=== PATIENT | male | born 1980 | race Caucasian/White ===

== ENCOUNTER 2024-03-17 15:05 | Outpatient (AMB) | payer OTHER, SELFPAY ==
[2024-03-17 15:08] VITALS: BP 128/78; PULSE 54; O2SAT 98; BMI 25.3
--- NOTE | 2024-03-17 15:08 | MHC.PC.OV ---
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 He would like Citalopram 20 mg. continued. 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 ?? Prior PCP:? [facility] Last office visit/CPE:? 1 yr Acute issue(s):? Citalopram refill for Anxiety ?? PMHx:? Finasteride for hair loss. Lipomas SurgHx:?Lipomas, Mohs on R restoration. FHx:? Mom: Degen arthritis, Skin CA. mGF: Early [place] & CVA. Dad: Asthma, HTN, HLD, Depression. SocHx:? Nonsmoker. EtOH Weekends 1-2 or up to 5-6. No drugs PFSH Medical History (Updated 03/17/24 @ 15:36 by Romain Moya) Torn ACL Basal cell carcinoma Lipoma Surgical History (Updated 03/17/24 @ 15:18 by Leti Oconnor CMA) H/O vasectomy Family History (Updated 03/17/24 @ 15:23 by Leti Oconnor CMA) Father High blood pressure High cholesterol Substance abuse in family Mental health disorder Asthma Mother Hx of bilateral hip replacements Substance abuse in family Maternal Grandfather Cardiovascular disease Social History Household Members: Family Both parents involved: No Caregiver staying overnight: No Housing: House Are you a primary daycare teacher to a significant other at home: No Do you presently have visiting nurse or other home services: No 75 years or older and lives alone: No Alcohol intake: current Alcohol intake frequency: a few times a week Alcohol type: beer and other Comment: Weekends Patient Tobacco Use Status: Never used Tobacco e-Cigarette/Vaping Use: Never Used Agree to transfusion: No service: No Current occupational status: employed 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 1. Little interest or pleasure in doing things: not at all 2. Feeling down, depressed, or hopeless: not at all 3. Trouble falling or staying asleep, or sleeping too much: not at all 4. Feeling tired or having little energy: not at all 5. Poor appetite or overeating: not at all 6. Feeling bad about yourself - or that you are a failure or have let yourself or your family down: not at all 7. Trouble concentrating on things, such as reading the newspaper or watching television: not at all 8. Moving or speaking so slowly that other people could have noticed. Or the opposite - being so fidgety or restless that you have been moving around a lot more than usual: not at all 9. Thoughts that you would be better off or of hurting yourself in some way: not at all Total score: 0 Depression Screening Interpretation: Negative Depression Screening Done: Yes 99905 - PHQ-9 Billing: Yes Source: Developed by Drs. Lance Maria, Shakila Sanchez, Nakul Sparks and colleagues, with an educational mario from [employer]. Thrive Questionnaire Date Thrive assessed: 03/17/24 I am a: Patient What is your living situation today?: I have a steady place to live Within the past 12 months, did the food you bought not last and you didn't have the money to get more?: Never true Within the past 12 months, did you worry whether your food would run out before you got money to buy more?: Never true Do you have trouble paying for medicines?: No Do you have trouble getting transportation to medical appointments?: No Do you have trouble paying your heating and electricity bill?: No Do you have trouble taking care of your child, family member or friend?: No Do you have trouble with day-to-day activities such as bathing, preparing meals, shopping, managing finances, etc.?: No Are you currently unemployed and looking for a job?: No Are you interested in more education?: No THRIVE Score: 0 BRADLEY-7 AMB Questionnaire BRADLEY-7 Date BRADLEY - 7 assessed: 03/17/24 Feeling nervous, anxious, or on edge: 0 = Not at all Not being able to stop or control worryin = Not at all Worrying too much about different things: 0 = Not at all Trouble relaxin = Not at all Being so restless that it is hard to sit still: 0 = Not at all Becoming easily annoyed or irritable: 0 = Not at all Feeling afraid as if something awful might happen: 0 = Not at all Total BRADLEY-7 score (0-4 normal; 5-9 mild; 10-14 moderate; 15-21 severe): 0 Source: Developed by Drs. Lance Maria, Shakila Sanchez, Nakul Sparks and colleagues, with an educational mario from [employer]. BRADLEY-7 Assessment Billing BRADLEY-7 Assessment Tool: BRADLEY-7 Assessment 26600 Review of Systems Const Denies chills, Denies fatigue, Denies fever(s), Denies headache(s) and Denies weakness ENT Denies dizziness and Denies headache(s) Card Denies chest pain, Denies lightheadedness, Denies dyspnea and Denies other (Palpitations) Resp Denies cough, Denies dyspnea, Denies wheezing and Denies other ( shortness of breath) Musc Denies numbness and Denies tingling Neuro Denies dizziness, Denies headache(s), Denies numbness, Denies tingling, Denies paresthesias and Denies weakness Psych Denies anxiety and Denies depression Endo Denies fatigue Aller/Immun Denies wheezing Physical exam (Primary Care) BMI result Body Mass Index 25.3 Tobacco/Smoking Status: Tobacco use Status Tobacco use date assessed 03/17/24 03/17/24 15:15 Patient Tobacco Use Status Never used Tobacco 03/17/24 15:15 Depression Screening Interpretation: Negative Const General: no acute distress and well developed Nutritional Appearance: well nourished Orientation/consciousness: patient oriented x3 HENMT Head: Yes normocephalic and Yes atraumatic Eyes General: appearance normal, both eyes and all related structures Pupils: Equal, round and reactive pupils present EOM: EOMs intact bilaterally Resp Effort & Inspection: normal respiratory effort Auscultation: clear to auscultation bilaterally Cardio Rate: regular rate Rhythm: regular rhythm Heart sounds: S1 normal heart sound present, S2 normal heart sound present, no gallops, no murmurs and no rubs Neuro General: patient oriented x3 and gait normal Cranial nerves: Yes Equal, round and reactive pupils present Psych Affect: normal affect Assessment and Plan Assessment & Plan (1) Anxiety: Code(s): F41.9 - Anxiety disorder, unspecified Plan: Well?controlled?on?citalopram?20?mg?daily Continue?current?medication (2) Hair loss: Code(s): L65.9 - Nonscarring hair loss, unspecified Plan: Continue?finasteride (3) Lipoma: Code(s): D17.9 - Benign lipomatous neoplasm, unspecified Plan: History?of?multiple?lipomas Stable (4) Laboratory exam ordered as part of routine general medical examination: Code(s): Z00.00 - Encounter for general adult medical examination without abnormal findings Plan: Check?labs Orders: Orders Comprehensive [place]. Panel Fast Today Z00.00 - Encounter for general adult medical examination without abnormal findings Lipid Panel Today Z00.00 - Encounter for general adult medical examination without abnormal findings Prostate Specific Antigen Scr Today Z12.5 - Encounter for screening for malignant neoplasm of prostate Microalbumin, Random (w Creat) Today I10 - Essential (primary) hypertension TSH reflex Free T4 Today Z00.00 - Encounter for general adult medical examination without abnormal findings UA and rflx microscopic Today Z00.00 - Encounter for general adult medical examination without abnormal findings Medications: New citalopram 20 mg PO DAILY 90 days 90 tabs 2RF Coding Level of Care Code New Pt Level 3 (05382) Diagnoses Anxiety F41.9 Hair loss L65.9 Lipoma D17.9 Laboratory exam ordered as part of routine general medical examination Z00.00 Additional Codes BRADLEY-7 Assessment Billing - BRADLEY-7 Assessment Tool: BRADLEY-7 Assessment 11795 ([id number])
== END 2024-03-17 15:44 | disposition home or self-care (01) ==
PROVIDERS: PCP Family Medicine; Visit Provider Family Medicine
DX: D17.9 Benign lipomatous neoplasm, unspecified (principal); F41.9 Anxiety disorder, unspecified; L65.9 Nonscarring hair loss, unspecified
CPT/HCPCS: 99203

== ENCOUNTER 2024-05-22 08:31 | Outpatient (REF) | payer OTHER, SELFPAY ==
[2024-05-22 09:21] LABS: Appearance Urine Clear; Color Urine Yellow; Glucose Urine UA Negative (Negative); Leukocyte Esterase Urine Negative (Negative); Nitrite Urine Negative (Negative); Specific Gravity - Urine 1.025 (1.005-1.025); Urine Blood Negative (Negative); Urine Ketones Trace mg/dL (Negative); Urine Protein Negative (Neg-Trace)
[2024-05-22 09:55] LABS: Creatinine Urine 203.62 mg/dL; Microalbum/Creatinine Ratio Ur 3.9 ug/mg cr (<30)
[2024-05-22 10:13] LABS: Alanine Aminotransferase 20 U/L (0-40); Albumin Level 4.6 g/dL (3.5-5.0); Alkaline Phosphatase 65 U/L (39-117); Anion Gap 12 (12-20); Aspartate Amino Transferase 44 U/L (5-37); Blood Urea Nitrogen 21 mg/dL (9-16); Calcium 9.7 mg/dL (8.4-10.2); Carbon Dioxide 30 mmol/L (22-29); Chloride 103 mmol/L (96-108); Cholesterol 242 mg/dL (<200); Estimated Glomerular Filt Rate > 60; Glucose Fasting 81 mg/dL (60-99); HDL Cholesterol 60 mg/dL (>40); LDL Cholesterol Calculated 170 mg/dL (<100); Potassium 3.8 mmol/L (3.3-5.1); Sodium 141 mmol/L (135-145); Total Protein 7.4 g/dL (6.5-8.0); Triglycerides 63 mg/dL (<150)
[2024-05-22 10:16] LABS: Prostate Specific Antigen Scr 0.32 ng/mL (<0.05-4.0)
[2024-05-22 10:19] LABS: TSH reflex Free T4 2.05 uIU/mL (0.32-4.0)
== END 2024-05-22 08:32 | disposition home or self-care (01) ==
LOC: HO.WFDLDS 08:31
PROVIDERS: Visit Provider Family Medicine
DX: Z00.00 Encounter for general adult medical examination without abnormal findings (principal); I10 Essential (primary) hypertension; Z12.5 Encounter for screening for malignant neoplasm of prostate
CPT/HCPCS: 36415; 80053; 80061; 81003; 82043; 82570; 84153; 84443

== ENCOUNTER 2024-06-05 16:34 | Outpatient (AMB) | payer OTHER, SELFPAY ==
--- NOTE | 2024-06-05 16:38 | A.OFFPC_ITS ---
Vital Signs 06/05/24 16:39 Height 6 ft 2 in Weight 191 lb 2 oz BMI 24.5 BP 126/74 Blood Pressure Location Lt brachial Position Sitting Respiration 16 Pulse 54 Pulse Source Pulse Oximeter Pulse Oximetry (%) 94 Oxygen Delivery Method Room Air Intake Visit Reasons: cpe with follow up labs Intake Note: Discuss labs. 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 He does not have any health concerns today. Anxiety is well-controlled on citalopram 20 mg daily. We reviewed his lab results dated 05/22/2024. AST mildly elevated at 44. ALT and alkaline phosphatase within normal. Patient says he has been drinking more alcohol during the summer. He was away the weekend before he had the labs done on a trip. Consumed more alcohol at that time. Denies abdominal pain, weight loss, nausea, vomiting. We discussed that his LDL cholesterol is significantly elevated at 170. Patient says he has been eating more indiscriminately over the summer months. HDL cholesterol and triglycerides are within normal. No chest pain or shortness of breath. He is a nonsmoker. He is very active. He plays hockey. Patient sees Dermatology in [place] for skin exams. ROS: Constitutional: No unexplained weight loss, fever, chills, fatigue or night sweats. Eyes: No vision changes, blurry vision, double vision, eye pain, eye redness, eye discharge. ENT: No hearing loss, sneezing, congestion, runny nose or sore throat. Respiratory: No shortness of breath, cough or sputum production. Cardiovascular: No chest pain, chest pressure or chest discomfort. No palpitations or pedal edema. Gastrointestinal: No anorexia, nausea, vomiting or diarrhea. No abdominal pain or blood in stool. Genitourinary: No dysuria, hematuria, urinary frequency. No testicular masses, swelling or pain. Neurologic: No headache, dizziness, syncope, unilateral weakness, ataxia, numbness or tingling in the extremities. Musculoskeletal: No muscle pain, back pain, joint pain or swelling. Hematologic/Lymphatics: No bleeding or bruising. No painful lymph nodes. Skin: No rash or itching. Endocrine: No cold or heat intolerance. No polyuria or polydipsia. Psychiatric: No depression or anxiety. No SI/HI. Physical exam: Constitutional: Alert, in no distress. Head: Normocephalic. Eyes: Pupils are equal, round and reactive to light. Extraocular muscles intact. Ear, Nose and Throat: Canals clear. TMs normal. Normal nasal mucosa. No nasal discharge. No oral lesions. Neck: Supple, Full range of motion. No lymphadenopathy. No palpable thyroid masses. Respiratory: Clear to auscultation. Cardiovascular: S1 S2 regular. No murmurs. Gastrointestinal: Abdomen soft, non-tender, non-distended. Normal bowel sounds. No palpable masses. Genitourinary: Deferred exam. Neurologic: No focal neurological deficits. Symmetric patellar reflexes. Moves all extremities spontaneously. Sensation intact bilaterally. Skin: No rashes or lesions. Musculoskeletal: No gross deformities. Normal range of motion. Extremities: Warm and well perfused. No clubbing, cyanosis or edema. 3+ peripheral pulses bilaterally. Psychiatric: Normal mood and affect [facility] Medical History (Updated 06/06/24 @ 08:50 by BAIRON Portillo) Hyperlipidemia Liver enzyme elevation Torn ACL Basal cell carcinoma Lipoma Surgical History (Updated 03/17/24 @ 15:18 by Leti Oconnor CMA) H/O vasectomy Family History (Updated 03/17/24 @ 15:23 by Leti Oconnor CMA) Father High blood pressure High cholesterol Substance abuse in family Mental health disorder Asthma Mother Hx of bilateral hip replacements Substance abuse in family Maternal Grandfather Cardiovascular disease Social History (Updated 03/17/24 @ 15:29 by Leti Oconnor CMA) Household Members: Family Both parents involved: No Caregiver staying overnight: No Housing: House Are you a primary neurocritical care physician to a significant other at home: No Do you presently have visiting nurse or other home services: No 75 years or older and lives alone: No Alcohol intake: current Alcohol intake frequency: a few times a week Alcohol type: beer and other Comment: Weekends Patient Tobacco Use Status: Never used Tobacco e-Cigarette/Vaping Use: Never Used Agree to transfusion: No service: No Current occupational status: employed 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 Lance Maria, Shakila Sanchez, Nakul Sparks and colleagues, with an educational mario from [employer]. Physical exam (Primary Care) Vital Signs: Last Vital Signs Pulse 54 06/05/24 16:39 Resp 16 06/05/24 16:39 BP 126/74 06/05/24 16:39 Pulse Ox 94 06/05/24 16:39 Oxygen Delivery Method Room Air 06/05/24 16:39 BMI result Body Mass Index 24.5 Tobacco/Smoking Status: Tobacco use Status Tobacco use date assessed 03/17/24 06/05/24 16:41 Patient Tobacco Use Status Never used Tobacco 06/05/24 16:41 e-Cigarette/Vaping Use Never Used 06/05/24 16:41 Thrive Assessment: Date of Thrive Assessment Date Thrive assessed 03/17/24 06/05/24 16:41 Assessment and Plan Assessment & Plan (1) Routine physical examination: Code(s): Z00.00 - Encounter for general adult medical examination without abnormal fin dings Plan: Patient is seen today for a routine physical. As part of this visit we reviewed the following issues, which are considered and essential part of preventative health in this age group: - Testicular cancer screening, which includes self exam teaching - Screening for colon cancer - Referred. - Discussed Prostate cancer screening - PSA normal. - Blood pressure screening - Cholesterol screening - Nutritional and exercise counseling - Counseling of injury prevention including fire prevention, smoke alarms and seat belt usage - Screening for depression - Education about skin cancer - Recommendations about immunizations - Recommendation of an eye exam - Screening for substance abuse (2) Liver enzyme elevation: Code(s): R74.8 - Abnormal levels of other serum enzymes Plan: Mildly elevated liver enzyme. Suspect this is related to alcohol consumption over the summer. He will decrease and have labs repeated. Advised to call if he develops GI symptoms. (3) Hyperlipidemia: Code(s): E78.5 - Hyperlipidemia, unspecified Qualifiers: Hyperlipidemia type: pure hypercholesterolemia Qualified Code(s): E78.00 - Pure hypercholesterolemia, unspecified Plan: Trial of lifestyle modifications. Cholesterol goals: LDL cholesterol: Less than 130 (Limit consumption of red meat and animal fats,, fried foods and saturated fats to decrease this number. Avoid tobacco use) HDL cholesterol: More than 40 (Eat more nuts and fish (if no allergies) and exercise regularly to increase this number) Triglycerides: Less than 150 (Limit alcohol use, carbohydrates and concentrated sugars to decrease this number) Moderate intensity exercise for thirty minutes per day for at least 5 days per week is recommended. Repeat labs in 8 weeks. Plan CPE 1 year. Orders: Orders Lipid Panel 06/05/24 E78.5 - Hyperlipidemia, unspecified Alanine Aminotransferase 06/05/24 E78.5 - Hyperlipidemia, unspecified, R79.89 - Other specified abnormal findings of blood chemistry Aspartate Amino Transferase 06/05/24 E78.5 - Hyperlipidemia, unspecified, R79.89 - Other specified abnormal findings of blood chemistry Referrals Open Access Screening Colonoscopy Referral Z12.11 - Encounter for screening for malignant neoplasm of colon, Z12.12 - Encounter for screening for malignant neoplasm of rectum Medications: Refilled citalopram 20 mg PO DAILY 90 days 90 tabs 3RF Coding Level of Care Code Est Pt Prev Care 40-64y(04741) Diagnoses Routine physical examination Z00.00 Liver enzyme elevation R74.8 Pure hypercholesterolemia E78.00 Hyperlipidemia type: pure hypercholesterolemia
[2024-06-05 16:39] VITALS: BP 126/74; PULSE 54; RESP 16; O2SAT 94; BMI 24.5
== END 2024-06-05 16:59 | disposition home or self-care (01) ==
LOC: HO.HMGFM 16:34
PROVIDERS: PCP Family Medicine; Visit Provider Physician Assistant Medical
DX: Z00.00 Encounter for general adult medical examination without abnormal findings (principal); R74.8 Abnormal levels of other serum enzymes; E78.00 Pure hypercholesterolemia, unspecified
CPT/HCPCS: 99396

== ENCOUNTER 2024-10-08 10:27 | Outpatient (REF) | payer OTHER, SELFPAY ==
[2024-10-08 14:48] LABS: Alanine Aminotransferase 27 U/L (0-40); Aspartate Amino Transferase 50 U/L (5-37); Cholesterol 223 mg/dL (<200); HDL Cholesterol 46 mg/dL (>40); LDL Cholesterol Calculated 158 mg/dL (<100); Triglycerides 97 mg/dL (<150)
== END 2024-10-08 10:28 | disposition home or self-care (01) ==
LOC: HO.WFDLDS 10:27
PROVIDERS: Visit Provider Physician Assistant Medical
DX: E78.5 Hyperlipidemia, unspecified (principal); R79.89 Other specified abnormal findings of blood chemistry
CPT/HCPCS: 36415; 80061; 84450; 84460

== ENCOUNTER 2024-11-07 12:54 | Outpatient (REF) | payer OTHER, SELFPAY | END 2024-11-07 12:55 | disposition home or self-care (01) | LOC: HO.US 12:54 | PROVIDERS: PCP Family Medicine; Visit Provider Physician Assistant Medical | DX: R74.8 Abnormal levels of other serum enzymes (principal) ==

== ENCOUNTER → 2024-11-07 12:55 | Outpatient (BNV) | payer OTHER, SELFPAY | PROVIDERS: PCP Family Medicine; Visit Provider Radiology Diagnostic Radiology | DX: R74.8 Abnormal levels of other serum enzymes (principal) | CPT/HCPCS: 76705 ==

== ENCOUNTER 2024-11-18 09:18 | Outpatient (REF) | payer OTHER, SELFPAY ==
--- OUTSIDE RECORDS SUMMARY | 2024-11-18 10:01 | XMS_ITS | Clinical Summary ---
Author Organization [employer] Address [address] [place] [address] [address] [place] [address] Care Team Providers Care Price Accuracy Supervisor Name Role Phone Unavailable Primary Care Provider Unavailabl e Social History Tobacco Use Types Packs/Day Years Used Date Smoking Tobacco: Never Assessed Sex and Gender Information Value Date Recorded Sex Assigned at Male 07/31/2022 10:40 AM EDT Legal Sex Male 10:40 AM EDT Gender Identity Male 07/31/2022 10:40 AM EDT Sexual Orientation Straight 07/31/2022 10 :40 AM EDT Plan of Treatment Health Maintenance Due Date Last Done Comments CT Colonography 1978 Colonoscopy 1978 Colorectal Cancer Screening 1978 Dental Oral Exam 1978 Dental Prophylaxis 1978 Dental X-Ray: Bitewings 1978 Dental X-Ray: Full Mouth 1978 Depression Screening 1978 FIT DNA/Cologuard 1978 FIT 1978 FOBT 1978 HIV Screening 1978 Lipid Panel 1978 SDOH Screening 1978 Sigmoidoscopy 1978 Alcohol/Substance Use Screening 1990 Tobacco Screening 1990 Family Planning (PISQ) 1993 Hepatitis C Screening 01/17/1996 Hepatitis B Vaccines (1 of - + 3-dose series) 1997 COVID-19 Vaccine (2023-2 5 season) 2024 03/24/2021, 02/12/2021 Influenza Vaccine (#1) 2024 Zoster Vaccines (1 of 2) 01/17/2028 DTaP/Tdap/Td Vaccines (3 - T d or Tdap) 10/10/2031 10/10/2021, 10/01/2011, 08/25/2003 RSV Patients and Patients Aged 60 years or older (1 - 1-dose 75+ series) 2053 HIB Vaccines Aged Out No longer eligi ble based on patient's age to complete this topic HPV Vaccines Aged Out No longer eligi ble based on patient's age to complete this topic Hepatitis A Vaccines Aged Out No long er eligible based on patient's age to complete this topic IPV Vaccines Aged Out No longer eligi ble based on patient's age to complete this topic Meningococcal Vaccine Aged Out No lakhwinder erin eligible based on patient's age to complete this topic Pneumococcal Vaccine: Pediatrics (0 to 5 Years) and At-Risk Patients (6 to 49) Years) Aged Out No longer eligible b ased on patient's age to complete this topic RSV under 20 months Aged Out No longe r eligible based on patient's age to complete this topic Rotavirus Vaccines Aged Out No longer eligible based on patient's age to complete this topic Insurance [facility] MEDICAID STAND ADULT
--- OUTSIDE RECORDS SUMMARY | 2024-11-18 10:01 | XMS_ITS | Data Portability ---
Author Organization [facility], Main Office Address [address] [place] [address] Care Team Providers Care Director Of Product Design Name Role Phone JUAN STRONG Referring Provider [phone] EDDA LEW Primary Care Provider [phone] Assessment No assessment recorded. Plan of Treatment Reminders Order Date Submit Date Provider Last Modified By Organization Details Last Modified Time Details Appointments None record ed. Lab urinal ysis, dipsti ck 2021 [email or web address] In-Office Order, Internal Use Only DO Not Attach Compendium DO Not Attach Compendium, Do Not Delete/merge, [id number] 15:51:30 CT + NG DNA, PCR, urine 2021 [facility], [address], [address], [place], [address], 2 16:29:37 hepati tis C virus Ab, serum 2021 [facility], [address], [address], [facility] [place], [address], 3 11:25:41 lipid panel, serum 2021 [facility], [address], [address], [facility] [place], [address], 3 14:57:40 CMP, serum or plasma 2021 [facility], [address], [address], [place], [address], 3 14:57:38 hepati tis C virus Ab, serum 2021 022 [facility], [address], [address], [place], [address], 2 15:14:56 lipid panel, serum 2021 022 [email or web address] [facility], [address], [address], [place], [address], 2 09:20:48 CMP, serum or plasma 2021 022 [email or web address] [facility], [address], [address], [place], [address], 2 09:20:47 Referral genera l surgeo n referr al 2022 023 gama Jama MD, [address] [place] [address] [address], [place], [address], 3 09:49:38 dermat ologis t referr al 2022 023 [email or web address] Not available 3 11:58:34 gastro entero logist referr al - Needs colon cancer screen ing 2022 023 [email or web address] [facility], [address] [place], [address], 3 16:02:15 urolog ist referr al - Urethr itis. 2021 022 [email or web address] [facility], [address], [place], [address], 2 09:52:09 ophtha lmolog ist referr al 2021 022 gama Not available 3 09:17:59 Procedures colono scopy screen ing (PROC) 2022 023 In-Office Order, Internal Use Only DO Not Attach Compendium DO Not Attach Compendium, Do Not Delete/merge, [id number] 08:40:27 Surgeries None record ed. Imaging None record ed. Medication Orders hydroc ortiso ne 2.5 % topica l cream with perine al applic ator 2022 023 HOMER MD [facility], [address] [place], [address], 14:56:56 erythr omycin 5 mg/gra m (0.5 %) eye ointme nt 2021 [email or web address] [facility][id number], [address] [place], [address], 15:32:04 citalo pram 20 mg tablet 2021 [facility], [address] [place], [address], 14:42:12 Patient TargetsNo targets recorded. Patient Instructions Encounter Date Encounter Id Patient Instructions Last Modified By Organization Details Last Modified Time 10/10/2021 [id number] Well Visit, Ages 18 to 65: Care Instructions pmadden Not available 10/10/2021 15:14:49 testicular self-exam: care instructions pmadden Not available 10/10/2021 15:14:49 A healthy lifestyle: care instructions pmadden Not available 10/10/2021 15:14:49 Medications (OTC , herbal therapies, supplements) reviewed and reconciled with patient and or caregiver, including potential side effects, drug interactions, instructions, and the consequences of not taking medication. Reviewed potential barriers to medication adherence, such as side effects from medication or cost of medication. pmadden Not available 10/10/2021 15:07:45 12/26/2021 [id number] Preventing Depression From Coming Back: Care Instructions pmadden Not available 12/26/2021 14:47:41 depression treatment: care instructions pmadden Not available 12/26/2021 14:47:41 Medications (OTC , herbal therapies, supplements) reviewed and reconciled with patient and or caregiver, including potential side effects, drug interactions, instructions, and the consequences of not taking medication. Reviewed potential barriers to medication adherence, such as side effects from medication or cost of medication. pmadden Not available 12/26/2021 14:42:01 07/06/2022 [id number] styes and chalazia: care instructions pmadden Not available 07/06/2022 11:50:32 check fasting labs before upcoming PE pmadden Not available 07/06/2022 12:54:13 10/23/2022 [id number] learning about colon cancer pmadden Not available 10/23/2022 14:44:53 Well Visit, Ages 18 to 65: Care Instructions pmadden Not available 10/23/2022 14:44:54 A healthy lifestyle: care instructions pmadden Not available 10/23/2022 14:44:53 testicular self-exam: care instructions pmadden Not available 10/23/2022 14:44:53 Medications (OTC , herbal therapies, supplements) reviewed and reconciled with patient and or caregiver, including potential side effects, drug interactions, instructions, and the consequences of not taking medication. Reviewed potential barriers to medication adherence, such as side effects from medication or cost of medication. 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 Supervisor Referral for Screening for malignant neoplasm of colon Needs colon cancer screening Referring Physician: Edda Lew, Internal Medicine, Encounter Date: 10/23/2022 Desktop Publisher Referral for H istory of malignant basal cell neoplasm of skin Referring Physician: Edda Lew, Internal Medicine, Encounter Date: 10/23/2022 General Surgeon Referral for Lipoma Referring Physician: Edda Lew, Internal Medicine, Encounter Date: 10/23/2022 Results Created Date Observation Date Name Description Value Unit Range Abnormal Flag Note LastModifiedBy Organization Detail LastModifiedTime 07/26/20 22 07/27/2022 URINE CHLAM YDIA GC AMP PROBE urine chlamydia amp probe (neg) NEGAT YOMAIRA No Chlam ydia Trach omati s RNA detec marco antonio in this patie nt's sampl e (REFE RENCE RANGE /NORM AL VALUE : NOT DETEC MARCO ANTONIO) Note: This test uses trans cript ion- media marco antonio ampli ficat ion metho d to detec t rRNA from C. Trach omati s Not Available [facility] [address], [place], [address], 07/27/2022 16:29:37 07/26/2007/27/2022 URINE CHLAM YDIA GC AMP PROBE urine GC amp probe (neg) NEGAT YOMAIRA No Neiss eria Gonor rhoea e RNA detec marco antonio in this patie nt's sampl e (REFE RENCE RANGE /NORM AL VALUE : NOT DETEC MARCO ANTONIO) NOTE: This test uses trans cript ion-m ediat ed ampli ficat ion metho d to detec t rRNA from N.Jose L orrho eae. A negat yomaira resul t does not precl ude infec tion. In the case of a negat yomaira urine resul t, testi ng of an endoc ervic al(fe male) or ureth ral (male ) speci men is recom mark d if there is high clini adán suspi cion of infec tion. Due to very high sensi tivit y of Nucle ic Acid Ampli ficat ion Test, false posit yomaira resul ts may occur . There fore, speci men handl ing is extre analisa impor tant. In patie nts in whom the disea se is unlik kindra, addit ional sampl e for testi ng shoul d be consi dered after an initi al posit yomaira resul t. The perfo rmanc e wali cteri stics of this test have not been evalu ated in child shanelle. The Aptim a Combo 2 assay is not inten ded for the evalu ation of suspe cted sexua l abuse or for other medic o-leg al indic ation s. The order ing provi veda shoul d asses s if the patie nt had conse nsual sex witho ut risk of sexua l abuse . Consu lt [facility] if neede d. Conta ct phone numbe r . Thera peuti c failu re or succe ss canno t be deter mined with the Aptim a Combo 2 assay since nucle ic acid may persi st follo wing appro priat e antim icrob ial thera py. The Cente rs for Disea se Contr ol and Preve ntion ([facility]) recom mends confi rmato ry retes ting using cultu re or a diffe rent nucle ic acid ampli ficat ion test when posit yomaira resul ts occur , if indic ated. Not Available [facility] [address], [place], [address], 07/27/2022 16:29:37 07/26/20 22 07/26/2022 urina lysis , dipst ick Leukocytes Negati ve Not Available In-Office Order Internal Use Only DO Not Attach Compendium DO Not Attach Compendium, Do Not Delete/merge, [id number] 07/26/2022 15:27:09 07/26/20 22 07/26/2022 urina lysis , dipst ick Nitritie negati ve Not Available In-Office Order Internal Use Only DO Not Attach Compendium DO Not Attach Compendium, Do Not Delete/merge, [id number] 07/26/2022 15:27:09 07/26/20 22 07/26/2022 urina lysis , dipst ick Urobilinogen .2 Not Available In-Of fice Order Internal Use Only DO Not Attach Compendium DO Not Attach Compendium, Do Not Delete/merge, [id number] 07/26/2022 15:27:09 07/26/20 22 07/26/2022 urina lysis , dipst ick Protein Negati ve Not Available In-Office Order Internal Use Only DO Not Attach Compendium DO Not Attach Compendium, Do Not Delete/merge, [id number] 07/26/2022 15:27:09 07/26/20 22 07/26/2022 urina lysis , dipst ick pH 6.0 Not Available In-Office Order Internal Use Only DO Not Attach Compendium DO Not Attach Compendium, Do Not Delete/merge, [id number] 07/26/2022 15:27:09 07/26/20 22 07/26/2022 urina lysis , dipst ick Blood Negati ve Not Available In-Office Order Internal Use Only DO Not Attach Compendium DO Not Attach Compendium, Do Not Delete/merge, [id number] 07/26/2022 15:27:09 07/26/20 22 07/26/2022 urina lysis , dipst ick Specific [place] 1.015 Not Available In-Off ice Order Internal Use Only DO Not Attach Compendium DO Not Attach Compendium, Do Not Delete/merge, [id number] 07/26/2022 15:27:09 07/26/20 22 07/26/2022 urina lysis , dipst ick Ketone Negati ve Not Available In-Office Order Internal Use Only DO Not Attach Compendium DO Not Attach Compendium, Do Not Delete/merge, [id number] 07/26/2022 15:27:09 07/26/20 22 07/26/2022 urina lysis , dipst ick Bilirubin Negati ve Not Available In-Office Order Internal Use Only DO Not Attach Compendium DO Not Attach Compendium, Do Not Delete/merge, [id number] 07/26/2022 15:27:09 07/26/20 22 07/26/2022 urina lysis , dipst ick Glucose Negati ve Not Available In-Office Order Internal Use Only DO Not Attach Compendium DO Not Attach Compendium, Do Not Delete/merge, [id number] 07/26/2022 15:27:09 07/26/20 22 07/26/2022 urina lysis , dipst ick Appearance Clear Not Available In-Offi ce Order Internal Use Only DO Not Attach Compendium DO Not Attach Compendium, Do Not Delete/merge, [id number] 07/26/2022 15:27:09 07/26/20 22 07/26/2022 urina lysis , dipst ick Color Pale Yellow Not Available In-Office Order Internal Use Only DO Not Attach Compendium DO Not Attach Compendium, Do Not Delete/merge, [id number] 07/26/2022 15:27:09 10/18/19 23 10/18/2022 COMPR EHENS YOMAIRA METAB OLIC PANL glucose 86 mg/dL (70-99 ) Not Available [facility] [address] [place], [address], 10/18/2022 14:57:38 10/18/19 23 10/18/2022 COMPR EHENS YOMAIRA METAB OLIC PANL BUN 6 mg/dL (6-20) Not Available [facility] [address] [place], [address], 10/18/2022 14:57:38 10/18/19 23 10/18/2022 COMPR EHENS YOMAIRA METAB OLIC PANL creatinine 1.1 mg/dL (0.7-1 .2) Not Available [facility] [address] [place], [address], 10/18/2022 14:57:38 10/18/19 23 10/18/2022 COMPR EHENS YOMAIRA METAB OLIC PANL sodium 142 mmol/ L (133-1 45) Not Available [facility] [address] [place], [address], 10/18/2022 14:57:38 10/18/19 23 10/18/2022 COMPR EHENS YOMAIRA METAB OLIC PANL potassium 4.2 mmol/ L (3.6-5 .2) Not Available [facility] [address] [place], [address], 10/18/2022 14:57:38 10/18/19 23 10/18/2022 COMPR EHENS YOMAIRA METAB OLIC PANL chloride 103 mmol/ L (98-10 7) Not Available [facility] [address] [place], [address], 10/18/2022 14:57:38 10/18/19 23 10/18/2022 COMPR EHENS YOMAIRA METAB OLIC PANL bicarbonate 33 mmol/ L (22-29 ) high Not Available [facility] [address] [place], [address], 10/18/2022 14:57:38 10/18/19 23 10/18/2022 COMPR EHENS YOMAIRA METAB OLIC PANL anion gap 6 (4-17) Not Available [facility] [address] [place], [address], 10/18/2022 14:57:38 10/18/19 23 10/18/2022 COMPR EHENS YOMAIRA METAB OLIC PANL albumin 4.8 gm/dL (3.4-4 .8) Not Available [facility] [address] [place], [address], 10/18/2022 14:57:38 10/18/19 23 10/18/2022 COMPR EHENS YOMAIRA METAB OLIC PANL calcium 9.3 mg/dL (8.6-1 0.5) Not Available [facility] [address] [place], [address], 10/18/2022 14:57:38 10/18/19 23 10/18/2022 COMPR EHENS YOMAIRA METAB OLIC PANL bilirubin,to grant 0.5 mg/dL (0-1.2 ) Not Available [facility] [address] [place], [address], 10/18/2022 14:57:38 10/18/19 23 10/18/2022 COMPR EHENS YOMAIRA METAB OLIC PANL total protein 6.9 gm/dL (6.2-8 .2) Not Available [facility] [address] [place], [address], 10/18/2022 14:57:38 10/18/19 23 10/18/2022 COMPR EHENS YOMAIRA METAB OLIC PANL Ag ratio 2.3 Not Available [facility] [address] [place], [address], 10/18/2022 14:57:38 10/18/19 23 10/18/2022 COMPR EHENS YOMAIRA METAB OLIC PANL AST 33 U/L (0-40) Not Available [facility] [address] [place], [address], 10/18/2022 14:57:38 10/18/19 23 10/18/2022 COMPR EHENS YOMAIRA METAB OLIC PANL alk phos 66 U/L (40-12 9) Not Available [facility] [address] [place], [address], 10/18/2022 14:57:38 10/18/19 23 10/18/2022 COMPR EHENS YOMAIRA METAB OLIC PANL ALT 14 U/L (0-41) Not Available [facility] [address] [place], [address], 10/18/2022 14:57:38 10/18/19 23 10/18/2022 COMPR EHENS YOMAIRA METAB OLIC PANL estimated GFR creatinine 89 mL/mi n/1.7 3_M2 Creat inine based estim ated glome rular filtr ation (eGFR ) in adult s is calcu lated using the Natio nal Kidne y Found ation recom mark d 2020 CKD-E PI equat ion. Estim ates GFR from serum creat inine , age and sex. Not Available [facility] [address] [place], [address], 10/18/2022 14:57:38 10/18/19 23 10/18/2022 LIPID PANEL cholesterol, total 228 mg/dL (<200) high Not Available [facility] [address] [place], [address], 10/18/2022 14:57:40 10/18/19 23 10/18/2022 LIPID PANEL triglyceride 135 mg/dL (<150) Not Available [facility] [address] [address] [place], [address], 10/18/2022 14:57:40 10/18/19 23 10/18/2022 LIPID PANEL HDL chol 43 mg/dL (>39) Not Available [facility] [address] [place], [address], 10/18/2022 14:57:40 10/18/19 23 10/18/2022 LIPID PANEL LDL cholesterol, calculated 158 mg/dL (0-130 ) high Not Available [facility] [address] [place], [address], 10/18/2022 14:57:40 10/18/19 23 10/18/2022 LIPID PANEL non HDL cholesterol (calc) 185 mg/dL (<160) high Not Available [facility] [place], [address], 10/18/2022 14:57:40 10/18/19 23 10/19/2022 ANTI- HEPAT ITIS C anti-hepatit is C (neg) normal NEGAT YOMAIRA Refer ence range : Negat yomaira This test was perfo rmed on the Abbot t Archi tect immun oassa y syste m. Not Available [facility] [address] [place], [address], 10/19/2022 11:25:41 Result Notes None recorded. Problems Name Problem SNOMED Code Status Onset Date Resolution Date Notes Provider Name and Address Organization Details Recorded Time Bronchos pasm 6439163 Completed 200704/21/2014 RECORDED 07/20/20 08 8:10AM BY MARTHA CHEN MA, ANNOTATI ON/BERNABE bar [facility] 6 14:48:53 Acute pharyngi tis 526600515 Completed 201304/21/2014 RECORDED 02/14/20 14 2:40PM BY VENU JAMES MA, ANNOTATI ON/BERNABE bar [facility] 6 14:48:53 Acute upper respirat ory infectio n 19760821 Completed 201304/21/2014 RECORDED 11/06/19 14 12:41PM BY PHIL LATHAM MA, CRISTINE ON/ADDMAYTE bar, [facility] 6 14:48:53 Disorder of bone and articula r cartilag e 775055064 Active 2013 Not Available [facility] 1 14:45:12 Backache 448722039 Active 2013 Not Available [facility] 1 14:45:12 Cough 78419067 Completed 201304/21/2014 STORY: POSSIBLE EARLY SINUS INFXN, AT RISK FROM DUST EXPOSURE ; RECORDED 11/06/19 14 12:41PM BY PHIL LATHAM MA, CRISTINE ON/ADDEN RUPALI bar, [facility] 6 14:48:53 Disorder of skin 30203193 Completed 200704/21/2014 RECORDED 07/20/20 08 9:11AM BY CRISTINE CRISTOBAL ON/BERNABE bar, [facility] 6 14:48:53 Enthesop athy of hip region 21837432 Completed 200704/21/2014 RECORDED 07/20/20 08 8:11AM BY MARTHA CHEN MA, CRISTINE ON/BERNABE bar, [facility] 6 14:48:53 Fever 789632212 Completed 200704/21/2014 RECORDED 07/20/20 08 8:10AM BY MARTHA CHEN MA, ANNOTATI ON/BERNABE bar, [facility] 6 14:48:53 Adult health examinat ion Completed 201303/12/2017 RECORDED 02/14/20 14 2:41PM BY VENU JAMES MA, OFFICE VISIT Jenny bar, [facility] 7 15:30:27 General examinat ion of patient Completed 200704/21/2014 RECORDED 07/20/20 08 8:10AM BY MARTHA CHEN MA, CRISTINE ON/ADDEN RUPALI matos null, [facility] 6 14:48:53 Lipoma 86436408 Active 2013 Not Available [facility] 1 14:45:12 Lipoma 97807381 Completed 201304/21/2014 RECORDED 11/06/19 14 12:41PM BY PHIL LATHAM MA, CRISTINE ON/ADDEN DUM Jenny bar, [facility] 7 15:31:06 Alopecia 50239323 Completed 201308/11/2019 Edda Lew PA-C [address] [address], [place], [address] , [facility] 9 20:35:11 Closed fracture of metatars al bone 43987728 Completed 201304/21/2014 RECORDED 11/06/19 14 12:41PM BY PHIL LATHAM MA, CRISTINE ON/ADDMAYTE bar, [facility] 6 14:48:53 Administ ration of diphther ia and tetanus vaccine Completed 200704/21/2014 RECORDED 07/20/20 08 8:11AM BY MARTHA CHEN MA, CRISTINE ON/ADDEN DUM Ivonne bar, [facility] 6 14:48:53 Patient status finding [id number] Completed 201303/12/2017 RECORDED 02/14/20 14 2:41PM BY VENU JAMES MA, OFFICE VISIT Jenny bar, [facility] 7 15:30:00 Patient status finding [id number] Completed 201304/21/2014 RECORDED 02/14/20 14 2:40PM BY VENU JAMES MA, ANNOTATI ON/ADDEN DUM Jenny Pandya MA null, [facility] 7 15:30:00 Shoulder joint pain 756693810 Completed 201004/21/2014 RECORDED 10/28/19 11 3:46PM BY GRAYSON ERAZOATI ON/ADDEN DUM Ivonne matos null, [facility] 6 14:48:53 Adult health examinat ion Completed 201304/21/2014 RECORDED 11/06/19 14 12:41PM BY PHIL LATHAM MA, ANNOTATI ON/ADDEN DUM Jenny Pandya MA null, [facility] 7 15:30:27 Sciatica 61399374 Active 2013 Not Available [facility] 1 14:45:12 Chronic sinusiti s 48663179 Completed 201304/21/2014 IMPRESSI ON: ENCOURAG E REST AND HYDRATIO N. RTC IF PERSISTE NT OR WORSENIN G SYMPTOMS .; RECORDED 02/14/20 14 2:40PM BY VENU JAMES MA, ANNOTATI ON/ADDEN DUM Ivonne Vale ro null, [facility] 6 14:48:53 Acute sinusiti s 47244215 Completed 200704/21/2014 RECORDED 07/20/20 08 8:10AM BY MARTHA CHEN MA, ANNOTATI ON/ADDEN DUM Ivonne matos null, [facility] 6 14:48:53 Temporom andibula r joint disorder 03745687 Completed 200704/21/2014 RECORDED 07/20/20 08 9:11AM BY GRAYSON CRISTOBALATI ON/ADDEN DUM Ivonne Vale ro null, [facility] 6 14:48:53 Viral disease 28936887 Completed 201004/21/2014 RECORDED 10/28/19 11 3:46PM BY MA NATASHA LAUREN, ANNOTATI ON/ADDEN DUM Ivonne D'Alessand ro null, [facility] 6 14:48:53 Bronchos pasm 8632780 Completed 200705/11/2014 RECORDED 07/20/20 08 8:10AM BY MARTHA CHEN MA, ANNOTATI ON/ADDEN DUM Ivonne [place]'Alessand ro null, [facility] 6 14:48:53 Acute pharyngi tis 350296003 Completed 201305/11/2014 RECORDED 02/14/20 14 2:40PM BY EVNU JAMES MA, ANNOTATI ON/ADDEN DUM Ivonne [place]'Alessand ro null, [facility] 6 14:48:53 Acute upper respirat ory infectio n 94458507 Completed 201305/11/2014 RECORDED 11/06/19 14 12:41PM BY PHIL LATHAM MA, ANNOTATI ON/ADDEN DUM Ivonne [place]'Alessand ro null, [facility] 6 14:48:53 Cough 63322186 Completed 201305/11/2014 STORY: POSSIBLE EARLY SINUS INFXN, AT RISK FROM DUST EXPOSURE ; RECORDED 11/06/19 14 12:41PM BY PHIL LATHAM MA, ANNOTATI ON/ADDEN DUM Ivonne [place]'Alessand ro null, [facility] 6 14:48:53 Disorder of skin 67688085 Completed 200705/11/2014 RECORDED 07/20/20 08 9:11AM BY ALEJO DENSON, GRAYSONATI ON/ADDEN DUM Ivonne [place]'Alessand ro null, [facility] 6 14:48:53 Enthesop athy of hip region 83766888 Completed 200705/11/2014 RECORDED 07/20/20 08 8:11AM BY MRATHA CHEN MA, ANNOTATI ON/ADDEN DUM Ivonne [place]'Alessand ro null, [facility] 6 14:48:53 Fever 157112951 Completed 200705/11/2014 RECORDED 07/20/20 08 8:10AM BY MARTHA CHEN MA, GRAYSONATI ON/ADDEN DUM Ivonne [place]'Alessand ro null, [facility] 6 14:48:53 General examinat ion of patient Completed 200705/11/2014 RECORDED 07/20/20 08 8:10AM BY MARTHA CHEN MA, GRAYSONATI ON/ADDEN DUM Ivonne [place]'Alessand ro null, [facility] 6 14:48:53 Closed fracture of metatars al bone 87741794 Completed 201305/11/2014 RECORDED 11/06/19 14 12:41PM BY PHIL LATHAM MA, GRAYSONATI ON/ADDEN DUM Ivonne [place]'Alessand ro null, [facility] 6 14:48:53 Administ ration of diphther ia and tetanus vaccine Completed 200705/11/2014 RECORDED 07/20/20 08 8:11AM BY MARTHA CHEN MA, CRISTINE ON/ADDEN DUM Ivonne [place]'Alessand ro null, [facility] 6 14:48:53 Shoulder joint pain 941785581 Completed 201005/11/2014 RECORDED 10/28/19 11 3:46PM BY CRISTINE ERAZO ON/ADDEN [facility] Ivonne Lund[place]'Alessdarrell ro null, [facility] 6 14:48:53 Chronic sinusiti s 31553327 Completed 201305/11/2014 IMPRESSI ON: ENCOURAG E REST AND HYDRATIO N. RTC IF PERSISTE NT OR WORSENIN G SYMPTOMS .; RECORDED 02/14/20 14 2:40PM BY VENU JAMES MA, ANNOTATI ON/ADDEN DUM Ivonne Lund[place]'Alessand ro null, [facility] 6 14:48:53 Acute sinusiti s 64081778 Completed 200705/11/2014 RECORDED 07/20/20 08 8:10AM BY MARTHA CHEN MA, ANNOTATI ON/ADDEN [facility] Ivonne LundbergRamon ro null, [facility] 6 14:48:53 Temporom andibula r joint disorder 81819997 Completed 200705/11/2014 RECORDED 07/20/20 08 9:11AM BY ALEJO DENSON, ANNOTATI ON/ADDEN [facility] null, [facility] 6 14:48:53 Viral disease 96821718 Completed 201005/11/2014 RECORDED 10/28/19 11 3:46PM BY CARLOS A AGUILAR, GRAYSONATI ON/[facility] null, [facility] 6 14:48:53 Swelling of testicle 371129425 Active Not Available [facility] 14:45:12 Ultrasou nd scan abnormal 270907250 Active Not Available [facility] 14:45:12 Hyperlip idemia 71211237 Completed 08/11/2019 Edda Lew PA-C [address], [place], [address] , [facility] 9 20:45:53 Hemorrho ids 36303897 Active Not Available [facility] 14:45:12 History of malignan t basal cell neoplasm of skin 118498421 Active 2018 Not Available [facility] 14:45:12 Male pattern alopecia 97210711 Active 2018 Not Available [facility] 14:45:12 Lumbosac ral radiculi tis 52775739 Active 2020 Edda Lew PA-C [address], [place], [address] , [facility] 1 13:51:59 Pain of left knee joint 65851555405 4107 Active 2021 Edda Lew PA-C [address], [place], [address] , [facility] 2 12:43:11 Lipoma of skin 870466746 Active 2021 Edda Lew PA-C [address] [address], [place], [address] , [facility] 2 12:53:50 Major depressi ve disorder 482220184 Active 2022 Edda Lew PA-C [address], [place], [address] , [facility] 3 14:41:30 Problem Notes None recorded. Procedures Surgical History Date Name Laterality Status Provider Name and Address Organization Details Recorded Time excision of lipoma completed Edda Lew PA-C [address] [address], [place], [address], [facility] 08/05/2018 20:40:10 Imaging Results None recorded. Procedure Notes None recorded. Medical Equipment None Reported. Allergies No known drug allergies Medications Name Sig Start Date Stop Date Status Note LastModified by Organization Details LastModified Time dbg - diclofena c 3% / baclofen2 % / gabapenti n 6% cream Apply 1-3 grams to the affected area 3-4 times daily (MULTIPL E SITES) active Not Available Not Available No t Available dbg k-10 diclo 3% / baclo 2% / romy 6% / delano 10% cream Apply 1-3 grams to the affected area 3-4 times daily (LEFT KNEE/ RIGHT SHOULDER ) 07/26 completed PRN Not Available Not Available Not Available multivita min tablet Take 1 tablet every day by oral route. active Not Available Not Available No t Available cyclobenz aprine 10 mg tablet Take 1 tablet 3 times a day by oral route as directed for 7 days. 08/11 completed Not Available Not Available Not Available amoxicill in 500 mg capsule TID 01/28 completed RECORDED 05/03/20 07 8:33AM BY LOREE RIVERA MD, MEDICATI ON AUTO-LANA CTIVATIO N; Not Available Not Available Not Available prednison e 20 mg tablet DAILY SEE NOTE 10/29 completed RECORDED 10/29/19 08 9:50PM BY AMY Villarreal NP, MEDICATI ON AUTO-LANA CTIVATIO N;ADJUST MENT OF INITIAL PRESCRIP TION Not Available Not Available Not Available Zithromax Z-Ryan 250 mg tablet QD 11/02 completed RECORDED 12/15/19 11 9:49AM BY BAIRON MURPHY, MEDICATI ON AUTO-LANA CTIVATIO N;2PO QD FOR 1 DAY, THEN 1 QD FOR 4 DAYS. Not Available Not Available Not Available hydrocort isone 2.5 % topical cream with perineal applicato r Apply 1 applicat ion twice a day by topical route as needed for 15 days. 2022 active Not Available Not Available Not Avai lable amoxicill in 875 mg tablet BID 09/02 completed RECORDED 02/03/20 10 11:23AM BY IVONNE REEDER MD, MEDICATI ON AUTO-LANA CTIVATIO N; Not Available Not Available Not Available citalopra m 20 mg tablet TAKE ONE TABLET BY MOUTH ONCE DAILY 2023 active Not Available Not Available Not Avai lable gentamici n 0.3 % eye drops PUT 1 DROP INTO RIGHT EYE EVERY 4 HOURS FOR 7 DAYS active Not Available Not Available No t Available benzonata te 100 mg capsule TID 12/15 completed RECORDED 12/16/19 09 10:25AM BY MARTHA CHEN MA, OFFICE VISIT; Not Available Not Available Not Available erythromy ryley 5 mg/gram (0.5 %) eye ointment [APPLY 1 CENTIMET ER RIBBON IN EYE (S) UP TO 6X/DAY X7-10 DAYS] 07/26 completed Not Available Not Available Not Available Cipro 500 mg tablet Take 1 tablet every 12 hours by oral route for 7 days. 2015 active Not Available Not Available Not Avai lable mupirocin 2 % topical ointment 04/04 completed Not Available Not Available Not Available gabapenti n 100 mg capsule Take 1 capsule 3 times a day by oral route for 30 days. 10/10 completed Not Available Not Available Not Available levofloxa ryley 500 mg tablet DAILY 11/03 completed RECORDED 11/04/19 08 11:35AM BY AMY Villarreal NP, MEDICATI ON AUTO-LANA CTIVATIO N; Not Available Not Available Not Available finasteri de 5 mg tablet Take 1 tablet every day by oral route. active 1/4 tab qd as per hair speciali st Not Available Not Available Not Available finasteri de 1 mg tablet TAKE 1 TABLET BY MOUTH DAILY 03/12 completed Not Available Not Available Not Available amoxicill in 875 mg-potass ium clavulana te 125 mg tablet TWO TIMES DAILY 11/16 completed RECORDED 01/28/20 14 2:46PM BY ARACELIS TRINH PA-C, MEDICATI ON AUTO-LANA CTIVATIO N; Not Available Not Available Not Available albuterol (refill) 90 mcg/actua tion aerosol inhaler FOUR TIMES DAILY, NEEDED 11/05 completed RECORDED 11/05/19 08 9:37AM BY AMY Villarreal NP, MEDICATI ON AUTO-LANA CTIVATIO N; Not Available Not Available Not Available Flonase QD 12/15 completed RECORDED 12/16/19 09 10:25AM BY MARTHA CHEN MA, OFFICE VISIT; Not Available Not Available Not Available Rogaine apply to scalp daily active Not Available Not Available No t Available turmeric 500 mg-black pepper extract 3 mg capsule Take 1 capsule every day by oral route. active Not Available Not Available No t Available Glucosami ne Chondroit in take 1 tablet po daily active Not Available Not Available No t Available Vitals Date Recorded Body height Body mass index (BMI) Body weight Heart rate Oxygen saturation Oxygen saturation in Arterial blood by Pulse oximetry Body temperature Systolic blood pressure Diastolic blood pressure Provider Name and Address Organization Details Last Updated DateTime 2 186.69 cm 25.8 kg/m2 40605.2 9 g 60 /min 98 % 98 % 98.96 [degF] 127 mm[Hg] 79 mm[Hg] Porsha Piper MA [facility] 2 14:17:35 Date Recorded Body height Body mass index (BMI) Body weight Heart rate Oxygen saturation Oxygen saturation in Arterial blood by Pulse oximetry Body temperature Systolic blood pressure Diastolic blood pressure Provider Name and Address Organization Details Last Updated DateTime 2 186.69 cm 25.1 kg/m2 53910.3 3 g 52 /min 98 % 98 % 98.24 [degF] 116 mm[Hg] 68 mm[Hg] Aracelis Hennessy MA [facility] 2 14:11:22 Date Recorded Body height Body mass index (BMI) Body weight Heart rate Oxygen saturation Oxygen saturation in Arterial blood by Pulse oximetry Body temperature Systolic blood pressure Diastolic blood pressure Provider Name and Address Organization Details Last Updated DateTime 2 186.69 cm 25.5 kg/m2 20685.1 g 51 /min 98 % 98 % 98.24 [degF] 113 mm[Hg] 69 mm[Hg] Aracelis Hennessy MA [facility] 2 10:57:16 Date Recorded Body height Body mass index (BMI) Body weight Heart rate Oxygen saturation Oxygen saturation in Arterial blood by Pulse oximetry Body temperature Systolic blood pressure Diastolic blood pressure Provider Name and Address Organization Details Last Updated DateTime 2 186.69 cm 25.6 kg/m2 77603.2 g 59 /min 97 % 97 % 98.1 [degF] 128 mm[Hg] 74 mm[Hg] Herminia Quan MA [facility] 2 15:34:04 Date Recorded Body height Body mass index (BMI) Body weight Heart rate Oxygen saturation Oxygen saturation in Arterial blood by Pulse oximetry Body temperature Systolic blood pressure Diastolic blood pressure Provider Name and Address Organization Details Last Updated DateTime 3 186.69 cm 25.8 kg/m2 81818.6 9 g 50 /min 99 % 99 % 98.3 [degF] 131 mm[Hg] 79 mm[Hg] Herminia Quan MA [facility] 3 14:15:13 Social History Question Answer Notes LastModified by Organizat ion Details LastModified Time Tobacco Smoking Status Never Smoker CARLOS A Anderson [facility] 03/10/2016 14:19:37 What Is Your Level Of Alcohol Consumption? Occasional Information not available 03/10/2016 Is Blood Transfusion Acceptable In An Emergency? No [email or web address] Information not available 03/10/2016 What Is Your Level Of Caffeine Consumption? Moderate Information not available 10/23/2022 How Much Tobacco Do You Chew? None Information not available 10/07/2020 Are You Currently Employed? Yes [email or web address] Information not available 03/10/2016 What Type Of Diet Are You Following? REGULAR [email or web address] Information not available 03/10/2016 Which Illicit Or Recreational Drugs Have You Used? None Information not available 10/07/2020 Do You Or Have You Ever Used E-cigarettes Or Vape? 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 0 N/a Information not available 10/07/2020 Live Alone Or With Others? With Others Information not available 07/06/2022 Do You Take Precautions To Prevent Distracted Driving? Yes [email or web address] Information not available 03/10/2016 How Often Do You Need To Have Someone Help You When You Read Instructions, Pamphlets, Or Other Written Material From Your Doctor Or Pharmacy? Sometimes [email or web address] Information not available 10/10/2021 Have You Served In The ? No [email or web address] Information not available 03/12/2017 Have You Or Anyone In Your Household Had Any Of The Following Symptoms In The Last 14 Days: Sore Throat, Cough, Chills, Body Aches For Unknown Reasons, Shortness Of Breath For Unknown Reasons, Loss Of Smell, Loss Of Taste, Fever At Or Greater Than 100 Degrees Fahrenheit? No Information not available 10/07/2020 Are You Or Anyone In Your Household A Health Care Provider Or Emergency Responder? No Information not available 10/07/2020 To The Best Of Your Knowledge Have You Been In Close Proximity To Any Individual Who Tested Positive For COVID-19? Yes [email or web address] Information not available 10/10/2021 *AWV ONLY* Are You Presently Prescribed Opioid Medication By PCP Or Specialist? If YES -Provider Assess The Benefit For Other, Non-opioid Pain Therapies Instead, Even If The Patient Does Not Have OUD But Is Possibly At Risk. No Information not available 10/07/2020 What Was The Date Of Your Most Recent Tobacco Screening? 10/23/2022 Information not available 10/23/2022 How Many Children Do You Have? 2 [email or web address] Information not available 03/10/2016 What Is Your Current Pack Years? 0 N/a Information not available 10/07/2020 Do You Use Protection During Sex? No Information not available 10/10/2021 Do You Use Your Seat Belt Or Car Seat Routinely? Yes [email or web address] Information not available 10/10/2021 Seat Belts Used Routinely Yes Information not available 07/06/2022 Are You Sexually Active? Yes Information not available 03/10/2016 Smoke Alarm In Home Yes Information not available 07/06/2022 Do You Have Smoke And Carbon Monoxide Detectors In Your Home? Yes [email or web address] Information not available 10/10/2021 At What Age Did You Start Smoking Tobacco? 0 Information not available 10/07/2020 Are You Passively Exposed To Smoke? No Information not available 10/07/2020 Do You Or Have You Ever Used Smokeless Tobacco? Never Used Smokeless Tobacco [email or web address] Information not available 10/10/2021 How Much Tobacco Do You Smoke? No Information not available 10/07/2020 Do You Use Any Illicit Or Recreational Drugs? No Information not available 07/06/2022 Do You Use Sunscreen Routinely? Yes [email or web address] Information not available 03/10/2016 How Many Years Have You Smoked Tobacco? 0 Information not available 10/07/2020 Do You Or Have You Ever Used Any Other Forms Of Tobacco Or Nicotine? No Information not available 07/06/2022 Sex: Unknown Functional Status Question Answer Note LastModified by Organizat ion Details LastModified Time Are you able to walk? [email or web address] Information not available 07/06/2022 Are you able to care for yourself? Yes [email or web address] Information not available 03/10/2016 What is your exercise level? Heavy plays hockey [email or web address] Information not available 08/05/2018 Mental Status None recorded. Family History Relationship Description Onset Age of this Age Resolved Age Notes LastModified by Organization Details LastModified Time Father Essential hypertension 60 asthma / high choles terol [email or web address] Not available 03/10/2016 16:37:27 Mother Well female adult 58 [email or web address] Not available 07/2016 16:37:27 Maternal Grandfather Myocardial infarction 35 [email or web address] Not available 16:37:27 Notes:No FH of breast or col on cancer or P Ca Medical History Condition Response Skin Problems Y Immunizations Vaccine Type Date Status Note Provider Nam e and Address Organization Details Recorded Time Td (adult) 3 completed Flory bar [facility] 04/05/2021 14:39:03 COVID-19, mRNA, LNP-S, PF, 30 mcg/0.3 mL dose 1 completed CARLOS A Escobar [facility] 12/26/2021 14:05:44 COVID-19, mRNA, LNP-S, PF, 30 mcg/0.3 mL dose 1 completed CARLOS A Escobar [facility] 12/26/2021 14:05:44 Influenza, split virus, quadrivalent , PF 8 cancelled patient objection Not Available [facility] 10/18/2019 02:22:16 Influenza, split virus, quadrivalent , PF 9 cancelled patient objection Not Available [facility] 10/18/2019 02:22:10 Tdap 2 completed CARLOS A Lara [facility] 10/10/2021 15:22:13 Tdap 2 completed [facility] 04/05/2021 14:39:03 Past Encounters Encounter ID Performer Location Encounter Start Date Encounter Closed Date Diagnosis/Indication Diagnosis SNOMED-CT Code Diagnosis ICD10 Code Diagnosis Note [id number] [facility] [address] [facility] [address] [place] [address] 05/03/2007 00:00:00 [id number] [facility] [place] [address],[place] [address] [place] [address] 05/03/2007 00:00:00 [id number] auto[facility] erce [address] [facility] [address],[place] [address] [place] [address] 05/03/2007 00:00:00 [id number] auto[facility] erce [address] [facility] [address],[place] [address] [place] [address] 09/18/2007 00:00:00 [id number] [facility] erce [address] [facility] [address],[place] [address] [place] [address] 09/18/2007 00:00:00 [id number] [facility] erce [address] [facility] [address],[place] [address] [place] [address] 09/18/2007 00:00:00 [id number] auto[facility] erce [address] [facility],[place] [address] [place] [address] 09/18/2007 00:00:00 [id number] auto[facility]Comm erce [address] [facility],[place] [address] [place] [address] 10/03/2007 00:00:00 [id number] auto[facility] erce [address] [facility] [address],[place] [address] [place] [address] 10/03/2007 00:00:00 [id number] auto[facility]Comm erce [address] [facility],[place] [address] [place] [address] 10/03/2007 00:00:00 [id number] auto[facility]Comm erce [address] [facility],[place] [address] [place] [address] 10/03/2007 00:00:00 [id number] autoEComm erce [address] [facility],[place] [address] [place] [address] 10/22/2007 00:00:00 [id number] auto[facility]Comm erce [address] [facility],[place] [address] [place] [address] 10/22/2007 00:00:00 [id number] auto[facility] erce [address] [facility] [address],[place] [address] [place] [address] 10/22/2007 00:00:00 [id number] autoEComm erce [address],[place] [address] [place] [address] 10/22/2007 00:00:00 [id number] autoEComm erce [address],[place] [address] [place] [address] 07/20/2008 00:00:00 [id number] autoEComm erce [address] [address] [place] [address] 07/20/2008 00:00:00 [id number] auto[facility] erce [address] [address] [place] [address] 07/20/2008 00:00:00 [id number] auto[facility]Comm erce [address] [facility] [address],[place] [address] [place] [address] 07/20/2008 00:00:00 [id number] autoEComm erce [address] [facility] [address],[place] [address] [place] [address] 12/15/2008 00:00:00 [id number] autoEComm erce [address] [facility] [address],[place] [address] [place] [address] 12/15/2008 00:00:00 [id number] auto[facility]Comm erce [address] [facility] [address],[place] [address] [place] [address] 12/15/2008 00:00:00 [id number] auto[facility]Comm erce [address] [facility] [address],[place] [address] [place] [address] 12/15/2008 00:00:00 [id number] autoEComm erce [address] [facility] [address],[place] [address] [place] [address] 06/10/2010 00:00:00 [id number] autoEComm erce [address] [facility] [address],[place] [address] [place] [address] 06/10/2010 00:00:00 [id number] autoEComm erce [address] [facility],[place] [address] [place] [address] 06/10/2010 00:00:00 [id number] autoEComm erce [address] [facility],[address] [address] [place]ão [place], CARLOS A [address] 10/28/2010 00:00:00 [id number] autoEComm erce [address] [facility],[address] [address] [place], CARLOS A [address] 11/06/2013 00:00:00 [id number] autoEComm erce [address] [facility],[address] [address] [place], CARL[place] A [address] 02/13/2014 00:00:00 [id number] autoEComm erce [address] [facility],[place] [address] [place], CARLOS A [address] 02/13/2014 00:00:00 [id number] Ivonne LundbergJosueRamon matos Main Office [address] [address] [place] [address] 01/27/2016 15:12:39 01/27/2016 16:12:42 Swelling of testicle 267591792 N50.8 Adult heal th examination 421576725 Z00.00 [id number] Ivonne LundbergJosueRamon matos Main Office [address] [address] [place] [address] 03/10/2016 14:09:37 03/10/2016 15:27:42 Adult health examination 770810441 Z00.00 Hyperlipidemia 85012144 E78.5 Swelling of testicle 438 694975 N50.8 Alopecia 55214994 L65.9 pt on finasterid e 1.25 mg from hair loss specialist /mirella Hemorrhoids 35871550 K64 .9 [id number] Ivonne LundbergJosueRamon matos Main Office [address] [address] [place] [address] 03/12/2017 15:08:52 03/12/2017 16:44:08 Adult health examination 868153657 Z00.00 Hyperlipidemia 79401130 E78.5 Alopecia 77554921 L65.9 on med from hair loss specialist /mirella Upper resp iratory infection 06217202 J06.9 [id number] Solomon Castellano MD Main Office [address] [address] [place] [address] 08/05/2018 15:21:25 08/05/2018 16:21:16 Adult health examination 751541110 Z00.00 Needs infl uenza immunization 131397816 Z23 Hyperlipidemia 69514446 E78.5 Alopecia 65971019 L65.9 on med from hair loss specialist /[place] [id number] KARIME Mcgee Main Office [address] [facility] [address] [place] [address] 04/04/2019 13:37:29 04/04/2019 14:28:39 Strain of trapezius muscle 084601256 S46.811A likely musculoske letal. recommend heat, massage, cyclobenza wong, stretching as tolerated. if sx do not improve we can refer to PT/ spine. 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 Please provide patient with contact info to schedule their appointmen tone Henry#[phone] email: [email or web address] Internal hemorrhoids 124 53132 K64.8 no sig straining or bleeding, but itches prn - no sig help c prepH - will give trial of steroid supp History of malignant basal cell neoplasm of skin 307177124 Z85.828 cont f/u c derm Male pattern alopecia 87 035458 L64.9 cont med as per hairspring inspector Insomnia 573555983 G47.0 0 trial of melatonin prn [id number] Edda Lew PA-C Main Office [address] [address] [place] [address] 08/01/2021 13:09:07 08/01/2021 13:54:14 Plantar wart of right foot 4418786604 8987277 B07.0 had seen derm last year - partially frozen off - will get re-eval -- cannot see [facility] - they do not accept his ins. Bilateral hip joint pain 3063200576 8144504 M25.551 see below Chronic low back pain 27 4626893 M54.50 see above - will check xrays and get pmr eval Lumbosacra l radiculitis 88347853 M54.17 trial of gbn - enrique at hs - start c 2 tabs hs, may be all you need Lipoma of skin 511006863 D17.30 has had others excised in past - has a few new lipomas - one enrique is bothering him in RLQ - will get back to gen sx [id number] Edda Lew PA-C Main Office [address] [address] [place] [address] 10/10/2021 14:10:07 10/10/2021 15:22:24 Adult health examination 618029930 Z00.00 Influenza vaccination declined 215241053 Z28.21 Chronic low back pain 27 0503137 M54.50 seen by pmr - had lumbar mri - unsure of results, rec cont f/u -- no sig help c gbn cont turmeric & gluc / chond as dir Bilateral hip joint pain 9732362255 6075301 M25.551 stable, consider second opinion if worse Hyperlipidemia 00062847 E78.5 Male pattern alopecia 87 375851 L64.9 cont med as per hairspring inspector Hepatitis C screening 41 4257946 Z11.59 Administra tion of diphtheria, pertussis, and tetanus vaccine 807193699 Z23 [id number] Edda Lew PA-C Main Office [address] [address] [place] [address] 12/26/2021 13:46:25 12/26/2021 14:51:04 Major depressive disorder 186351070 F32.1 moderate on phq, mild on león - trial c celexa, encouraged pt to call the mental health # on the back of his ins card [id number] Edda Lew PA-C Main Office [address] [place] [address] 07/06/2022 10:46:34 07/06/2022 11:56:09 Hordeolum externum of lower eyelid of left eye 8290505626 82579 H00.015 ? Chalazia vs hordeolum - trial c abx ointment - if no better, then rec f/u c eye md Hyperlipidemia 73016959 E78.5 Pain of le ft knee joint 4672314507 41554 M25.562 seen by ortho - reviewed note - cont hep, cont f/u c ortho - ? may need mri Lipoma of skin 499015413 D17.30 has had others excised in past - has a few new lipomas - one enrique is bothering him in RLQ - will get back to gen sx 9. - pt missed eval several months ago - re-opened order and forwarded to research support specialist Hepatitis C screening 41 2794447 Z11.59 [id number] Grace Lew PA-C Main Office [address] [place] [address] 07/26/2022 15:14:43 07/26/2022 16:09:04 Dysuria 32660243 R30.0 [id number] Edda Lew PA-C Main Office [address] [address] 10/23/2022 14:02:42 10/23/2022 15:00:27 Adult health examination 218216889 Z00.00 Screening for malignant neoplasm of colon 896208256 Z12.11 encouraged pt to call his insurance company to see if colonoscop y is covered for age > 45 History of malignant basal cell neoplasm of skin 441084143 Z85.828 cont f/u c derm Lipoma 52708632 D17.9 multiple on trunk, legs Major depr essive disorder 042953114 F32.1 moderate on phq, mild on león - trial c celexa, encouraged pt to call the mental health # on the back of his ins card 1.23 - better lately, cont med as dir, no see therapist Internal hemorrhoids 904 46140 K64.8 no sig straining or bleeding, but itches prn - no sig help c prepH - will give trial of steroid supp Health Concerns Section Related Observation LastModified by Organization Detai ls LastModified Time None Recorded Concern Status LastModified by Organization Details LastModified Time None Recorded Advance Directives Directive None Recorded Payers Encounter Date Sequence Insurance Name Policy Number Policy Sultana Covered Member ID Sultana Member ID Guarantor Name 10/10/2021 1 [place] [id number] [place]am [place] 12/26/2021 1 [place] Fam [place] [id number] Fam [place] 07/06/2022 1 [place] Fam Kenny [id number] [employer] [place] 07/26/2022 1 [place] Fam Kenny [id number] [place]am [place] 10/23/2022 1 [place] Fam Kenny [id number] Fam Kenny Notes Date Note Type Note Provider Name and Address Organization Details Recorded Time 10/10/2021 text/html here for annual pe. Edda Lew PA-C [address] [address], [place], [address], [facility] 10/10/2021 15:17:36 12/26/2021 text/html Anxiety/Depressi on Reported bypatient.Quality: mood worse;increased anxiety; no panic attacks Severity:denies suicidal ideations Context:major life stressors;family problems Associated Symptoms:denies homicidal ideations Edda Lew PA-C [address] [address], [place], [address], [facility] 12/26/2021 14:48:59 07/06/2022 text/html 42yo male presen ts with left eye pain and pruritis for 5 weeks after having a piece of wood hit his eye. States the pain and itchiness comes and goes. He noticed a small amount of pus come out 2 times. Tired to vince it and nothing happened and make it worse. Has tried warm compresses with no relief. Has tried neosporin in his eye as well and no improvement or worsening. Slight increases in tear production on left side. No worsening vision in left eye. No pain in right eye. No fevers. Normal blinking. Edda Lew PA-C [address] [address], [place], [address], [facility] [facility] [place] 07/06/2022 12:54:40 07/26/2022 text/html 42 year old male c/o burning on urination for past 4 days. No abdominal pressure/pain, frequency , urinary blood , fever, chills, penile discharge. Pt. reports some irritation on the urethra. U/a is normal. Pt. denies high risk sexual behavior. Grace Lew PA-C [id number] [address], [place], [id number], [facility] [place] 07/26/2022 16:48:27 10/23/2022 text/html here for annual pe. Edda Lew PA-C [address] [address], [place], [id number], [facility] [place] 10/23/2022 15:04:47
--- OUTSIDE RECORDS SUMMARY | 2024-11-18 10:01 | XMS_ITS | Encounter Summary ---
Author Organization [employer] Address [address] [facility] 7t [place] [address] Care Team Providers Care Air Chief Marshal Name Role Phone Unavailable Primary Care Provider Unavailabl e Encounter Details Date Type Department Care Team (Latest Contact Info) Description 07/25/2022 Abstract [facility] CONVERSIONS Dental, Provider, DDS Social History Tobacco Use Types Packs/Day Years Used Date Smoking Tobacco: Never Assessed Sex and Gender Information Value Date Recorded Sex Assigned at Male 07/31/2022 10:40 AM EDT Legal Sex Male 10:40 AM EDT Gender Identity Male 07/31/2022 10:40 AM EDT Sexual Orientation Straight 07/31/2022 10 :40 AM EDT documented as of this encounter Plan of Treatment Not on file documented as of this encounter Visit Diagnoses Not on filedocumented in this encounter
[2024-11-19 08:17] LABS: HBS Num1 1.17 mIU/mL (0-7.99); HBsAGNum1 0.34 S/CO (0.00-0.99); Hepatitis A Antibody IgM 0.17 Index (0-0.79); Hepatitis B Core Antibody Nonreactive (Nonreactive); Hepatitis B Surface Antigen Negative (Negative); ~Hepatitis A Antibody IgM Nonreactive (Nonreactive); ~Hepatitis B Surface Antibody NONREACTIVE (Nonreactive); ~Hepatitis C Antibody Nonreactive (Nonreactive)
[2024-11-19 08:27] LABS: Hepatitis A Antibody IgM 0.16 Index (0-0.79); ~Hepatitis A Antibody IgM Nonreactive (Nonreactive)
== END 2024-11-18 09:19 | disposition home or self-care (01) ==
LOC: HO.WFDLDS 09:18
PROVIDERS: Visit Provider Physician Assistant Medical
DX: R74.8 Abnormal levels of other serum enzymes (principal)
CPT/HCPCS: 36415; 86704; 86706; 86709; 86803; 87340

== ENCOUNTER 2024-12-18 08:34 | Outpatient (REF) | payer OTHER, SELFPAY ==
[2024-12-18 11:58] LABS: Alanine Aminotransferase 23 U/L (0-40); Aspartate Amino Transferase 52 U/L (5-37); Cholesterol 169 mg/dL (<200); HDL Cholesterol 43 mg/dL (>40); LDL Cholesterol Calculated 115 mg/dL (<100); Triglycerides 58 mg/dL (<150)
== END 2024-12-18 08:35 | disposition home or self-care (01) ==
LOC: HO.WFDLDS 08:34
PROVIDERS: Visit Provider Physician Assistant Medical
DX: R79.89 Other specified abnormal findings of blood chemistry (principal); K76.0 Fatty (change of) liver, not elsewhere classified; R74.8 Abnormal levels of other serum enzymes; E78.5 Hyperlipidemia, unspecified
CPT/HCPCS: 36415; 80061; 84450; 84460

== ENCOUNTER → 2024-12-25 15:42 | Outpatient (BNVA) | payer OTHER, SELFPAY | PROVIDERS: PCP Physician Assistant Medical; Visit Provider Physician Assistant Medical ==

== ENCOUNTER 2024-12-29 09:34 | Outpatient (AMB) | payer OTHER, SELFPAY ==
--- NOTE | 2024-12-29 09:39 | MHC.OFFVIS ---
Vital Signs 12/29/24 09:44 Height 6 ft 1 in Weight 187 lb BMI 24.7 BP 107/58 L Blood Pressure Location Lt brachial Position Sitting Pulse 46 L Pulse Oximetry (%) 99 Oxygen Delivery Method Room Air Intake Visit Reasons: Abnormal levels of other serum enzymes Intake Note: Patient new consult for Abnormal levels of other serum enzymes Patient denies any GI issues for today. Patient pulse is low 46. Email Production Specialist Required: No Accompanied by: Self / Same As Patient Allergies No Known Allergies Allergy (Verified 12/29/24 09:43) HPI HPI Abnormal levels of other serum enzymes: Details: 44 years old male with past medical history of transaminitis, and anxiety, no other significant medical history is here today for initial consultation. Patient was found to have elevated liver enzymes and sent to us for further evaluation. Patient had ultrasound done in November that showed possible hepatic steatosis: IMPRESSION: 1. Mildly coarsened and increased hepatic echogenicity, suspicious for steatosis and/or hepatocellular disease. Smooth hepatic contour. Normal hepatic size. No focal lesion. 2. Liver elastography: Measurements are suggestive of compensated advanced chronic liver disease but need further test for confirmation. Patient denies any abdominal pain or discomfort. In general patient reports to be feeling fairly well. He is eating well. He was drinking alcohol in the past, however now he is not. He considers himself healthy, exercises regularly. Patient denies any GI concerning symptoms. He is due to go for colonoscopy which she will discuss next visit. Planning to do workup [facility] Medical History (Updated 11/07/24 @ 14:36 by BAIRON Portillo) Hepatic steatosis Hyperlipidemia Liver enzyme elevation Torn ACL Basal cell carcinoma Lipoma Surgical History H/O vasectomy Family History Father High blood pressure High cholesterol Substance abuse in family Mental health disorder Asthma Mother Hx of bilateral hip replacements Substance abuse in family Maternal Grandfather Cardiovascular disease Social History Household Members: Family Both parents involved: No Caregiver staying overnight: No Housing: House Are you a primary career coach to a significant other at home: No Do you presently have visiting nurse or other home services: No 75 years or older and lives alone: No Alcohol intake: current Alcohol intake frequency: a few times a week Alcohol type: beer and other Comment: Weekends Patient Tobacco Use Status: Never used Tobacco e-Cigarette/Vaping Use: Never Used Agree to transfusion: No service: No Current occupational status: employed 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 Cognitive needs: No Hearing needs: No Vision needs: No Review of Systems Const Denies weight gain and Denies weight loss ENT Reports no additional complaints, Denies dysphagia and Denies odynophagia Card Reports no additional complaints Resp Reports no additional complaints GI Denies abdominal pain, Denies belching, Denies melena, Denies bloating, Denies change in bowel habits, Denies dysphagia, Denies excessive flatus, Denies dyspepsia, Denies heartburn, Denies diarrhea, Denies loose stools, Denies nausea, Denies odynophagia and Denies vomiting Reports no additional complaints Musc Reports no additional complaints Neuro Reports no additional complaints Psych Reports no additional complaints Endo Reports no additional complaints Physical Exam Vital Signs: Last Vital Signs Pulse 46 L 12/29/24 09:44 BP 107/58 L 12/29/24 09:44 Pulse Ox 99 12/29/24 09:44 Oxygen Delivery Method Room Air 12/29/24 09:44 BMI result Body Mass Index 24.7 Results Reviewed Results Reviewed: Laboratory Tests 10/08/24 11/18/24 12/18/24 10:28 09:19 08:35 AST 50 H 52 H ALT 27 23 Hepatitis A IgM Ab Nonreactive Hep Bs Antigen Negative Hep Bs Antibody NONREACTIVE Hep B Core Total Ab Nonreactive Hepatitis C Ab (EIA) Nonreactive Assessment & Plan Assessment & Plan (1) Hepatic steatosis: Code(s): K76.0 - Fatty (change of) liver, not elsewhere classified Category: Medical (2) Liver enzyme elevation: Code(s): R74.8 - Abnormal levels of other serum enzymes Category: Medical Plan Will send patient to rule out any a immune disorders that might contribute to patient's elevation in liver enzyme. Patient was advised to avoid alcohol, follow low fat, low salt, low carb and high-protein diet. Follow-up in 3 months, sooner if needed basis. Patient is agreeable to this plan and verbalizes understanding of instructions. He was given the opportunity to ask questions all questions answered. Will discuss going for colonoscopy next visit. Thank you for allowing me to participate in his care Orders: Orders Smooth Muscle Antibody 12/29/24 R79.89 - Other specified abnormal findings of blood chemistry Alpha Fetoprotein 12/29/24 R79.89 - Other specified abnormal findings of blood chemistry Prothrombin Time INR 12/29/24 R74.8 - Abnormal levels of other serum enzymes Ceruloplasmin 12/29/24 R79.89 - Other specified abnormal findings of blood chemistry Liver Fibrosis Pnl 12/29/24 K76.0 - Fatty (change of) liver, not elsewhere classified Mitochondrial Antibody 12/29/24 R79.89 - Other specified abnormal findings of blood chemistry Complete Blood Count no Diff 12/29/24 K21.9 - Gastro-esophageal reflux disease without esophagitis Transglutaminase IgA 12/29/24 R10.9 - Unspecified abdominal pain Ferritin 12/29/24 R74.8 - Abnormal levels of other serum enzymes Coding Level of Care Code New Pt Level 3 (61514) Diagnoses Hepatic steatosis K76.0 Liver enzyme elevation R74.8 Time Spent (min) 40 Comment 30 minutes spent with patient and additional 10 minutes spent reviewing his records
[2024-12-29 09:44] VITALS: BP 107/58; PULSE 46; O2SAT 99; BMI 24.7
== END 2024-12-29 10:14 | disposition home or self-care (01) ==
PROVIDERS: PCP Physician Assistant Medical; Visit Provider Nurse Practitioner Family
DX: K76.0 Fatty (change of) liver, not elsewhere classified (principal); R74.8 Abnormal levels of other serum enzymes
CPT/HCPCS: 99203

== ENCOUNTER 2024-12-29 09:34 | Outpatient (REF) | payer OTHER, SELFPAY ==
[2024-12-29 11:15] LABS: Hematocrit 40.9 % (42.0-52.0); Hemoglobin 13.8 g/dl (14.0-18.0); Mean Corpuscular HGB Conc 33.7 g/dl (31.0-36.0); Mean Corpuscular Hemoglobin 29.4 pg (27.0-33.0); Mean Corpuscular Volume 87.2 fL (80.0-98.0); Mean Platelet Volume 11.1 fL (9.4-12.4); Platelet Count 214 X10*3/uL (160-400); Red Blood Count 4.69 X10*6/uL (4.60-5.80); White Blood Count 4.9 X10*3/uL (4.8-10.8)
[2024-12-29 11:25] LABS: INTERNATIONAL NORM RATIO 1.1 (0.9-1.1); Prothrombin Time 12.9 SEC (10.9-12.4)
--- OUTSIDE RECORDS SUMMARY | 2024-12-29 11:33 | XMS_ITS | Encounter Summary ---
Author Organization [employer] Address [address] [facility] 7t [place] [address] Care Team Providers Care Pigment Processor Name Role Phone Unavailable Primary Care Provider Unavailabl e Encounter Details Date Type Department Care Team (Latest Contact Info) Description 07/25/2022 Abstract [facility] CONVERSIONS Dental, Provider, DDS Social History Tobacco [...]
--- OUTSIDE RECORDS SUMMARY | 2024-12-29 11:33 | XMS_ITS | Clinical Summary ---
Author Organization [employer] Address [address] [place] [address] 7[address] [place] [address] Care Team Providers Care Aviation Survival Technician Name Role Phone Unavailable Primary Care Provider [...] 01/17/1996 Hepatitis B Vaccines (1 of - 19+ 3-dose series) 1997 COVID-19 Vaccine (2023-2 5 [...] patient's age to complete this topic Insurance [facility] MEDICAID STAND ADULT
[2024-12-29 12:21] LABS: Ferritin 137 ng/mL (20-250)
[2024-12-30 20:59] LABS: Ceruloplasmin 26 mg/dL (14-30)
[2024-12-30 23:08] LABS: Transglutaminase IgA <1.0 U/mL
[2025-01-01 07:49] LABS: Alpha Fetoprotein 5.4 ng/mL (<6.1)
[2025-01-01 13:38] LABS: Mitochondrial Antibodies NEGATIVE (NEGATIVE)
[2025-01-03 16:14] LABS: Smooth Muscle Antibody <20 U (<20)
[2025-01-05 14:14] LABS: FIB-ALT 17 U/L (9-46); FIB-Alpha-2-Macroglobulin 199 mg/dL (106-279); FIB-Apolipoprotein A1 139 mg/dL (94-176); FIB-GGT 14 U/L (3-95); FIB-Haptoglobin 74 mg/dL (43-212); FIB-Total Bilirubin 0.5 mg/dL (0.2-1.2); Liver Fibrosis Score 0.22; Liver Fibrosis Stage F0-F1; Nec Inflam Act Grade A0; Nec Inflam Act Score 0.05
== END 2024-12-29 09:35 | disposition home or self-care (01) ==
LOC: HO.LAB 09:34
PROVIDERS: PCP Physician Assistant Medical; Visit Provider Nurse Practitioner Family
DX: R79.89 Other specified abnormal findings of blood chemistry (principal); R74.8 Abnormal levels of other serum enzymes; K76.0 Fatty (change of) liver, not elsewhere classified; K21.9 Gastro-esophageal reflux disease without esophagitis; R10.9 Unspecified abdominal pain
CPT/HCPCS: 36415; 81596; 82105; 82390; 82728; 85027; 85610; 86015; 86364; 86381; 99202

== ENCOUNTER 2025-03-25 09:31 | Outpatient (REF) | payer OTHER, SELFPAY ==
--- OUTSIDE RECORDS SUMMARY | 2025-03-25 10:35 | XMS_ITS | Encounter Summary ---
Author Organization [employer] Address [address] [facility] [address] [place] [address] Care Team Providers Care Gas Plant Technician Name Role Phone Unavailable Primary Care Provider Unavailabl e Encounter Details Date Type Department Care Team (Latest Contact Info) Description 07/25/2022 Abstract [facility] CONVERSIONS Dental, Provider, DDS Social History [...]
[2025-03-25 14:49] LABS: Alanine Aminotransferase 31 U/L (0-40); Aspartate Amino Transferase 59 U/L (5-37); Cholesterol 208 mg/dL (<200); HDL Cholesterol 51 mg/dL (>40); LDL Cholesterol Calculated 140 mg/dL (<100); Triglycerides 88 mg/dL (<150)
== END 2025-03-25 09:32 | disposition home or self-care (01) ==
LOC: HO.WFDLDS 09:31
PROVIDERS: Visit Provider Physician Assistant Medical
DX: R79.89 Other specified abnormal findings of blood chemistry (principal); R74.8 Abnormal levels of other serum enzymes; K76.0 Fatty (change of) liver, not elsewhere classified; E78.00 Pure hypercholesterolemia, unspecified; E78.5 Hyperlipidemia, unspecified
CPT/HCPCS: 36415; 80061; 84450; 84460

== ENCOUNTER 2025-04-06 13:32 | Outpatient (AMB) | payer OTHER, SELFPAY ==
--- NOTE | 2025-04-06 13:35 | MHC.OFFVIS ---
Vital Signs 04/06/25 13:40 Height 6 ft 1 in Weight 192 lb BMI 25.3 BP 122/74 Blood Pressure Location Rt brachial Position Sitting Pulse 52 Pulse Source Pulse Oximeter Pulse Oximetry (%) 97 Oxygen Delivery Method Room Air Intake Visit Reasons: 3m Intake Note: EST PATIENT for abn LFTs mgmt. Labs done. CC; Pt denies any GI sx, concerns, or changes since last visit. Outside Machinist Required: No Accompanied by: Self / Same As Patient Allergies No Known Allergies Allergy (Verified 12/29/24 09:43) HPI HPI 3m: Details: LAST VISIT Hepatic steatosis Liver enzyme elevation Plan Will send patient to rule out any a immune disorders that might contribute to patient's elevation in liver enzyme. Patient was advised to avoid alcohol, follow low fat, low salt, low carb and high-protein diet. Follow-up in 3 months, sooner if needed basis. Patient is agreeable to this plan and verbalizes understanding of instructions. He was given the opportunity to ask questions all questions answered. Will discuss going for colonoscopy next visit. ? Thank you for allowing me to participate in his care Orders Smooth Muscle Antibody 12/29/24 R79.89 Alpha Fetoprotein 12/29/24 R79.89 Prothrombin Time INR 12/29/24 R74.8 Ceruloplasmin 12/29/24 R79.89 Liver Fibrosis Pnl 12/29/24 K76.0 Mitochondrial Antibody 12/29/24 R79.89 Complete Blood Count no Diff 12/29/24 K21.9 Transglutaminase IgA 12/29/24 R10.9 Ferritin 12/29/24 R74.8 TODAY'S VISIT Patient is here today for follow-up and to discuss lab results. Patient will also be sent for colonoscopy. Never had colonoscopy in the past. No family history of CRC. Lab results discussed with patient. Patient continues to have mildly elevated AST. Liver fibrosis F0/F1. Patient reports that he does not drink alcohol much only on occasions or weekends. Fairly well managed diet with may be protein. Patient denies GI symptoms. Here to discuss management of his fatty liver disease. Patient denies any issues with anesthesia in the past. No history of sleep apnea. Not on any anticoagulation medication. Patient denies any cardiac or respiratory symptoms [facility] Medical History Hepatic steatosis Hyperlipidemia Liver enzyme elevation Torn ACL Basal cell carcinoma Lipoma Surgical History H/O vasectomy Family History Father High blood pressure High cholesterol Substance abuse in family Mental health disorder Asthma Mother Hx of bilateral hip replacements Substance abuse in family Maternal Grandfather Cardiovascular disease Social History Household Members: Family Both parents involved: No Caregiver staying overnight: No Housing: House Are you a primary district manager primary care sales to a significant other at home: No Do you presently have visiting nurse or other home services: No 75 years or older and lives alone: No Alcohol intake: current Alcohol intake frequency: a few times a week Alcohol type: beer and other Comment: Weekends Patient Tobacco Use Status: Never used Tobacco e-Cigarette/Vaping Use: Never Used Agree to transfusion: No service: No Current occupational status: employed 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 Cognitive needs: No Hearing needs: No Vision needs: No Review of Systems Const Denies weight gain and Denies weight loss ENT Reports no additional complaints, Denies dysphagia and Denies odynophagia Card Reports no additional complaints Resp Reports no additional complaints GI Denies abdominal pain, Denies belching, Denies melena, Denies bloating, Denies change in bowel habits, Denies dysphagia, Denies excessive flatus, Denies dyspepsia, Denies heartburn, Denies diarrhea, Denies loose stools, Denies nausea, Denies odynophagia and Denies vomiting Reports no additional complaints Musc Reports no additional complaints Neuro Reports no additional complaints Psych Reports no additional complaints Endo Reports no additional complaints Physical Exam Vital Signs: Last Vital Signs Pulse 52 04/06/25 13:40 BP 122/74 04/06/25 13:40 Pulse Ox 97 04/06/25 13:40 Oxygen Delivery Method Room Air 04/06/25 13:40 BMI result Body Mass Index 25.3 Const General: healthy appearing, no acute distress and well developed Nutritional Appearance: well nourished Orientation/consciousness: patient oriented x3 Resp Effort & Inspection: normal respiratory effort, able to speak in complete sentences, no tracheal deviation and symmetric chest movement Auscultation: clear to auscultation bilaterally Cardio Rate: regular rate GI Inspection: Yes normal to inspection and No distended Palpation (GI): Soft to palpation, not firm, nontender and No hepatosplenomegaly present Auscultation: normal bowel sounds General: Yes no CVA tenderness Back/Spine/Pelvis Back: no CVA tenderness Skin General skin exam: elasticity normal, turgor normal and dry skin Neuro General: patient oriented x3 Psych Appearance: grossly normal Mental Status: mental status grossly normal Results Reviewed Results Reviewed: Laboratory Tests 11/18/24 12/18/24 12/29/24 09:19 08:35 10:36 Ferritin 137 AST 52 H Liver GGT 14 Liver Total Bilirubin 0.5 Liver Fibrosis Stage F0-F1 Ceruloplasmin 26 Alpha Fetoprotein 5.4 Anti-Mitochondrial Ab NEGATIVE Anti-Smooth Muscle Ab <20 Tiss Transglutamin IgA <1.0 Hepatitis A IgM Ab Nonreactive Hep Bs Antigen Negative Hep Bs Antibody NONREACTIVE Hep B Core Total Ab Nonreactive Hepatitis C Ab (EIA) Nonreactive 03/25/25 09:33 Ferritin AST 59 H Liver GGT Liver Total Bilirubin Liver Fibrosis Stage Ceruloplasmin Alpha Fetoprotein Anti-Mitochondrial Ab Anti-Smooth Muscle Ab Tiss Transglutamin IgA Hepatitis A IgM Ab Hep Bs Antigen Hep Bs Antibody Hep B Core Total Ab Hepatitis C Ab (EIA) Assessment & Plan Assessment & Plan (1) Liver enzyme elevation: Code(s): R74.8 - Abnormal levels of other serum enzymes Category: Medical (2) Hepatic steatosis: Code(s): K76.0 - Fatty (change of) liver, not elsewhere classified Category: Medical (3) Screen for colon cancer: Code(s): Z12.11 - Encounter for screening for malignant neoplasm of colon Plan Continue low-fat, low carb, low-salt and high-protein diet. Avoid alcohol. We will repeat lab work before his next appointment as well as ultrasound with liver elastography. Patient will be sent for colonoscopy as he never had one before. No issues with anesthesia in the past. No history of sleep apnea. Not on any anticoagulation medication. What to expect before during and after procedure discussed with patient. Stressed the importance of good bowel prep and clear liquid diet day before procedure. Patient is agreeable to current plan of care and verbalizes understanding of instructions. He was given the opportunity to ask questions and all questions answered. Thank you for allowing me to participate in his care for Orders: Orders Liver Panel Today R74.01 - Elevation of levels of liver transaminase levels US abdomen johnson w elastography Today K76.0 - Fatty (change of) liver, not elsewhere classified Medications: New bisacodyl (Dulcolax (bisacodyl)) take 4 tabs at noon the day before your colonoscopy 20 mg (4 x 5 mg) PO ONCE 4 tabs 0RF constipation 1 day Z12.11 - Encounter for screening for malignant neoplasm of colon polyethylene glycol 3350 (Miralax) As directed by gastroenterology department at [facility] 238 grams PO ONCE 238 grams 0RF Z12.11 - Encounter for screening for malignant neoplasm of colon Coding Level of Care Code Est Pt Level 3 (34397) Diagnoses Liver enzyme elevation R74.8 Hepatic steatosis K76.0 Screen for colon cancer Z12.11 Time Spent (min) 35 Comment 25 minutes spent with patient and additional 10 minutes spent reviewing his records
[2025-04-06 13:40] VITALS: BP 122/74; PULSE 52; O2SAT 97; BMI 25.3
--- OUTSIDE RECORDS SUMMARY | 2025-04-06 13:59 | XMS_ITS | Encounter Summary ---
Author Organization [employer] Address [address] [facility] [facility] [address] [place] [address] Care Team Providers Care Cut In Station Operator Name Role Phone Unavailable Primary Care Provider Unavailabl e Encounter Details Date Type Department Care Team (Latest Contact Info) Description 07/25/2022 Abstract [facility] CONVERSIONS Dental, Provider, DDS Social History Tobacco [...]
== END 2025-04-06 14:50 | disposition home or self-care (01) ==
PROVIDERS: PCP Physician Assistant Medical; Visit Provider Nurse Practitioner Family
DX: R74.8 Abnormal levels of other serum enzymes (principal); K76.0 Fatty (change of) liver, not elsewhere classified
CPT/HCPCS: 99213

== ENCOUNTER → 2025-04-06 13:32 | Outpatient (BNVA) | payer OTHER, SELFPAY | PROVIDERS: PCP Physician Assistant Medical; Visit Provider Nurse Practitioner Family | DX: Z12.11 Encounter for screening for malignant neoplasm of colon (principal); K76.0 Fatty (change of) liver, not elsewhere classified; R74.8 Abnormal levels of other serum enzymes | CPT/HCPCS: 99212 ==

== ENCOUNTER 2025-06-02 15:37 | Outpatient (REF) | payer OTHER, SELFPAY ==
--- OUTSIDE RECORDS SUMMARY | 2025-06-02 16:37 | XMS_ITS | Clinical Summary ---
Author Organization [facility] Address [address] [place] [phone] Phone Care Team Providers Care Recreational Aide Name Role Phone Stuart Coyle MD Primary [...] topic Medical Devices Not on file Insurance [facility] ANDRES NSPG PCP [facility] NON NSPG PCP [facility] [address] NON NSPG PCP [facility] CONNECTORCARE [employer] NON NSPG PCP [employer] NON NSPG PCP S[employer] NON NSPG PCP [employer] Care Teams Recreational Aide Relationship Specialty Start Date End Date Stuart Coyle MD [address] [place] [address] PCP - General Family Medicine 11/03/23 Additional Source Comments The information contained in this document represents components of the legal health record. It is not the complete legal health record.[facility]
--- OUTSIDE RECORDS SUMMARY | 2025-06-02 16:37 | XMS_ITS | Encounter Summary ---
Author Organization [employer] Address [address] [facility] [address] [place] [address] Care Team Providers Care Head Esthetician Name Role Phone Unavailable Primary Care Provider Unavailabl e Encounter Details Date Type Department Care Team (Latest Contact Info) Description 07/25/[address] [facility] CONVERSIONS Dental, Provider, DDS Social [...]
--- OUTSIDE RECORDS SUMMARY | 2025-06-02 16:37 | XMS_ITS | Clinical Summary ---
Author Organization [employer] Address [address] [facility] [address] [place] [address] Care Team Providers Care Machine Joiner Cementer Name Role Phone Unavailable Primary Care Provider [...] Panel 1978 SDOH Screening 1978 Sigmoidoscopy 1978 Disability Screening 1978 Alcohol/Substance Use Screening 1990 Tobacco Screening 1990 Family Planning (PISQ) 1993 Hepatitis C Screening 01/17/1996 Hepatitis B Vaccines (1 of - + 3-dose series) 1997 COVID-19 Vaccine ( - 2023-2 5 season) 2024 03/24/2021, 02/12/2021 Influenza Vaccine (#1) 2025 Zoster Vaccines (1 of 2) 01/17/2028 DTaP/Tdap/Td [...] patient's age to complete this topic Meningococcal B Vaccine Aged Out No l onger eligible based on patient's age to complete this topic Meningococcal Vaccine Aged Out No lakhwinder erin eligible based on patient's age to complete this topic Pneumococcal Vaccine: Pediatrics (0 to 5 Years) and At-Risk Patients (6 to 49) Years Aged Out No longer eligible b ased on patient's age to complete this topic RSV under 20 months Aged Out No longe r eligible based on patient's age to complete this topic Rotavirus Vaccines Aged Out No longer eligible based on patient's age to complete this topic Insurance [facility] MEDICAID STAND ADULT
[2025-06-02 18:13] LABS: Alanine Aminotransferase 34 U/L (0-40); Albumin Level 4.6 g/dL (3.5-5.0); Alkaline Phosphatase 73 U/L (39-117); Aspartate Amino Transferase 53 U/L (5-37); Total Protein 6.8 g/dL (6.5-8.0)
== END 2025-06-02 15:38 | disposition home or self-care (01) ==
LOC: HO.WFDLDS 15:37
PROVIDERS: Visit Provider Nurse Practitioner Family
DX: R74.01 Elevation of levels of liver transaminase levels (principal)
CPT/HCPCS: 36415; 80076

== ENCOUNTER 2025-06-08 16:03 | Outpatient (AMB) | payer OTHER, SELFPAY ==
--- NOTE | 2025-06-08 16:10 | MHC.PC.OV ---
Vital Signs 06/08/25 16:18 Height 6 ft 1 in Weight 187 lb 6 oz BMI 24.7 BP 106/64 Blood Pressure Location Lt brachial Position Sitting Respiration 14 Pulse 60 Pulse Source Pulse Oximeter Temp 98.4 F Temp Source Temporal Artery Scan Pulse Oximetry (%) 95 Oxygen Delivery Method Room Air Intake Visit Reasons: cpe with follow up labs Intake Note: Fam presents in the office today for his annual physical and a review of his lab results. Allergies No Known Allergies Allergy (Verified 06/08/25 16:11) Medication List - Last Reconciled 06/09/25 by BAIRON Portillo bisacodyl (Dulcolax (bisacodyl)) 20 mg (4 x 5 mg) PO ONCE 1 day citalopram 20 mg PO DAILY 90 days finasteride 5 mg PO DAILY multivitamin 1 tab PO DAILY polyethylene glycol 3350 (Miralax) 238 grams PO ONCE Tobacco use date assessed: 06/08/25 Dental Screening Dental Screen Date: 06/08/25 Did you have a dental visit in the last 12 months?: Yes Did you have a dental problem in the last 6 months where you did not have access to dental care?: No Was dental information given to patient?: Patient has dentist HPI HPI Comments History of Present Illness Details This is a 45-year-old male with a past medical history of hyperlipidemia, anxiety and hepatic steatosis presenting for a physical. He has a colonoscopy scheduled next week. He is followed by Gastroenterology for hepatic steatosis. He has decreased processed foods. He does not drink alcohol except socially. He exercises regularly. He has a repeat liver ultrasound scheduled next week. He requests to see an medicaid eligibility specialist. He endorses pain in his hips. The left is worse than the right. Sometimes the left hip gives out. This has been going on a couple of months. Denies trauma, but he is very active. He mountain bikes. There is no numbness or tingling in his legs. Denies back pain. He has been managing hyperlipidemia with lifestyle modification. He is a nonsmoker. PHQ-9 is mildly positive, but he reports Celexa is working well with the current dosage. He was recently seen by Dermatology for an annual skin exam. There were no concerning lesions. ROS: Constitutional: No unexplained weight loss, fever, chills or night sweats. Eyes: No vision changes, blurry vision, double vision, eye pain, eye redness, eye discharge. ENT: No hearing loss, sneezing, congestion, runny nose or sore throat. Respiratory: No shortness of breath, cough or sputum production. Cardiovascular: No chest pain, chest pressure or chest discomfort. No palpitations or pedal edema. Gastrointestinal: No anorexia, nausea, vomiting or diarrhea. No abdominal pain or blood in stool. Genitourinary: No dysuria, hematuria, urinary frequency. Neurologic: No headache, dizziness, syncope, unilateral weakness, ataxia, numbness or tingling in the extremities. Musculoskeletal: See HPI Hematologic/Lymphatics: No bleeding or bruising. No painful lymph nodes. Skin: No rash or itching. Endocrine: No cold or heat intolerance. No polyuria or polydipsia. Psychiatric: No SI/HI. Physical exam: Constitutional: Alert, in no distress. Head: Normocephalic. Eyes: Pupils are equal, round and reactive to light. Extraocular muscles intact. Ear, Nose and Throat: Canals clear. TMs normal. Normal nasal mucosa. No nasal discharge. No oral lesions. Neck: Supple, Full range of motion. No lymphadenopathy. No palpable thyroid masses. Respiratory: Clear to auscultation. Cardiovascular: S1 S2 regular. No murmurs. No carotid bruits. Gastrointestinal: Abdomen soft, non-tender, non-distended. Normal bowel sounds. No palpable masses. Genitourinary: Testicular exam deferred. No CVA tenderness. Neurologic: No focal neurological deficits. Symmetric patellar reflexes. Moves all extremities spontaneously. Sensation intact bilaterally. Skin: No rashes Musculoskeletal: No gross deformities. Normal range of motion. Normal gait. No hip crepitus or tenderness. Lower extremity strength 5 out of 5 bilaterally. Extremities: Warm and well perfused. No clubbing, cyanosis or edema. Intact peripheral pulses bilaterally. Psychiatric: Normal mood and affect [facility] Medical History (Updated 06/09/25 @ 08:33 by BAIRON Portillo) Routine physical examination Bilateral hip pain Hepatic steatosis Hyperlipidemia Liver enzyme elevation Torn ACL Basal cell carcinoma Lipoma Surgical History H/O vasectomy Family History Father High blood pressure High cholesterol Substance abuse in family Mental health disorder Asthma Mother Hx of bilateral hip replacements Substance abuse in family Maternal Grandfather Cardiovascular disease Social History (Updated 06/08/25 @ 16:17 by Nina Arredondo MA) Household Members: Family Both parents involved: No Caregiver staying overnight: No Housing: House Are you a primary care management assistant to a significant other at home: No Do you presently have visiting nurse or other home services: No 75 years or older and lives alone: No Alcohol intake: current Alcohol intake frequency: a few times a week Alcohol type: beer and other Comment: Weekends Patient Tobacco Use Status: Never used Tobacco e-Cigarette/Vaping Use: Never Used Second Hand Smoke Exposure: No Agree to transfusion: No service: No Current occupational status: employed 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 1. Little interest or pleasure in doing things: several days 2. Feeling down, depressed, or hopeless: several days 3. Trouble falling or staying asleep, or sleeping too much: several days 4. Feeling tired or having little energy: several days 5. Poor appetite or overeating: not at all 6. Feeling bad about yourself - or that you are a failure or have let yourself or your family down: several days 7. Trouble concentrating on things, such as reading the newspaper or watching television: not at all 8. Moving or speaking so slowly that other people could have noticed. Or the opposite - being so fidgety or restless that you have been moving around a lot more than usual: not at all 9. Thoughts that you would be better off or of hurting yourself in some way: not at all Total score: 5 Depression Screening Interpretation: Positive Depression Screening Done: Yes 99849 - PHQ-9 Billing: Yes Source: Developed by Drs. Lance Maria, Shakila Sanchez, Nakul Sparks and colleagues, with an educational mario from [employer]. Thrive Questionnaire Date Thrive assessed: 06/08/25 I am a: Patient What is your living situation today?: I have a steady place to live THRIVE Score: 0 AUDIT C Alcohol Use Questionnaire (AUDIT-C) 1. How often do you have a drink containing alcohol?: 2-4 times a month 2. How many drinks containing alcohol do you have on a typical day when you are drinking?: 3 or 4 3. How often do you have six or more drinks on one occasion?: Less than monthly Total Score: 4 BRADLEY-7 AMB Questionnaire BRADLEY-7 Date BRADLEY - 7 assessed: 06/08/25 Feeling nervous, anxious, or on edge: 1 = Several days Not being able to stop or control worryin = Not at all Worrying too much about different things: 0 = Not at all Trouble relaxin = Not at all Being so restless that it is hard to sit still: 0 = Not at all Becoming easily annoyed or irritable: 1 = Several days Feeling afraid as if something awful might happen: 0 = Not at all Total BRADLEY-7 score (0-4 normal; 5-9 mild; 10-14 moderate; 15-21 severe): 2 Source: Developed by Drs. Lance Maria, Shakila Sanchez, Nakul Sparks and colleagues, with an educational mario from [employer]. BRADLEY-7 Assessment Billing BRADLEY-7 Assessment Tool: BRADLEY-7 Assessment 89534 Physical exam (Primary Care) Vital Signs: Last Vital Signs Temp 98.4 F 06/08/25 16:18 Pulse 60 06/08/25 16:18 Resp 14 06/08/25 16:18 BP 106/64 06/08/25 16:18 Pulse Ox 95 06/08/25 16:18 Oxygen Delivery Method Room Air 06/08/25 16:18 BMI result Body Mass Index 24.7 Tobacco/Smoking Status: Tobacco use Status Tobacco use date assessed 06/08/25 06/08/25 16:13 Patient Tobacco Use Status Never used Tobacco 06/08/25 16:17 e-Cigarette/Vaping Use Never Used 06/08/25 16:17 PHQ-9: PHQ-9 Score PHQ-9: Total score 5 06/08/25 16:46 Depression Screening Interpretation: Positive Thrive Assessment: Date of Thrive Assessment Date Thrive assessed 06/08/25 06/08/25 16:22 Coding Level of Care Code Est Pt Prev Care 40-64y(56195) Diagnoses Routine physical examination Z00.00 Bilateral hip pain M25.551; M25.552 Hepatic steatosis K76.0 Pure hypercholesterolemia E78.00 Hyperlipidemia type: pure hypercholesterolemia Anxiety F41.9 Additional Codes BRADLEY-7 Assessment Billing - BRADLEY-7 Assessment Tool: BRADLEY-7 Assessment 33808 ([id number]) PHQ-9 - 05831 - PHQ-9 Billing: Yes ([id number]) Assessment & Plan Assessment & Plan (1) Routine physical examination: Code(s): Z00.00 - Encounter for general adult medical examination without abnormal findings Category: Medical Plan: Patient is seen today for a routine physical. As part of this visit we reviewed the following issues, which are considered and essential part of preventative health in this age group: - Screening for colon cancer - Discussed Prostate cancer screening - Blood pressure screening - Nutritional and exercise counseling - Counseling of injury prevention including fire prevention, smoke alarms and seat belt usage - Screening for depression - Education about skin cancer - Recommendations about immunizations - Recommendation of an eye exam - Screening for substance abuse (2) Bilateral hip pain: Code(s): M25.551 - Pain in right hip; M25.552 - Pain in left hip Category: Medical Plan: Ordered bilateral x-rays, referred to Dr. Arias. (3) Hepatic steatosis: Code(s): K76.0 - Fatty (change of) liver, not elsewhere classified Category: Medical Plan: Continue avoidance of processed foods. Recommended the Mediterranean diet. Avoid alcohol. He is followed by Gastroenterology. He has a follow up ultrasound scheduled. (4) Hyperlipidemia: Code(s): E78.5 - Hyperlipidemia, unspecified Category: Medical Qualifiers: Hyperlipidemia type: pure hypercholesterolemia Qualified Code(s): E78.00 - Pure hypercholesterolemia, unspecified Plan: Continue avoidance of high-cholesterol foods. Continue to exercise regularly. Avoid tobacco use. Follow the Mediterranean diet. Check lipid profile. (5) Anxiety: Code(s): F41.9 - Anxiety disorder, unspecified Category: Medical Plan: Stable. Continue citalopram. Plan Schedule physical in 1 year. Orders: Orders XR hips RAND min 3V Today M25.551 - Pain in right hip, M25.552 - Pain in left hip Complete Blood Count Auto Diff Today K76.0 - Fatty (change of) liver, not elsewhere classified Lipid Panel Today E78.5 - Hyperlipidemia, unspecified, K76.0 - Fatty (change of) liver, not elsewhere classified Comprehensive Met. Panel Today K76.0 - Fatty (change of) liver, not elsewhere classified Prostate Specific Antigen Today K76.0 - Fatty (change of) liver, not elsewhere classified, Z12.5 - Encounter for screening for malignant neoplasm of prostate Referrals Sports Medicine Referral M25.551 - Pain in right hip, M25.552 - Pain in left hip
[2025-06-08 16:18] VITALS: BP 106/64; PULSE 60; RESP 14; TEMP 36.9; O2SAT 95; BMI 24.7
--- OUTSIDE RECORDS SUMMARY | 2025-06-08 18:43 | XMS_ITS | Encounter Summary ---
Author Organization [employer] Address [address] [place] [address] Care Team Providers Care Sweeper Brush Maker Machine Name Role Phone Unavailable Primary Care Provider Unavailabl e Encounter Details Date Type Department Care Team (Latest Contact Info) Description 07/25/2022 Abstract [facility] CONVERSIONS Dental, Provider, DDS Social [...]
--- OUTSIDE RECORDS SUMMARY | 2025-06-08 18:43 | XMS_ITS | Clinical Summary ---
Author Organization [facility] Address [address] [place] [phone] Phone Care Team Providers Care Automotive Salesperson Name Role Phone Stuart Coyle MD Primary [...] FOBT 2023 SIGMOIDOSCOPY 2023 VIRTUAL COLONOSCOPY 2023 INFLUENZA VACCINE (#1) 2025 COVID-19 VACCINE (3 - 2024-2 6 season) 2025 03/24/2021, 02/12/2021 Adult Td,Tdap Booster 10/10/2031 10/10/2021 [...] topic Medical Devices Not on file Insurance WELLSENSE NON NSPG PCP SILVER CLARITY CONNECTORCARE Grant [place]PO [place] RODYENSE NON NSPG PCP [facility] Address: [address] [place] [address] Grant RESTREPO [place] RODYENSE NON NSPG PCP SILVER CLARITY CONNECTORCARE RODYENSE NON NSPG PCP SILVER CLARITY CONNECTORCARE WELLSENSE NON NSPG PCP S[employer] CONNECTORCARE Care Teams Automotive Salesperson Relationship Specialty Start Date End Date Stuart Coyle MD [address] [place] [address] PCP - General Family Medicine 11/03/23 Additional Source Comments The information contained in this document represents components of the legal health record. It is not the complete legal health record.[facility]
--- OUTSIDE RECORDS SUMMARY | 2025-06-08 18:43 | XMS_ITS | Clinical Summary ---
Author Organization [employer] Address [address] [facility] [address] [place] [address] Care Team Providers Care Mold Filler Name Role Phone Unavailable Primary Care Provider [...] 3-dose series) 1997 COVID-19 Vaccine ( - 2024-2 6 season) 2025 03/24/2021, 02/12/2021 Influenza Vaccine (#1) 2025 Zoster [...] patient's age to complete this topic Insurance [facility] MEDICAID STAND ADULT
== END 2025-06-08 16:56 | disposition home or self-care (01) ==
LOC: HO.HMCFM 16:04
PROVIDERS: PCP Physician Assistant Medical; Visit Provider Physician Assistant Medical
DX: Z00.00 Encounter for general adult medical examination without abnormal findings (principal); M25.551 Pain in right hip; M25.552 Pain in left hip; K76.0 Fatty (change of) liver, not elsewhere classified; E78.00 Pure hypercholesterolemia, unspecified; F41.9 Anxiety disorder, unspecified

== ENCOUNTER → 2025-06-08 16:03 | Outpatient (BNVA) | payer OTHER, SELFPAY | PROVIDERS: PCP Physician Assistant Medical; Visit Provider Physician Assistant Medical | DX: Z00.00 Encounter for general adult medical examination without abnormal findings (principal); M25.551 Pain in right hip; M25.552 Pain in left hip; K76.0 Fatty (change of) liver, not elsewhere classified; E78.00 Pure hypercholesterolemia, unspecified; F41.9 Anxiety disorder, unspecified; Z79.899 Other long term (current) drug therapy; Z13.31 Encounter for screening for depression; Z13.39 Encounter for screening examination for other mental health and behavioral disorders | CPT/HCPCS: 96127; 99396 ==

== ENCOUNTER 2025-06-10 08:32 | Outpatient (REF) | payer OTHER, SELFPAY ==
--- NOTE | ~2025-06-10 | XR_ITS ---
EXAMINATION: XR HIP 2 OR MORE VIEWS BILATERAL HISTORY: M25.551 - Pain in right hip COMPARISON: There are no prior studies available for comparison. FINDINGS: Two views of the bilateral hips are submitted. Osseous mineralization is normal. There is no fracture or dislocation. The right hip joint space is maintained. There is mild to moderate narrowing of the left hip joint. The soft tissues are unremarkable. XR/XR hips RAND min 3V IMPRESSION: Mild to moderate narrowing of the left hip. Electronically signed by: Lance Borja MD 06/10/2025 08:58 AM EDT
--- NOTE | ~2025-06-10 | US_ITS ---
EXAMINATION: US ABDOMEN LIMITED WITH LIVER ELASTOGRAPHY HISTORY: K76.0 - Fatty (change of) liver, not elsewhere classified TECHNIQUE: Real-time grayscale ultrasound imaging of the right upper quadrant was performed and images were reviewed. COMPARISON: Comparison is made with the prior examination dated 11/07/2024. FINDINGS: Liver: The right lobe of the liver measures 14.6 cm in size. The left lobe of the liver measures 10.7 cm in size. The liver demonstrates normal homogeneous echotexture. No focal mass or intrahepatic biliary ductal dilatation is identified. There is normal hepatopedal flow in the portal vein. Ultrasound elastography of the liver was performed with 10 separate measurements of the liver parenchyma with the patient in the supine position. Measurements were obtained approximately 2 cm below Arely's capsule and perpendicular to the capsule. The median shear wave velocity is 2.00 m/s (previously 1.71 m/s). The interquartile range/median (IQR/median) is 0.09. Gallbladder and biliary tree: The gallbladder is unremarkable, without evidence of calculi, wall thickening, or pericholecystic fluid. There is no sonographic Geller sign. The common bile duct is normal in caliber measuring 3 mm. Right Kidney: The right kidney measures 11.3 cm in length and demonstrates a 10 mm lower pole cyst. The right kidney is otherwise unremarkable, without evidence of solid masses, hydronephrosis, or calculi. Pancreas: The pancreatic head, neck, and body are unremarkable. The pancreatic tail is obscured by bowel gas. Abdominal aorta and inferior vena cava: The visualized portions of the abdominal aorta and inferior vena cava are normal in caliber. There is no free fluid in the right upper quadrant. US/US abdomen johnson w elastography IMPRESSION: 10 mm right renal cyst. Otherwise unremarkable right upper quadrant ultrasound. The median shear wave velocity in the liver is 2.00 m/s, corresponding to a median liver stiffness of 12.05 kPa. The IQR/median value is 0.09. This is indicative of a quality data set. Findings are indicative of a high elastography value suggestive of compensated advanced chronic liver disease. There has been a significant increase in liver stiffness since the prior study. REFERENCE: Society of Radiologists in Ultrasound Liver Stiffness Thresholds (2020): LIVER STIFFNESS THRESHOLDS: *Shear wave velocity less than 1.3 m/s (Liver Stiffness equal or less than 5 kPa): High probability of being normal. *Shear wave velocity less than 1.7 m/s (Liver Stiffness less than 9 kPa): In the absence of other known clinical signs, rules out compensated advanced chronic liver disease. *Shear wave velocity between 1.7-2.1 m/s (Liver Stiffness 9-13 kPa): Suggestive of compensated advanced chronic liver disease but need further test for confirmation. *Shear wave velocity between 2.1-2.4 m/s (Liver Stiffness 13-17 kPa): Rules in compensated advanced chronic liver disease. *Shear wave velocity greater than 2.4 m/s (Liver Stiffness over 17 kPa): Suggestive of clinically significant portal hypertension. QUALITY OF DATA SET: *IQR/Median value equal or less than 0.15 implies a quality data set. *IQR/Median value over 0.15 implies a poor quality data set. SIGNIFICANT CHANGE FROM PRIOR EXAM: Significant change if liver stiffness measurement is 10% or greater from prior exam. OTHER CONSIDERATIONS: The stage of liver fibrosis may be overestimated in the setting of acute hepatitis, liver inflammation, elevated liver function tests, hepatic vascular congestion, obstructive cholestasis, non-fasting state, and infiltrative diseases such as amyloidosis and lymphoma. In some patients with NAFLD, the liver stiffness thresholds for compensated advanced chronic liver disease may be lower. In causes other than viral hepatitis and NAFLD, liver stiffness thresholds are not well established. Electronically signed by: Lance Borja MD 06/10/2025 09:27 AM EDT
--- OUTSIDE RECORDS SUMMARY | 2025-06-10 09:51 | XMS_ITS | Clinical Summary ---
Author Organization [employer] Address [address] [facility] [address] [place] [address] Care Team Providers Care Rf Test Technician Name Role Phone Unavailable Primary Care [...] patient's age to complete this topic Insurance [facility] MEDICAID STAND ADULT
--- OUTSIDE RECORDS SUMMARY | 2025-06-10 09:51 | XMS_ITS | Encounter Summary ---
Author Organization [employer] Address [address] [place] [address] Care Team Providers Care Retail Chain Store Area Supervisor Name Role Phone Unavailable Primary Care Provider Unavailabl e Encounter Details Date Type Department Care Team (Latest Contact Info) Description 07/25/2022 Abstract [facility] CONVERSIONS Dental, Provider, DDS Social History [...]
--- OUTSIDE RECORDS SUMMARY | 2025-06-10 09:51 | XMS_ITS | Clinical Summary ---
Author Organization [facility] Address [address] [place] [phone] Phone Care Team Providers Care Glass Vial Filler Name Role Phone Stuart Coyle MD Primary [...] NSPG PCP S[employer]ARITY CONNECTORCARE Grant RESTREPO [place] RODYENSE NON NSPG PCP SILVER CLARITY CONNECTORCARE Grant RESTREPO [place] RODYENSE NON NSPG PCP SILVER CLARITY CONNECTORCARE RODYENSE NON NSPG PCP SILVER CLARITY CONNECTORCARE WELLSENSE NON NSPG PCP S[employer] CL[employer]ITY CONNECTORCARE Care Teams Glass Vial Filler Relationship Specialty Start Date End Date Stuart Coyle MD [address] [place] [address] PCP - General Family Medicine 11/03/23 Additional Source Comments The information contained in this document represents components of the legal health record. It is not the complete legal health record.[facility]
== END 2025-06-10 08:33 | disposition home or self-care (01) ==
LOC: HO.US 08:32
PROVIDERS: PCP Physician Assistant Medical; Visit Provider Nurse Practitioner Family
DX: M25.551 Pain in right hip (principal); M25.552 Pain in left hip; K76.0 Fatty (change of) liver, not elsewhere classified
CPT/HCPCS: 73522; 76705; 76981

== ENCOUNTER → 2025-06-10 08:34 | Outpatient (BNV) | payer OTHER, SELFPAY | PROVIDERS: PCP Physician Assistant Medical; Visit Provider Radiology Diagnostic Radiology | DX: K76.0 Fatty (change of) liver, not elsewhere classified (principal); M16.12 Unilateral primary osteoarthritis, left hip | CPT/HCPCS: 73522; 76705 ==

== ENCOUNTER 2025-06-16 06:29 | Day surgery (SDC) | payer OTHER, SELFPAY ==
--- OUTSIDE RECORDS SUMMARY | 2025-05-22 15:08 | XMS_ITS | Clinical Summary ---
Author Organization [facility] Address [address] [place] [id number] Phone Care Team Providers Care Medical Collector Name Role Phone Stuart Coyle MD Primary Care Provider Allergies No known active allergies Medications minoxidiL (ROGAINE) 2 % external solution apply to scalp daily Active finasteride (PROSCAR) 5 mg tablet Take 1 tablet by mouth daily. Active citalopram (CELEXA) 20 MG tablet Take 1 tablet every day by oral route for 30 days. 11/01/2023 Active Active Problems No known active problems Immunizations Immunization Administration Dates Next Due Td (adult), not adsorbed 08/25/2003 Tdap 10/10/2021,10/01/2011 Social History Tobacco Use Types Packs/Day Years Used Date Smoking Tobacco: Never Smokeless Tobacco: Never Tobacco Cessation:Counseling Given: Not Answered Education Answer Date Recorded Are you interested in more education? Not on bernardo e 11/03/2023 Are you concerned about learning? Not on file 11/03/2023 No 11/03/2023 No 11/03/2023 Digital Access Answer Date Recorded No 11/03/2023 No 11/03/2023 Reliable internet access at home? Not on file 11/03/2023 Device with a working camera? Not on file Sex and Gender Information Value Date Recorded Sex Assigned at Not on file Legal Sex Male 2:21 PM EST Gender Identity Not on file Sexual Orientation Not on file Last Filed Vital Signs Vital Sign Reading Time Taken Comments Blood Pressure 136/77 01/02/2024 1:18 PM EDT Pulse 52 01/02/2024 1:18 PM EDT Temperature 36.7 C (98 F) 01/02/2024 1:18 PM EDT Respiratory Rate 18 01/02/2024 1:18 PM EDT Oxygen Saturation 100% 01/02/2024 1:18 PM EDT Inhaled Oxygen Concentration - - Weight 87.1 kg (192 lb) 11/03/2023 2:36 PM EST Height 185.4 cm (6' 1 ) 11/03/2023 2:36 PM EST Body Mass Index 25.33 11/03/2023 2:36 PM EST Plan of Treatment Health Maintenance Due Date Last Done Comments LIPID PANEL 1978 DEPRESSION SCREENING 1990 HEPATITIS C SCREENING 01/17/1996 HIV ONE-TIME SCREENING (18-6 5 YEARS) 01/17/1996 SMOKING STATUS SCREENING (On ce After 26 Yrs) 01/17/2004 SCREENING FOR DIABETES 2013 COLOGUARD 2023 COLONOSCOPY 2023 COLORECTAL CANCER SCREENING 2023 FIT TEST 2023 FOBT 2023 SIGMOIDOSCOPY 2023 VIRTUAL COLONOSCOPY 2023 COVID-19 VACCINE (3 - 2023-2 5 season) 2024 03/24/2021, 02/12/2021 Adult Td,Tdap Booster 10/10/2031 10/10/2021 , 10/01/2011, 08/25/2003 HEPATITIS A VACCINES Aged Out No long er eligible based on patient's age to complete this topic HIB VACCINES Aged Out No longer eligi ble based on patient's age to complete this topic MENINGOCOCCAL VACCINES (ACWY) Aged Out No longer eligible based on patient's age to complete this topic MENINGOCOCCAL VACCINES (B) Aged Out N o longer eligible based on patient's age to complete this topic PNEUMOCOCCAL VACCINES (0-49 years) Aged Out No longer eligible b ased on patient's age to complete this topic Medical Devices Not on file Insurance [facility] ANDRES NSP[place] PCP [facility] NON NSPG PCP [facility]CARE [facility] NON NSPG PCP [facility] CONNECTORCARE [employer] NON NSPG PCP [employer] NON NSPG PCP S[employer] NON NSPG PCP [employer] Care Teams Medical Collector Relationship Specialty Start Date End Date Stuart Coyle MD [address] [place] [address] PCP - General Family Medicine 11/03/23 Additional Source Comments The information contained in this document represents components of the legal health record. It is not the complete legal health record.[facility]
--- OUTSIDE RECORDS SUMMARY | 2025-05-22 15:08 | XMS_ITS | Encounter Summary ---
Author Organization [employer] Address [address] [facility] [address] [place] [address] Care Team Providers Care Machine Shop Apprentice Name Role Phone Unavailable Primary Care Provider Unavailabl e Encounter Details Date Type Department Care Team (Latest Contact Info) Description 07/25/2022 Abstract [facility] CONVERSIONS Dental, Provider, DDS Social History [...]
--- NOTE | 2025-06-15 08:47 | HO.ANESPROP2 ---
Documented by User: Angely Valdivia NP 06/15/25 08:47 HPI - Anesthesia Eval Consult details Narrative: 45yo M for Colonoscopy PMFSH Active Problems Active Problems: All Active Problems Routine physical examination (Acute) Bilateral hip pain (Acute) Hepatic steatosis (Acute) Hyperlipidemia (Acute) Liver enzyme elevation (Acute) Lipoma (Acute) Laboratory exam ordered as part of routine general medical examination (Acute) Hair loss (Acute) Anxiety (Acute) Past Medical History Medical History Routine physical examination Bilateral hip pain Hepatic steatosis Hyperlipidemia Liver enzyme elevation Torn ACL Basal cell carcinoma Lipoma Family History Family History Father High blood pressure High cholesterol Substance abuse in family Mental health disorder Asthma Mother Hx of bilateral hip replacements Substance abuse in family Maternal Grandfather Cardiovascular disease Surgical History Surgical History Hx of basal cell carcinoma excision H/O vasectomy Social History Social History Household Members: Family Both parents involved: No Caregiver staying overnight: No Housing: House Are you a primary nursing care attendant to a significant other at home: No Do you presently have visiting nurse or other home services: No 75 years or older and lives alone: No Alcohol intake: current Alcohol intake frequency: a few times a week Alcohol type: beer and other Comment: Weekends Patient Tobacco Use Status: Never used Tobacco e-Cigarette/Vaping Use: Never Used Second Hand Smoke Exposure: No Agree to transfusion: No service: No Current occupational status: employed 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 Cognitive needs: No Hearing needs: No Vision needs: No Meds Allergies Allergy/AdvReac Type Severity Reaction Status Date / Time No Known Allergies Allergy Verified 06/16/25 06:41 Home Medications ?Medication ?Instructions ?Recorded ?Confirmed ?Last Taken ?Type multivitamin 1 tab PO DAILY 03/17/24 06/16/25 Unknown History finasteride 5 mg tablet 5 mg PO DAILY 06/08/25 06/16/25 Unknown History Assessment and Plan Assessment Anesthesia Assessment: Chart Reviewed Documented by User: Tunde Grant MD 06/16/25 15:58 PMFSH Past Medical History Medical History Routine physical examination Bilateral hip pain Hepatic steatosis Hyperlipidemia Liver enzyme elevation Torn ACL Basal cell carcinoma Lipoma Family History Family History Father High blood pressure High cholesterol Substance abuse in family Mental health disorder Asthma Mother Hx of bilateral hip replacements Substance abuse in family Maternal Grandfather Cardiovascular disease Family history of problems with anesthesia: No Surgical History Surgical History Hx of basal cell carcinoma excision H/O vasectomy History of Problems with Anesthesia: No Social History Social History Household Members: Family Both parents involved: No Caregiver staying overnight: No Housing: House Are you a primary nursing care attendant to a significant other at home: No Do you presently have visiting nurse or other home services: No 75 years or older and lives alone: No Alcohol intake: current Alcohol intake frequency: a few times a week Alcohol type: beer and other Comment: Weekends Patient Tobacco Use Status: Never used Tobacco e-Cigarette/Vaping Use: Never Used Second Hand Smoke Exposure: No Agree to transfusion: No service: No Current occupational status: employed 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 Cognitive needs: No Hearing needs: No Vision needs: No Meds Allergies Allergy/AdvReac Type Severity Reaction Status Date / Time No Known Allergies Allergy Verified 06/16/25 06:41 Home Medications ?Medication ?Instructions ?Recorded ?Confirmed ?Last Taken ?Type multivitamin 1 tab PO DAILY 03/17/24 06/16/25 Unknown History finasteride 5 mg tablet 5 mg PO DAILY 06/08/25 06/16/25 Unknown History Exam Airway Mallampati Class: I TM Dist: >3cm Neck ROM: Full Assessment and Plan Assessment Anesthesia Assessment: Anesthesia Plan Discussed Final Anesthetic Review Family History of Problems with Anesthesia: No History of Problems with Anesthesia: No NPO: Yes ASA Class: II Final Preanesthetic Review: No Changes in Pt Med Stat, Meds/Allgs Chart Reviewed, Consent Obtained/Reviewed and Anes Risks/Benef Reviewed Patient Risk: Low Procedure Risk: Low Anesthetic Plan Anesthetic Plan: MAC: Disposition: Standard PACU
[2025-06-16 06:45] VITALS: BMI 24.1
--- NOTE | 2025-06-16 06:49 | MHC.SHP ---
Pre-Procedural Eval Section A - 24 Hr Update-Section A only Date of Service: 06/16/25 Section B - Complete if H&P > 30 days Chief Complaint: screening Relevant Family History (Specify if Yes): No Relevant Social History: None Present Medications: see Short Stay Collaborative assessment Medical History: Significant History (Bilateral hip pain Hepatic steatosis Hyperlipidemia Liver enzyme elevation Torn ACL Basal cell carcinoma Lipoma) History of Previous Operations: Relevant previous surgery/procedure and date(s) (H/O vasectomy) Allergies: Allergies Allergy/AdvReac Type Severity Reaction Status Date / Time No Known Allergies Allergy Verified 06/16/25 06:41 Review of Systems Sugical H&P ROS: Negative: Constitution, Cardiovascular, Respiratory, Neurological, Psychiatric, Hem-Onc, Allergic/Immunologic, Gastrointestinal, Genitourinary, Musculoskeletal, Integumentary, Endocrine and Eyes/Ears/Nose/Throat Exam Surgical H&P Exam: Normal: HEENT, Normal: Heart, Normal: Lungs, Normal: Extremities, Normal: Abdomen, Normal: Skin and Normal: Neurological Plan Diagnosis/Plan: Unchanged I have reviewed the history and physical and performed a pertinent physical examination on my patient. No changes have occurred unless specified. Time Spent With Patient Time: Total time managing care of this patient today ____ minutes.
[2025-06-16 06:51] VITALS: BP 123/62; PULSE 45; RESP 15; TEMP 36.2; O2SAT 99
[2025-06-16] MEDS: Lactated Ringers 1,000 ML 100 ML IVCONT (07:03)
--- NOTE | 2025-06-16 07:45 | P.OPN-COLO_ITS ---
Colonoscopy Operative Note Operative Note Date of Service: 06/16/25 Narrative: Operative Information Procedure Description: Colonoscopy Indication: screening Anesthesia: MAC COLONOSCOPY Instrument: Olympus variable stiffness pediatric scope 190L Colonoscopy Monitoring: Vital signs and clinical assessment, continuous EKG monitoring, Pulse oximetry, Carbon Dioxide monitoring and blood pressure monitoring were done throughout the procedure. Colon withdrawal time was 8 minutes. Procedure: The patient was placed in the left lateral decubitis position and pre-procedure medications were administered. After a digital rectal examination of the ano-rectum, the video colonoscope was inserted into the rectum and advanced through the colon to the cecum/TI. The colonoscope was slowly withdrawn in a retrograde panoramic fashion and the colon mucosa was carefully examined including a retroflexed view of the rectum. Findings and interventions are described below. Procedure Difficulty: easy Findings: Terminal Ileum-normal Cecum:normal right sided retroflexion - normal Ascending Colon: normal Transverse Colon -normal Descending Colon:normal Sigmoid Colon: normal Rectum: Retroflexion with small internal hemorrhoids seen, grade I with moderate distal rectal erythema and mild edema, bx taken Anorectum - normal Intervention: cold forceps biopsy Colon preparation: [place] Bowel Preparation Scale Right colon; 2 Transverse colon: 2 Left colon; 2 (0 = Unprepared colon segment with mucosa not seen due to solid stool that cannot be cleared. 1 = Portion of mucosa of the colon segment seen, but other areas of the colon segment not well seen due to staining, residual stool and/or opaque liquid. 2 = Minor amount of residual staining, small fragments of stool and/or opaque liquid, but mucosa of colon segment seen well. 3 = Entire mucosa of colon segment seen well with no residual staining, small fragments of stool or opaque liquid) Impression and Post Procedure Diagnosis: proctitis vs prep artifact internal hemorrhoids Plan: High fiber diet leaflet Avoid straining at stool, epsom salts and sitz bath, anusol supps or cream Repeat Colonoscopy in 10 years or earlier if clinically indicated review symptoms with patient if any stool urgency or incomplete evacuation sx, can treat with topical steroid or mesalamine Above findings were reviewed with the patient and relevant handouts were provided if indicated.
[2025-06-16 08:11] VITALS: BP 110/62; PULSE 52; RESP 16; TEMP 36.1; O2SAT 98
[2025-06-16 08:26] VITALS: BP 121/75; PULSE 52; RESP 18; TEMP 36.2; O2SAT 96
== END 2025-06-16 08:46 | disposition home or self-care (01) ==
PROVIDERS: PCP Physician Assistant Medical; Visit Provider Internal Medicine Gastroenterology
PROC: 0DJD8ZZ Inspection of Lower Intestinal Tract, Via Natural or Artificial Opening Endoscopic (ICD-10-PCS; CPT 45378; principal; 2025-06-16 07:30)
DX: Z12.11 Encounter for screening for malignant neoplasm of colon (principal); K64.0 First degree hemorrhoids; K62.89 Other specified diseases of anus and rectum; E78.5 Hyperlipidemia, unspecified; K76.0 Fatty (change of) liver, not elsewhere classified; Z79.899 Other long term (current) drug therapy
CPT/HCPCS: 45380; 88305; J2003; J2704

== ENCOUNTER → 2025-06-16 06:29 | Outpatient (BNV) | payer OTHER, SELFPAY | PROVIDERS: PCP Physician Assistant Medical; Visit Provider Internal Medicine Gastroenterology | DX: Z12.11 Encounter for screening for malignant neoplasm of colon (principal); K63.89 Other specified diseases of intestine; K64.0 First degree hemorrhoids | CPT/HCPCS: 45380 ==

== ENCOUNTER 2025-06-30 08:37 | Outpatient (AMB) | payer OTHER, SELFPAY ==
[2025-06-30 08:51] VITALS: BP 110/66; PULSE 44; O2SAT 100; BMI 24.9
--- NOTE | 2025-06-30 08:51 | MHC.OFFVIS ---
Vital Signs 06/30/25 08:51 Height 6 ft 1 in Weight 189 lb BMI 24.9 BP 110/66 Blood Pressure Location Rt brachial Position Sitting Pulse 44 L Pulse Source Pulse Oximeter Pulse Oximetry (%) 100 Oxygen Delivery Method Room Air Intake Visit Reasons: 30 m. S/P [place]. Provider req appt. Intake Note: EST PATIENT for abn LFTs mgmt. S/P [place] CC; Pt denies any GI changes or new sx at this time. 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 S/P [place]. Provider req appt.: Details: LAST VISIT Liver enzyme elevation Hepatic steatosis Screen for colon cancer Plan Continue low-fat, low carb, low-salt and high-protein diet. Avoid alcohol. We will repeat lab work before his next appointment as well as ultrasound with liver elastography. Patient will be sent for colonoscopy as he never had one before. No issues with anesthesia in the past. No history of sleep apnea. Not on any anticoagulation medication. What to expect before during and after procedure discussed with patient. Stressed the importance of good bowel prep and clear liquid diet day before procedure. Patient is agreeable to current plan of care and verbalizes understanding of instructions. He was given the opportunity to ask questions and all questions answered. ? Thank you for allowing me to participate in his care for Orders Liver Panel Today R74.01 US abdomen johnson w elastography Today K76.0 New bisacodyl (Dulcolax (bisacodyl)) take 4 tabs at noon the day before your colonoscopy 20 mg (4 x 5 mg) PO ONCE 4 tabs 0RF constipation 1 day Z12.11 polyethylene glycol 3350 (Miralax) As directed by gastroenterology department at [facility] 238 grams PO ONCE 238 grams 0RF Z12.11 COLONOSCOPY Findings: Terminal Ileum-normal Cecum:normal right sided retroflexion - normal Ascending Colon: normal Transverse Colon -normal Descending Colon:normal Sigmoid Colon: normal Rectum: Retroflexion with small internal hemorrhoids seen, grade I with moderate distal rectal erythema and mild edema, bx taken Anorectum - normal Intervention: cold forceps biopsy Colon preparation: [place] Bowel Preparation Scale Right colon; 2 Transverse colon: 2 Left colon; 2 (0 = Unprepared colon segment with mucosa not seen due to solid stool that cannot be cleared. 1 = Portion of mucosa of the colon segment seen, but other areas of the colon segment not well seen due to staining, residual stool and/or opaque liquid. 2 = Minor amount of residual staining, small fragments of stool and/or opaque liquid, but mucosa of colon segment seen well. 3 = Entire mucosa of colon segment seen well with no residual staining, small fragments of stool or opaque liquid) Impression and Post Procedure Diagnosis: proctitis vs prep artifact internal hemorrhoids Plan: High fiber diet leaflet Avoid straining at stool, epsom salts and sitz bath, anusol supps or cream Repeat Colonoscopy in 10 years or earlier if clinically indicated review symptoms with patient if any stool urgency or incomplete evacuation sx, can treat with topical steroid or mesalamine PATHOLOGY RESULTS: Diagnosis Colon, rectum, biopsy: Mild active proctitis; negative for granulomas and dysplasia. Comment: The differential includes infection, bowel prep, medications, and early inflammatory bowel disease and clinical correlation is necessary TODAY'S VISIT Patient is here today for follow-up and to discuss colonoscopy results. Patient denies any ill effects from the prep, anesthesia or procedure itself. Patient had no polyps. Mild proctitis found in the rectum without granulomas or dysplasia. Patient reports that he is moving his bowels well. Denies any rectal pain. Patient reports that he has been feeling great. Denies any GI concerning symptoms. Here to discuss elevation of his liver enzymes and increase elastography on ultrasound. Patient reports that he changed his diet. He is not eating greasy food drinks alcohol occasionally. Patient believes that before he went for ultrasound he might of been away that we can not and possibly had more alcohol than usual. Patient is not a heavy drinker though. We have ruled out any autoimmune disorders, hepatitis, celiac disease. [facility] Medical History Routine physical examination Bilateral hip pain Hepatic steatosis Hyperlipidemia Liver enzyme elevation Torn ACL Basal cell carcinoma Lipoma Surgical History Hx of basal cell carcinoma excision H/O vasectomy Family History Father High blood pressure High cholesterol Substance abuse in family Mental health disorder Asthma Mother Hx of bilateral hip replacements Substance abuse in family Maternal Grandfather Cardiovascular disease Social History Household Members: Family Both parents involved: No Caregiver staying overnight: No Housing: House Are you a primary before and after school daycare worker to a significant other at home: No Do you presently have visiting nurse or other home services: No 75 years or older and lives alone: No Alcohol intake: current Alcohol intake frequency: a few times a week Alcohol type: beer and other Comment: Weekends Patient Tobacco Use Status: Never used Tobacco e-Cigarette/Vaping Use: Never Used Second Hand Smoke Exposure: No Agree to transfusion: No service: No Current occupational status: employed 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 Cognitive needs: No Hearing needs: No Vision needs: No Review of Systems Const Denies weight gain and Denies weight loss ENT Reports no additional complaints, Denies dysphagia and Denies odynophagia Card Reports no additional complaints Resp Reports no additional complaints GI Denies abdominal pain, Denies belching, Denies melena, Denies bloating, Denies change in bowel habits, Denies dysphagia, Denies excessive flatus, Denies dyspepsia, Denies heartburn, Denies diarrhea, Denies loose stools, Denies nausea, Denies odynophagia and Denies vomiting Reports no additional complaints Musc Reports no additional complaints Neuro Reports no additional complaints Psych Reports no additional complaints Endo Reports no additional complaints Physical Exam Vital Signs: Last Vital Signs Pulse 44 L 06/30/25 08:51 BP 110/66 06/30/25 08:51 Pulse Ox 100 06/30/25 08:51 Oxygen Delivery Method Room Air 06/30/25 08:51 BMI result Body Mass Index 24.9 Const General: healthy appearing, no acute distress and well developed Nutritional Appearance: well nourished Orientation/consciousness: patient oriented x3 Resp Effort & Inspection: normal respiratory effort, able to speak in complete sentences, no tracheal deviation and symmetric chest movement Auscultation: clear to auscultation bilaterally Cardio Rate: regular rate GI Inspection: Yes normal to inspection and No distended Palpation (GI): Soft to palpation, not firm, nontender and No hepatosplenomegaly present Auscultation: normal bowel sounds General: Yes no CVA tenderness Back/Spine/Pelvis Back: no CVA tenderness Skin General skin exam: elasticity normal, turgor normal and dry skin Neuro General: patient oriented x3 Psych Appearance: grossly normal Mental Status: mental status grossly normal Results Reviewed Results Reviewed: Laboratory Tests 03/25/25 06/02/25 09:33 15:33 Total Bilirubin 0.4 Direct Bilirubin 0.1 AST 59 H 53 H ALT 31 34 Alkaline Phosphatase 73 LIVER ULTRASOUND WITH ELASTOGRAPHY 06/10/2025 IMPRESSION: 10 mm right renal cyst. Otherwise unremarkable right upper quadrant ultrasound. The median shear wave velocity in the liver is 2.00 m/s, corresponding to a median liver stiffness of 12.05 kPa. The IQR/median value is 0.09. This is indicative of a quality data set. Findings are indicative of a high elastography value suggestive of compensated advanced chronic liver disease. There has been a significant increase in liver stiffness since the prior study. Assessment & Plan Assessment & Plan (1) Liver enzyme elevation: Code(s): R74.8 - Abnormal levels of other serum enzymes Category: Medical (2) Hepatic steatosis: Code(s): K76.0 - Fatty (change of) liver, not elsewhere classified Category: Medical (3) Proctitis: Code(s): K62.89 - Other specified diseases of anus and rectum Plan Patient will continue exercise. He will continue she avoid cough and food. Avoid alcohol. Will repeat liver fibrosis panel, liver profile and ultrasound with elastography in 6 months before his next appointment. Will check lipase and fecal calprotectin to rule out IBD. Patient will follow-up in 6 months, sooner on as needed basis. Patient is agreeable to current plan of care and verbalizes understanding of instructions. He was given the opportunity to ask questions and all questions answered. Thank you for allowing me to participate in his care Orders: Orders Liver Panel 6 Months R74.01 - Elevation of levels of liver transaminase levels Lipase Today R10.9 - Unspecified abdominal pain Calprotectin, Fecal Today R74.8 - Abnormal levels of other serum enzymes Liver Fibrosis Pnl 6 Months K76.0 - Fatty (change of) liver, not elsewhere classified US abdomen johnson w elastography 6 Months K76.0 - Fatty (change of) liver, not elsewhere classified Medications: New hydrocortisone 2.5% (Proctosol HC) 1 appl [place] BID-QID PRN 30 grams 2RF hemorrhoids K64.9 - Unspecified hemorrhoids Coding Level of Care Code Est Pt Level 4 (21783) Complex EM visit Add On G2211 Diagnoses Liver enzyme elevation R74.8 Hepatic steatosis K76.0 Proctitis K62.89 Time Spent (min) 35 Comment 25 minutes spent with patient and additional 10 minutes spent reviewing his records
--- OUTSIDE RECORDS SUMMARY | 2025-06-30 09:03 | XMS_ITS | Clinical Summary ---
Author Organization [employer] Address [address] [place] [address] Care Team Providers Care Buddhist Monk Name Role Phone Unavailable Primary Care Provider [...] patient's age to complete this topic Insurance [facility] MEDICAID STAND ADULT
--- OUTSIDE RECORDS SUMMARY | 2025-06-30 09:03 | XMS_ITS | Encounter Summary ---
Author Organization [employer] Address [address] [place] [address] Care Team Providers Care Employee Benefits Director Name Role Phone Unavailable Primary Care Provider [...]
--- OUTSIDE RECORDS SUMMARY | 2025-06-30 09:03 | XMS_ITS | Clinical Summary ---
Author Organization [facility] Address [address] [place] [phone] Phone Care Team Providers Care Regeneration Operator Name Role Phone Stuart Coyle MD Primary [...] NSPG PCP [facility] [place] NON NSPG PCP [facility] Address: [address] [place] [address] [employer] NON NSPG PCP [facility] RODYENSE NON NSPG PCP [facility] [place] NON NSPG PCP [facility] Care Teams Regeneration Operator Relationship Specialty Start Date End Date Stuart Coyle MD [address] [place] [address] PCP - General Family Medicine 11/03/23 Additional Source Comments The information contained in this document represents components of the legal health record. It is not the complete legal health record.[facility]
== END 2025-06-30 09:15 | disposition home or self-care (01) ==
PROVIDERS: PCP Physician Assistant Medical; Visit Provider Nurse Practitioner Family
DX: R74.8 Abnormal levels of other serum enzymes (principal); K76.0 Fatty (change of) liver, not elsewhere classified; K62.89 Other specified diseases of anus and rectum
CPT/HCPCS: 99214

== ENCOUNTER → 2025-06-30 08:37 | Outpatient (BNVA) | payer OTHER, SELFPAY | PROVIDERS: PCP Physician Assistant Medical; Visit Provider Nurse Practitioner Family | DX: R74.01 Elevation of levels of liver transaminase levels (principal); R74.8 Abnormal levels of other serum enzymes; K76.0 Fatty (change of) liver, not elsewhere classified; K62.89 Other specified diseases of anus and rectum | CPT/HCPCS: 99212 ==

== ENCOUNTER 2025-07-15 09:17 | Outpatient (REF) | payer OTHER, SELFPAY ==
--- OUTSIDE RECORDS SUMMARY | 2025-07-15 10:23 | XMS_ITS | Encounter Summary ---
Author Organization [employer] Address [address] [place] [address] Care Team Providers Care Documentation Clerk Name Role Phone Unavailable Primary Care Provider Unavailabl e Encounter Details Date Type Department Care Team (Latest Contact Info) Description 07/25/2022 Abstract [facility] CONVERSIONS Dental, Provider, DDS Social [...]
--- OUTSIDE RECORDS SUMMARY | 2025-07-15 10:23 | XMS_ITS | Clinical Summary ---
Author Organization [employer] Address [address] [facility] [address] [place] [address] Care Team Providers Care Logistics Solution Manager Name Role Phone Unavailable Primary Care Provider [...] patient's age to complete this topic Insurance [facility] MEDICAID STAND ADULT
--- OUTSIDE RECORDS SUMMARY | 2025-07-15 10:23 | XMS_ITS | Data Portability ---
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 Plan of Treatment Reminders Order Date Submit Date Provider Last Modified By Organization Details Last Modified Time Details Appointments None record ed. Lab urinal ysis, dipsti ck 2021 [email or web address] In-Office Order, Internal Use Only DO Not Attach Compendium DO Not Attach Compendium, Do Not Delete/merge, [id number] 15:51:30 CT + NG DNA, PCR, urine 2021 [facility], [address], [address], [place], [address], 16:29:37 hepati tis C virus Ab, serum 2021 [facility], [address], [address], [place], [address], 3 11:25:41 lipid panel, serum 2021 [facility], [address], [address], [place], [address], 3 14:57:40 CMP, serum or plasma 2021 [facility], [address], [address], [place], [address], 3 14:57:38 hepati tis C virus Ab, serum 2021 022 [facility], [address], [address], [place], [address], 2 15:14:56 lipid panel, serum 2021 022 [email or web address], [address], [address], [place], [address], 2 09:20:48 CMP, serum or plasma 2021 022 [email or web address], [address], [address], [place], [address], 2 09:20:47 Referral genera l surgeo n referr al 2022 023 amane Jesse Jama MD, [address] [place] [address] , [address], [place], [address], 3 09:49:38 dermat ologis t referr al 2022 023 Not available 3 11:58:34 gastro entero logist referr thomas - Needs colon cancer screen ing 2022 023 [facility], [address] [place], [address], 3 16:02:15 urolog ist referr al - Urethr itis. 2021 022 [email or web address] [facility], [address] [facility], [place], [address], 2 09:52:09 ophtha lmolog ist referr al 2021 022 [email or web address] Not available 09:17:59 Procedures colono scopy screen ing (PROC) 2022 023 [email or web address] In-Office Order, Internal Use Only DO Not Attach Compendium DO Not Attach Compendium, Do Not Delete/merge, [id number] 08:40:27 Surgeries None record ed. Imaging None record ed. Medication Orders hydroc ortiso ne 2.5 % topica l cream with perine al applic ator 2022 023 [facility], [address] [place], [address], 14:56:56 erythr omycin 5 mg/gra m (0.5 %) eye ointme nt 2021 [email or web address] [facility] #[id number], [address] [place], [address], 15:32:04 citalo pram 20 mg tablet 2021 022 [facility], [address] [place], [address], 14:42:12 Patient TargetsNo targets recorded. Patient Instructions Encounter Date Encounter Id Patient Instructions Last Modified By Organization Details Last Modified Time 10/10/2021 [id number] Well Visit, Ages 18 to 65: Care [...] medication. pmadden Not available 10/10/2021 15:07:45 12/26/2021 [id number] Preventing Depression From Coming Back: Care Instructions [...] medication. pmadden Not available 12/26/2021 14:42:01 07/06/2022 [id number] styes and chalazia: care instructions pmadden Not available 07/06/2022 11:50:32 check fasting labs before upcoming PE pmadden Not available 07/06/2022 12:54:13 10/23/2022 [id number] learning about colon cancer pmadden Not available [...] Not available 10/23/2022 14:44:35 Reason for Referral Manager Money Referral for Hordeolum externum of lower eyelid of left eye Referring Physician: Edda Lew, Internal Medicine, Encounter Date: 07/06/2022 Urologist Referral for Dysur ia Urethritis. 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 Trach omati s Not Available [facility] (Centralized Electronic Ordering - All Locations) Patient Can Go To The Location Of Their Choice, [id number] 07/27/2022 16:29:37 07/26/2007/27/2022 URINE CHLAM YDIA GC [...] neede d. Conta ct phone numbe r [phone]. Thera peuti c failu re or succe ss canno t be deter mined with the Aptim a Combo 2 assay since nucle ic acid may persi st follo wing appro priat e antim icrob ial thera py. The [facility] se Cont[facility] ol and Preve ntion ([facility]) recom mends confi rmato ry retes ting using cultu re or a diffe rent nucle ic acid ampli ficat ion test when posit yomaira resul ts occur , if indic ated. Not Available [facility] (Centralized Electronic Ordering - All Locations) Patient Can Go To The Location Of Their Choice, [id number] 07/27/2022 16:29:37 07/26/2007/26/2022 urina lysis , dipst ick Leukocytes Negati ve Not Available In-Office Order Internal Use Only DO Not Attach Compendium DO Not Attach Compendium, Do Not Delete/merge, [id number] 07/26/2022 15:27:09 07/26/20 22 07/26/2022 urina lysis , dipst ick Nitritie negati ve Not Available In-Office Order Internal Use Only DO Not Attach Compendium DO Not Attach Compendium, Do Not Delete/merge, [id number] 07/26/2022 15:27:09 07/26/20 22 07/26/2022 urina lysis , dipst ick Urobilinogen .2 Not Available In-Of fice Order Internal Use Only DO Not Attach Compendium DO Not Attach Compendium, Do Not Delete/merge, [id number] 07/26/2022 15:27:09 07/26/20 22 07/26/2022 urina lysis , dipst ick Protein Negati ve Not Available In-Office Order Internal Use Only DO Not Attach Compendium DO Not Attach Compendium, Do Not Delete/merge, 07/26/2022 15:27:09 07/26/2007/26/2022 urina lysis , dipst ick pH 6.0 Not Available In-Office Order Internal Use Only DO Not Attach Compendium DO Not Attach Compendium, Do Not Delete/merge, [id number] 07/26/2022 15:27:09 07/26/2007/26/2022 urina lysis , dipst ick Blood Negati ve Not Available In-Office Order Internal Use Only DO Not Attach Compendium DO Not Attach Compendium, Do Not Delete/merge, 07/26/2022 15:27:09 07/26/20 22 07/26/2022 urina lysis , dipst ick Specific Maynard 1.015 Not Available In-Off ice Order Internal Use Only DO Not Attach Compendium DO Not Attach Compendium, Do Not Delete/merge, [id number] 07/26/2022 15:27:09 07/26/20 22 07/26/2022 urina lysis , dipst ick Ketone Negati ve Not Available In-Office Order Internal Use Only DO Not Attach Compendium DO Not Attach Compendium, Do Not Delete/merge, 07/26/2022 15:27:09 07/26/2007/26/2022 urina lysis , dipst ick Bilirubin Negati ve Not Available In-Office Order Internal Use Only DO Not Attach Compendium DO Not Attach Compendium, Do Not Delete/merge, [id number] 07/26/2022 15:27:09 07/26/20 22 07/26/2022 urina lysis , dipst ick Glucose Negati ve Not Available In-Office Order Internal Use Only DO Not Attach Compendium DO Not Attach Compendium, Do Not Delete/merge, 07/26/2022 15:27:09 07/26/20 22 07/26/2022 urina lysis , dipst ick Appearance Clear Not Available In-Offi ce Order Internal Use Only DO Not Attach Compendium DO Not Attach Compendium, Do Not Delete/merge, 07/26/2022 15:27:09 07/26/20 22 07/26/2022 urina lysis , dipst ick Color Pale Yellow Not Available In-Office Order Internal Use Only DO Not Attach Compendium DO Not Attach Compendium, Do Not Delete/merge, [id number] 07/26/2022 15:27:09 10/18/1910/18/2022 COMPR EHENS YOMAIRA METAB OLIC PANL glucose 86 mg/dL (70-99 ) Not Available [facility] (Centralized Electronic Ordering - All Locations) Patient Can Go To The Location Of Their Choice, 10/18/2022 14:57:38 10/18/1910/18/2022 COMPR EHENS YOMAIRA METAB OLIC PANL BUN 6 mg/dL (6-20) Not Available [facility] (Centralized Electronic Ordering - All Locations) Patient Can Go To The Location Of Their Choice, 10/18/2022 14:57:38 10/18/1910/18/2022 COMPR EHENS YOMAIRA METAB OLIC PANL creatinine 1.1 mg/dL (0.7-1 .2) Not Available [facility] (Centralized Electronic Ordering - All Locations) Patient Can Go To The Location Of Their Choice, 10/18/2022 14:57:38 10/18/1910/18/2022 COMPR EHENS YOMAIRA METAB OLIC PANL sodium 142 mmol/ L (133-1 45) Not Available [facility] (Centralized Electronic Ordering - All Locations) Patient Can Go To The Location Of Their Choice, 10/18/2022 14:57:38 10/18/1910/18/2022 COMPR EHENS YOMAIRA METAB OLIC PANL potassium 4.2 mmol/ L (3.6-5 .2) Not Available [facility] (Centralized Electronic Ordering - All Locations) Patient Can Go To The Location Of Their Choice, 10/18/2022 14:57:38 10/18/1910/18/2022 COMPR EHENS YOMAIRA METAB OLIC PANL chloride 103 mmol/ L (98-10 7) Not Available [facility] (Centralized Electronic Ordering - All Locations) Patient Can Go To The Location Of Their Choice, 10/18/2022 14:57:38 10/18/19 23 10/18/2022 COMPR EHENS YOMAIRA METAB OLIC PANL bicarbonate 33 mmol/ L (22-29 ) high Not Available [facility] (Centralized Electronic Ordering - All Locations) Patient Can Go To The Location Of Their Choice, 10/18/2022 14:57:38 10/18/1910/18/2022 COMPR EHENS YOMAIRA METAB OLIC PANL anion gap 6 (4-17) Not Available [facility] (Centralized Electronic Ordering - All Locations) Patient Can Go To The Location Of Their Choice, 10/18/2022 14:57:38 10/18/1910/18/2022 COMPR EHENS YOMAIRA METAB OLIC PANL albumin 4.8 gm/dL (3.4-4 .8) Not Available [facility] (Centralized Electronic Ordering - All Locations) Patient Can Go To The Location Of Their Choice, 10/18/2022 14:57:38 10/18/1910/18/2022 COMPR EHENS YOMAIRA METAB OLIC PANL calcium 9.3 mg/dL (8.6-1 0.5) Not Available [facility] (Centralized Electronic Ordering - All Locations) Patient Can Go To The Location Of Their Choice, 10/18/2022 14:57:38 10/18/1910/18/2022 COMPR EHENS YOMAIRA METAB OLIC PANL bilirubin,to grant 0.5 mg/dL (0-1.2 ) Not Available [facility] (Centralized Electronic Ordering - All Locations) Patient Can Go To The Location Of Their Choice, 10/18/2022 14:57:38 10/18/1910/18/2022 COMPR EHENS YOMAIRA METAB OLIC PANL total protein 6.9 gm/dL (6.2-8 .2) Not Available [facility] (Centralized Electronic Ordering - All Locations) Patient Can Go To The Location Of Their Choice, 10/18/2022 14:57:38 10/18/1910/18/2022 COMPR EHENS YOMAIRA METAB OLIC PANL Ag ratio 2.3 Not Available [facility] (Centralized Electronic Ordering - All Locations) Patient Can Go To The Location Of Their Choice, 10/18/2022 14:57:38 10/18/19 23 10/18/2022 COMPR EHENS YOMAIRA METAB OLIC PANL AST 33 U/L (0-40) Not Available [facility] (Centralized Electronic Ordering - All Locations) Patient Can Go To The Location Of Their Choice, 10/18/2022 14:57:38 10/18/1910/18/2022 COMPR EHENS YOMAIRA METAB OLIC PANL alk phos 66 U/L (40-12 9) Not Available [facility] (Centralized Electronic Ordering - All Locations) Patient Can Go To The Location Of Their Choice, 10/18/2022 14:57:38 10/18/1910/18/2022 COMPR EHENS YOMAIRA METAB OLIC PANL ALT 14 U/L (0-41) Not Available [facility] (Centralized Electronic Ordering - All Locations) Patient Can Go To The Location Of Their Choice, 10/18/2022 14:57:38 10/18/1910/18/2022 COMPR EHENS YOMAIRA METAB OLIC PANL estimated GFR creatinine 89 mL/mi n/1.7 3_M2 Creat inine based estim ated glome rular filtr ation (eGFR ) in adult s is calcu lated using the Natio nal Kidne y Found ation recom mark d 2020 CKD-E PI equat ion. Estim ates GFR from serum creat inine , age and sex. Not Available [facility] (Centralized Electronic Ordering - All Locations) Patient Can Go To The Location Of Their Choice, 10/18/2022 14:57:38 10/18/1910/18/2022 LIPID PANEL cholesterol, total 228 mg/dL (<200) high Not Available [facility] (Centralized Electronic Ordering - All Locations) Patient Can Go To The Location Of Their Choice, 10/18/2022 14:57:40 10/18/1910/18/2022 LIPID PANEL triglyceride 135 mg/dL (<150) Not Available [facility] (Centralized Electronic Ordering - All Locations) Patient Can Go To The Location Of Their Choice, 10/18/2022 14:57:40 10/18/1910/18/2022 LIPID PANEL HDL chol 43 mg/dL (>39) Not Available [facility] (Centralized Electronic Ordering - All Locations) Patient Can Go To The Location Of Their Choice, 10/18/2022 14:57:40 10/18/1910/18/2022 LIPID PANEL LDL cholesterol, calculated 158 mg/dL (0-130 ) high Not Available [facility] (Centralized Electronic Ordering - All Locations) Patient Can Go To The Location Of Their Choice, [facility] 10/18/2022 14:57:40 10/18/1910/18/2022 LIPID PANEL non HDL cholesterol (calc) 185 mg/dL (<160) high Not Available [facility] (Centralized Electronic Ordering - All Locations) Patient Can Go To The Location Of Their Choice, [facility] 10/18/2022 14:57:40 10/18/1910/19/2022 ANTI- HEPAT ITIS C anti-hepatit is C (neg) normal NEGAT YOMAIRA Refer ence range : Negat yomaira This test was perfo rmed on the Abbot t Archi tect immun oassa y syste m. Not Available [facility] (Centralized Electronic Ordering - All Locations) Patient Can Go To The Location Of Their Choice, [facility] 10/19/2022 11:25:41 Result Notes None recorded. Problems Name Problem SNOMED Code Status Onset Date Resolution Date Notes Provider Name and Address Organization Details Recorded Time Swelling of testicle 940154351 Active Not Available [facility] 14:45:12 Ultrasou nd scan abnormal 148564226 Active Not Available [facility] 14:45:12 Hyperlip idemia 94677864 Completed 08/11/2019 Edda Lew PA-C [address], [place], [address] , [facility] 9 20:45:53 Hemorrho ids 60124683 Active Not Available [facility] 14:45:12 Bronchos pasm 2919019 Completed 200704/21/2014 RECORDED 07/20/20 08 8:10AM BY MARTHA CHEN MA, ANNOTATI ON/[facility] 6 14:48:53 Disorder of skin 89137917 Completed 200704/21/2014 RECORDED 07/20/20 08 9:11AM BY ALEJO DENSON, GRAYSONATI ON/ADDEN DUM Ivonne Ramirezand ro null, [facility] 6 14:48:53 Enthesop athy of hip region 75561997 Completed 200704/21/2014 RECORDED 07/20/20 08 8:11AM BY MARTHA CHEN MA, ANNOTATI ON/ADDEN DUM Ivonne Vale ro null, [facility] 6 14:48:53 Fever 380291120 Completed 200704/21/2014 RECORDED 07/20/20 08 8:10AM BY MARTHA CHEN MA, ANNOTATI ON/ADDEN DUM Ivonne Vale ro null, [facility] 6 14:48:53 General examinat ion of patient Completed 200704/21/2014 RECORDED 07/20/20 08 8:10AM BY MARTHA CHEN MA, ANNOTNAEEM ON/ADDEN DUM Ivonne Vale ro null, [facility] 6 14:48:53 Administ ration of diphther ia and tetanus vaccine Completed 200704/21/2014 RECORDED 07/20/20 08 8:11AM BY MARTHA CHEN MA, CRISTINE ON/ADDEN DUM Ivonne Vale ro null, [facility] 6 14:48:53 Acute sinusiti s 05724596 Completed 200704/21/2014 RECORDED 07/20/20 08 8:10AM BY MARTHA CHEN MA, CRISTINE ON/ADDEN DUM Ivonne Vale ro null, [facility] 6 14:48:53 Temporom andibula r joint disorder 31698283 Completed 200704/21/2014 RECORDED 07/20/20 08 9:11AM BY ALEJO DENSON, CRISTINE ON/ADDEN DUM Ivonne FioreAlearturoand ro null, [facility] 6 14:48:53 Bronchos pasm 0724763 Completed 200705/11/2014 RECORDED 07/20/20 08 8:10AM BY MARTHA CHEN MA, ANNOTATI ON/ADDEN DUM Ivonne FioreAlessand ro null, [facility] 6 14:48:53 Disorder of skin 79450999 Completed 200705/11/2014 RECORDED 07/20/20 08 9:11AM BY ALEJO DENSON, CRISTINE ON/ADDEN DUM Ivonne FioreAlearturoand ro null, [facility] 6 14:48:53 Enthesop athy of hip region 09898819 Completed 200705/11/2014 RECORDED 07/20/20 08 8:11AM BY MARTHA CEHN MA, ANNOTATI ON/ADDEN DUM Ivonne Ramirezand ro null, [facility] 6 14:48:53 Fever 737428922 Completed 200705/11/2014 RECORDED 07/20/20 08 8:10AM BY MARTHA CHEN MA, CRISTINE ON/ADDEN DUM Ivonne FioreAlewero ro null, [facility] 6 14:48:53 General examinat ion of patient Completed 200705/11/2014 RECORDED 07/20/20 08 8:10AM BY MARTHA CHEN MA, CRISTINE ON/ADDEN DUM Ivonne FioreAlearturoand ro null, [facility] 6 14:48:53 Administ ration of diphther ia and tetanus vaccine Completed 200705/11/2014 RECORDED 07/20/20 08 8:11AM BY MARTHA CHEN MA, ANNOTNAEEM ON/ADDEN DUM Ivonne FioreAlessand ro null, [facility] 6 14:48:53 Acute sinusiti s 59372388 Completed 200705/11/2014 RECORDED 07/20/20 08 8:10AM BY MRATHA CHEN MA, ANNOTATI ON/ADDEN DUM Ivonne D'Alessand ro null, [facility] 6 14:48:53 Temporom andibula r joint disorder 34716526 Completed 200705/11/2014 RECORDED 07/20/20 08 9:11AM BY ALEJO DENSON, ANNOTATI ON/ADDEN DUM Ivonne D'Alessand ro null, [facility] 6 14:48:53 Shoulder joint pain 604240366 Completed 201004/21/2014 RECORDED 10/28/19 11 3:46PM BY CARLOS A AGUILAR, ANNOTATI ON/ADDEN DUM Ivonne D'Alessand ro null, [facility] 6 14:48:53 Viral disease 37817954 Completed 201004/21/2014 RECORDED 10/28/19 11 3:46PM BY CARLOS A AGUILAR, GRAYSONATI ON/ADDEN DUM Ivonne D'Alessand ro null, [facility] 6 14:48:53 Shoulder joint pain 546707912 Completed 201005/11/2014 RECORDED 10/28/19 11 3:46PM BY CARLOS A AGUILAR, ANNOTATI ON/ADDEN DUM Ivonne D'Alessand ro null, [facility] 6 14:48:53 Viral disease 65435543 Completed 201005/11/2014 RECORDED 10/28/19 11 3:46PM BY GRAYSON ERAZOATI ON/ADDEN DUM Ivonne D'Alessand ro null, [facility] 6 14:48:53 Acute upper respirat ory infectio n 48901806 Completed 201304/21/2014 RECORDED 11/06/19 14 12:41PM BY PHIL LATHAM MA, ANNOTATI ON/ADDEN DUM Ivonne D'Alessand ro null, [facility] 6 14:48:53 Cough 56019064 Completed 201304/21/2014 STORY: POSSIBLE EARLY SINUS INFXN, AT RISK FROM DUST EXPOSURE ; RECORDED 11/06/19 14 12:41PM BY PHIL LATHAM MA, ANNOTATI ON/ADDEN DUM Ivonne [place]'Alessand ro null, [facility] 6 14:48:53 Lipoma 99076606 Completed 201304/21/2014 RECORDED 11/06/19 14 12:41PM BY PHIL LATHAM MA, ANNOTATI ON/ADDEN DUM Jenny Pandya MA null, [facility] 7 15:31:06 Closed fracture of metatars al bone 43762494 Completed 201304/21/2014 RECORDED 11/06/19 14 12:41PM BY PHIL LATHAM MA, ANNOTATI ON/ADDEN DUM Ivonne [place]'Alewero ro null, [facility] 6 14:48:53 Adult health examinat ion Completed 201304/21/2014 RECORDED 11/06/19 14 12:41PM BY PHIL LATHAM MA, ANNOTATI ON/ADDEN DUM Jenny Pandya MA null, [facility] 7 15:30:27 Acute upper respirat ory infectio n 17213127 Completed 201305/11/2014 RECORDED 11/06/19 14 12:41PM BY PHIL LATHAM MA, ANNOTATI ON/ADDEN DUM Ivonne [place]'Ramon ro null, [facility] 6 14:48:53 Cough 71331474 Completed 201305/11/2014 STORY: POSSIBLE EARLY SINUS INFXN, AT RISK FROM DUST EXPOSURE ; RECORDED 11/06/19 14 12:41PM BY PHIL LATHAM MA, ANNOTATI ON/ADDEN DUM Ivonne [place]'Alewero ro null, [facility] 6 14:48:53 Closed fracture of metatars al bone 61972987 Completed 201305/11/2014 RECORDED 11/06/19 14 12:41PM BY PHIL LATHAM MA, ANNOTATI ON/ADDEN DUM Ivonne bar, [facility] 6 14:48:53 Acute pharyngi tis 486132753 Completed 201304/21/2014 RECORDED 02/14/20 14 2:40PM BY VENU JAMES MA, ANNOTATI ON/ADDEN RUPALI matos null, [facility] 6 14:48:53 Disorder of bone and articula r cartilag e 325140316 Active 2013 Not Available [facility] 1 14:45:12 Backache 681527688 Active 2013 Not Available [facility] 1 14:45:12 Adult health examinat ion Completed 201303/12/2017 RECORDED 02/14/20 14 2:41PM BY VENU JAMES MA, OFFICE VISIT Jenny bar, [facility] 7 15:30:27 Lipoma 73764520 Active 2013 Not Available [facility] 1 14:45:12 Alopecia 91988058 Completed 201308/11/2019 Edda Lew PA-C [address] [address], [place], [address] , [facility] 9 20:35:11 Patient status finding [id number] Completed 201303/12/2017 RECORDED 02/14/20 14 2:41PM BY VENU JAMES MA, OFFICE VISIT Jenny bar, [facility] 7 15:30:00 Patient status finding [id number] Completed 201304/21/2014 RECORDED 02/14/20 14 2:40PM BY VENU JAMES MA, ANNOTATI ON/[facility] Jenny bar, [facility] 7 15:30:00 Sciatica 03615135 Active 2013 [facility] Available [facility] 1 14:45:12 Chronic sinusiti s 50118925 Completed 201304/21/2014 IMPRESSI ON: ENCOURAG E REST AND HYDRATIO N. RTC IF PERSISTE NT OR WORSENIN G SYMPTOMS .; RECORDED 02/14/20 14 2:40PM BY VENU JAMES MA, GRAYSONATI ON/[facility] Ivonne bar, [facility] 6 14:48:53 Acute pharyngi tis 218248656 Completed 201305/11/2014 RECORDED 02/14/20 14 2:40PM BY VENU JAMES MA, ANNOTATI ON/[facility] Ivonne [place] matos null, [facility] 6 14:48:53 Chronic sinusiti s 40111958 Completed 201305/11/2014 IMPRESSI ON: ENCOURAG E REST AND HYDRATIO N. RTC IF PERSISTE NT OR WORSENIN G SYMPTOMS .; RECORDED 02/14/20 14 2:40PM BY VENU JAMES MA, GRAYSONATI ON/[facility] Ivonne matos null, [facility] 6 14:48:53 History of malignan t basal cell neoplasm of skin 586252956 Active 2018 Not Available [facility] 1 14:45:12 Male pattern alopecia 74114124 Active 2018 Not Available [facility] 1 14:45:12 Lumbosac ral radiculi tis 27419928 Active 2020 Edda Lew PA-C [address] [address], [place], [address] , [facility] 1 13:51:59 Pain of left knee joint 04148532725 4107 Active 2021 Edda Lew PA-C [address] [address], [place], [address] , [facility] 2 12:43:11 Lipoma of skin 863348165 Active 2021 Edda Lew PA-C [address] [address], [place], [address] , [facility] 2 12:53:50 Major depressi ve disorder 526540920 Active 2022 Edda Lew PA-C [address] [facility] [address], [place], [address] , [facility] 3 14:41:30 Problem Notes None recorded. Procedures Surgical History Date Name Laterality Status Provider Name and Address Organization Details Recorded Time excision of lipoma completed Eddatatiana Lew PA-C [address] [facility] [address], [place], [address], [facility] 08/05/2018 20:40:10 Imaging Results None recorded. Procedure [...] 8:33AM BY LOREE RIVERA MD, MEDICATI ON AUTO-LAAN CTIVATIO N; Not Available Not Available Not [...] Available Not Available Not Available hydrocort isone acetate 25 mg rectal supposito ry Insert 1 supposit ory twice a day by rectal route as directed for 14 days. 08/01 completed Not Available Not Available Not Available hydrocort [...] blood by Pulse oximetry Body temperature Systolic And Diastolic Provider Name and Address Organization Details Last Updated DateTime 2 186.69 cm 25.8 kg/m2 28713.2 9 g 60 /min 98 % 98 % 98.96 [degF] 127/79 mm[Hg] Porsha Piper MA [facility] 2 14:17:35 Date Recorded Body height Body mass index (BMI) Body weight Heart rate Oxygen saturation Oxygen saturation in Arterial blood by Pulse oximetry Body temperature Systolic And Diastolic Provider Name and Address Organization Details Last Updated DateTime 3 186.69 cm 25.8 kg/m2 85446.6 9 g 50 /min 99 % 99 % 98.3 [degF] 131/79 mm[Hg] Herminia Quan MA [facility] 3 14:15:13 Date Recorded Body height Body mass index (BMI) Body weight Heart rate Oxygen saturation Oxygen saturation in Arterial blood by Pulse oximetry Body temperature Systolic And Diastolic Provider Name and Address Organization Details Last Updated DateTime 2 186.69 cm 25.1 kg/m2 53654.3 3 g 52 /min 98 % 98 % 98.24 [degF] 116/68 mm[Hg] Aracelis Hennessy MA [facility] 2 14:11:22 Date Recorded Body height Body mass index (BMI) Body weight Heart rate Oxygen saturation Oxygen saturation in Arterial blood by Pulse oximetry Body temperature Systolic And Diastolic Provider Name and Address Organization Details Last Updated DateTime 2 186.69 cm 25.5 kg/m2 72749.1 g 51 /min 98 % 98 % 98.24 [degF] 113/69 mm[Hg] Aracelis Hennessy MA [facility] 2 10:57:16 Date Recorded Body height Body mass index (BMI) Body weight Heart rate Oxygen saturation Oxygen saturation in Arterial blood by Pulse oximetry Body temperature Systolic And Diastolic Provider Name and Address Organization Details Last Updated DateTime 2 186.69 cm 25.6 kg/m2 04609.2 g 59 /min 97 % 97 % 98.1 [degF] 128/74 mm[Hg] Herminia Quan MA [facility] 2 15:34:04 Social History Question Answer Notes LastModified by Organizat ion Details LastModified Time Tobacco Smoking Status Never Smoker CARLOS A Anderson [facility] 03/10/2016 14:19:37 Is Blood Transfusion Acceptable In An Emergency? No [email or web address] Information not available 03/10/2016 What Is Your Level Of Caffeine Consumption? Moderate Information not available 10/23/2022 How Much Tobacco Do You Chew? None Information not available 10/07/2020 What Type Of Diet Are You Following? REGULAR Information not available 03/10/2016 Which Illicit Or Recreational Drugs Have You Used? None Information not available 10/07/2020 When Did You Quit Smoking? 0 N/a Information not available 10/07/2020 Live Alone Or With Others? With Others Information not available 07/06/2022 Do You Take Precautions To Prevent Distracted Driving? Yes [email or web address] Information not available 03/10/2016 How Often Do You Need To Have Someone Help You When You Read Instructions, Pamphlets, Or Other Written Material From Your Doctor Or Pharmacy? Sometimes [email or web address] Information not available 10/10/2021 Have You Served [...] Individual Who Tested Positive For COVID-19? Yes [email or web address] Information not available 10/10/2021 *AWV ONLY* Are [...] How Many Children Do You Have? 2 [email or web address] Information not available 03/10/2016 What Is Your Current Pack Years? 0 N/a Information not available 10/07/2020 Do You Use Protection During Sex? No [email or web address] Information not available 10/10/2021 Do You Use Your Seat Belt Or Car Seat Routinely? Yes [email or web address] Information not available 10/10/2021 Seat Belts Used Routinely Yes Information not available 07/06/2022 Are You Sexually Active? Yes [email or web address] Information not available 03/10/2016 Smoke Alarm In Home Yes Information not available 07/06/2022 Do You Have Smoke And Carbon Monoxide Detectors In Your Home? Yes [email or web address] Information not available 10/10/2021 At What Age Did You Start Smoking Tobacco? 0 Information not available 10/07/2020 Are You Passively Exposed To Smoke? No Information no t available 10/07/2020 How Much Tobacco Do You Smoke? No Information not available 10/07/2020 Do You Use Sunscreen Routinely? Yes [email or web address] Information not available 03/10/2016 How Many Years Have You Smoked Tobacco? 0 Information not available 10/07/2020 Sex: Unknown Functional Status Question Answer Note LastModified by Organizat ion Details LastModified Time Do you use any illicit or recreational drugs? No Information not available 07/06/2022 Do you or have you ever used any other forms of tobacco or nicotine? No Information not available 07/06/2022 What is your level of alcohol consumption? Occasional [email or web address] Information not available 03/10/2016 Do you or have you ever used smokeless tobacco? Never used smokeless tobacco [email or web address] Information not available 10/10/2021 Are you currently employed? Yes Information not available 03/10/2016 Are you able to walk independently without assistance or assistive devices? [email or web address] Information not available 07/06/2022 Are you able to care for yourself independently? 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 Never used electronic cigarettes Information not available 07/06/2022 What is your exercise level? Heavy plays [...] Time Td (adult) 3 completed Flory bar [facility] 04/05/2021 14:39:03 COVID-19, mRNA, LNP-S, PF, 30 mcg/0.3 mL dose 1 completed CARLOS A Escobar [facility] 12/26/2021 14:05:44 COVID-19, mRNA, LNP-S, PF, 30 mcg/0.3 mL dose 1 completed CARLOS A Escobar, [facility] 12/26/2021 14:05:44 Influenza, split virus, quadrivalent , PF 8 cancelled patient objection Not Available [facility] 10/18/2019 02:22:16 Influenza, split virus, quadrivalent , PF 9 cancelled patient objection Not Available [facility] 10/18/2019 02:22:10 Tdap 2 completed CARLOS A Lara [facility] 10/10/2021 15:22:13 Tdap 2 completed Flory bar [facility] 04/05/2021 14:39:03 Past Encounters Encounter ID Performer Location Encounter Start Date Encounter Closed Date Diagnosis/Indication Diagnosis SNOMED-CT Code Diagnosis ICD10 Code Diagnosis IMO Codes Diagnosis Note [id number] [facility] [address] [place] [address] 05/03/2007 00:00:00 [id number] [facility] [address] [place] [address] 05/03/2007 00:00:00 [id number] [facility] [address] [place] [address] 05/03/2007 00:00:00 [id number] [facility] [address] [place] [address] 09/18/2007 00:00:00 [id number] auto[facility] erce [address] [place] [address] 09/18/2007 00:00:00 [id number] [facility] [address] [place] [address] 09/18/2007 00:00:00 [id number] [facility] erce [address] [place] [address] 09/18/2007 00:00:00 [id number] [facility] [address] [place] [address] 10/03/2007 00:00:00 [id number] [facility] erce [address] [place] [address] 10/03/2007 00:00:00 [id number] [facility] [address] [place] [address] 10/03/2007 00:00:00 [id number] [facility] [address] [place] [address] 10/03/2007 00:00:00 [id number] [facility] erce [address] [place] [address] 10/22/2007 00:00:00 [id number] [facility] [address] [place] [address] 10/22/2007 00:00:00 [id number] [facility] [address] [place] [address] 10/22/2007 00:00:00 [id number] [facility] erce [address] [place] [address] 10/22/2007 00:00:00 [id number] auto[facility] erce [address] [place] [address] 07/20/2008 00:00:00 [id number] auto[facility] erce [address] [place] [address] 07/20/2008 00:00:00 [id number] auto[facility] erce [address] [place] [address] 07/20/2008 00:00:00 [id number] auto[facility] erce [address] [place] [address] 07/20/2008 00:00:00 [id number] [facility] erce [address] [place] [address] 12/15/2008 00:00:00 [id number] [facility] erce [address] [place] [address] 12/15/2008 00:00:00 [id number] [facility] erce [address] [place] [address] 12/15/2008 00:00:00 [id number] [facility]Comm erce [address] [place] [address] 12/15/2008 00:00:00 [id number] [facility] erce [address] [place] [address] 06/10/2010 00:00:00 [id number] [facility] erce [address] [place] [address] 06/10/2010 00:00:00 [id number] auto[facility]Comm erce [address] [place] [address] 06/10/2010 00:00:00 [id number] auto[facility]Comm erce [address] [place] [address] 10/28/2010 00:00:00 [id number] auto[facility]Comm erce [address] [place] [address] 11/06/2013 00:00:00 [id number] [facility] erce [address] [place] [address] 02/13/2014 00:00:00 [id number] [facility] [place] [address] [place] [address],[address] [place] [address] 02/13/2014 00:00:00 [id number] Edda Lew PA-C Main Office [address] [address] [place] [address] 01/27/2016 15:12:39 01/27/2016 16:12:42 Swelling of testicle 712110032 N50.8 Adult heal th examination 832773933 Z00.00 [id number] Ivonne matos MD Main Office [address] [address] 03/10/2016 14:09:37 03/10/2016 15:27:42 Adult health examination 495708037 Z00.00 Hyperlipidemia 31593037 E78.5 Swelling of testicle 438 345864 N50.8 Alopecia 56862790 L65.9 pt on finasterid e 1.25 mg from hair loss specialist /mirella Hemorrhoids 45111913 K64 .9 [id number] Edda Lew PA-C Main Office [address] [address] [place] [address] 03/12/2017 15:08:52 03/12/2017 16:44:08 Adult health examination 171983831 Z00.00 Hyperlipidemia 38870572 E78.5 Alopecia 74086296 L65.9 on med from hair loss specialist /mirella Upper resp iratory infection 96930386 J06.9 [id number] Edda Lew PA-C Main Office [address] [address] [place] [address] 08/05/2018 15:21:25 08/05/2018 16:21:16 Adult health examination 480601904 Z00.00 Needs infl uenza immunization 980574198 Z23 Hyperlipidemia 80247811 E78.5 Alopecia 12562400 L65.9 on med from hair loss specialist /mirella [id number] Solomon Castellano MD Main Office [address] [address] [place] [address] 04/04/2019 13:37:29 04/04/2019 14:28:39 Strain of trapezius muscle 917101506 S46.811A likely musculoske letal. recommend heat, massage, cyclobenza wong, stretching as tolerated. if sx do not improve we can refer to PT/ spine. 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 Please provide patient with contact info to schedule their appointmen tone # email: [email or web address] Internal hemorrhoids 691 51380 K64.8 no sig straining or bleeding, but itches prn - no sig help c prepH - will give trial of steroid supp History of malignant basal cell neoplasm of skin 602774344 Z85.828 cont f/u c derm Male pattern alopecia 87 935743 L64.9 cont med as per psychology department chair Insomnia 393489043 G47.0 0 trial of melatonin prn [id number] Ciaran Nunes MD Main Office [address] [address] 08/01/2021 13:09:07 08/01/2021 13:54:14 Plantar wart of right foot 4579278094 1450397 B07.0 had seen derm last year - partially frozen off - will get re-eval -- cannot see [facility] - they do not accept his ins. Pain of bi lateral hip joints 7107354588 8963231 M25.551 see below Chronic low back pain 27 3320781 M54.50 see above - will check xrays and get pmr eval Lumbosacra l radiculitis 06603902 M54.17 trial of gbn - enrique at hs - start c 2 tabs hs, may be all you need Lipoma of skin 600019610 D17.30 has had others excised in past - has a few new lipomas - one enrique is bothering him in RLQ - will get back to gen sx [id number] Ciaran Nunes MD Main Office [address] [address] [place] [address] 10/10/2021 14:10:07 10/10/2021 15:22:24 Adult health examination 777203103 Z00.00 Influenza vaccination declined 174816100 Z28.21 Chronic low back pain 27 1451514 M54.50 seen by pmr - had lumbar mri - unsure of results, rec cont f/u -- no sig help c gbn cont turmeric & gluc / chond as dir Pain of bi lateral hip joints 5874370596 3665332 M25.551 stable, consider second opinion if worse Hyperlipidemia 19036870 E78.5 Male pattern alopecia 87 218577 L64.9 cont med as per psychology department chair Hepatitis C screening 41 1747766 Z11.59 Administra tion of diphtheria, pertussis, and tetanus vaccine 550653733 Z23 [id number] Ciaran Nunes MD Main Office [address] [address] [place] [address] 12/26/2021 13:46:25 12/26/2021 14:51:04 Major depressive disorder 526149286 F32.1 moderate on phq, mild on león - trial c celexa, encouraged pt to call the mental health # on the back of his ins card [id number] Ciaran Nunes MD Main Office [address] [address] 07/06/2022 10:46:34 07/06/2022 11:56:09 Hordeolum externum of lower eyelid of left eye 3620862490 48121 H00.015 ? Chalazia vs hordeolum - trial c abx ointment - if no better, then rec f/u c eye md Hyperlipidemia 58411119 E78.5 Pain of le ft knee joint 9143703516 30842 M25.562 seen by ortho - reviewed note - cont hep, cont f/u c ortho - ? may need mri Lipoma of skin 437430728 D17.30 has had others excised in past - has a few new lipomas - one enrique is bothering him in RLQ - will get back to gen sx 9. - pt missed eval several months ago - re-opened order and forwarded to [facility] Hepatitis C screening 41 3301296 Z11.59 [id number] Hernandez Plasencia MD Main Office [address] [address] 07/26/2022 15:14:43 07/26/2022 16:09:04 Dysuria 77959109 R30.0 [id number] Ciaran Nunes MD Main Office [address] [address] 10/23/2022 14:02:42 10/23/2022 15:00:27 Adult health examination 384709260 Z00.00 Screening for malignant neoplasm of colon 189868014 Z12.11 encouraged pt to call his insurance company to see if colonoscop y is covered for age > 45 History of malignant basal cell neoplasm of skin 656907699 Z85.828 cont f/u c derm Lipoma 92116521 D17.9 multiple on trunk, legs Major depr essive disorder 871802205 F32.1 moderate on phq, mild on león - trial c celexa, encouraged pt to call the mental health # on the back of his ins card 1.23 - better lately, cont med as dir, no see therapist Internal hemorrhoids 904 17896 K64.8 no sig straining or bleeding, but itches prn - no sig help c prepH - will give trial of steroid supp Health Concerns Section Related Observation LastModified by Organization Detai ls LastModified Time None Recorded Concern Status LastModified by Organization Details LastModified Time None Recorded Advance Directives Directive None Recorded Payers Insurance Date Sequence Insurance Name Policy Number Policy Sultana Covered Member ID Sultana Member ID Guarantor Name 03/06/2024 1 [place] [facility] Fam Cox [id number] Fam Cox 07/14/2021 1 [facility] - DIRECT - KETCHIKAN ZERO (HMO) Hailey Cox [id number] Fam Cox 07/14/2021 1 [facility] - DIRECT CONNECTORCARE TYPE II (HMO) [id number] Fam Snowdenin [id number] Fam Cox Notes Date Note Type Note Provider Name and Address Organization Details Recorded Time 10/10/2021 text/html Generic HPI TemplateReported by Patient here for annual pe. Edda Lew PA-C [address] [address], [place], [address], [facility] 10/10/2021 15:17:36 12/26/2021 text/html Anxiety/Depressi onRepor marco antonio by PatientHPIFor quality, patient reportsmood worseandincreased anxiety(no panic attacks). For context, patient reportsmajor life stressorsandfamily problems. For severity, patient reportsdenies suicidal ideations. For associated symptoms, patient reportsdenies homicidal ideations. Edda Lew PA-C [address] [address], [place], [address], [facility] 12/26/2021 14:48:59 07/06/2022 text/html ROS as noted in the HPI 42yo male presents with left eye pain and pruritis for [...] fevers. Normal blinking. Edda Lew PA-C [address] [address], [place], [address], [facility] [place] 07/06/2022 12:54:40 07/26/2022 text/html 42 year old male c/o burning on urination for past 4 days. No abdominal pressure/pain, frequency , urinary blood , fever, chills, penile discharge. Pt. reports some irritation on the urethra. U/a is normal. Pt. denies high risk sexual behavior. Grace Lew PA-C [address] [address], [place], [address], [facility] [place] 07/26/2022 16:48:27 10/23/2022 text/html Generic HPI TemplateReported by Patient here for annual pe. Edda Lew PA-C [address] [address], [place], [address], [facility] [place] 10/23/2022 15:04:47
[2025-07-15 11:07] LABS: MANUAL DIFF FLAG NO
[2025-07-15 11:22] LABS: Hematocrit 42.2 % (42.0-52.0); Hemoglobin 14.0 g/dl (14.0-18.0); Imm Gran Abs Auto 0.01 X10*3/uL (0.00-0.03); Imm Gran Pct Auto 0.2 % (0.0-0.4); Lymphocytes Absolute Auto 1.5 X10*3/uL (1.2-4.9); Mean Corpuscular HGB Conc 33.2 g/dl (31.0-36.0); Mean Corpuscular Hemoglobin 29.4 pg (27.0-33.0); Mean Corpuscular Volume 88.7 fL (80.0-98.0); NRBC Pct Auto 0.0 /100WBC (0.0-0.2); Platelet Count 183 X10*3/uL (160-400); Red Blood Count 4.76 X10*6/uL (4.60-5.80); White Blood Count 4.2 X10*3/uL (4.8-10.8)
[2025-07-15 11:23] LABS: NRBC Abs Auto 0.000 X10*3/uL (0.0-0.012)
[2025-07-15 11:56] LABS: Alanine Aminotransferase 28 U/L (0-40); Albumin Level 4.7 g/dL (3.5-5.0); Alkaline Phosphatase 76 U/L (39-117); Anion Gap 9 (12-20); Aspartate Amino Transferase 45 U/L (5-37); Blood Urea Nitrogen 22 mg/dL (9-16); Calcium 9.4 mg/dL (8.4-10.2); Carbon Dioxide 32 mmol/L (22-29); Chloride 106 mmol/L (96-108); Cholesterol 206 mg/dL (<200); Estimated Glomerular Filt Rate > 60; HDL Cholesterol 47 mg/dL (>40); Lipase 35 U/L (8-78); Potassium 4.2 mmol/L (3.3-5.1); Sodium 143 mmol/L (135-145); Total Protein 7.2 g/dL (6.5-8.0); Triglycerides 99 mg/dL (<150)
[2025-07-15 12:09] LABS: Prostate Specific Antigen 0.27 ng/mL (<0.05-4.0)
== END 2025-07-15 09:18 | disposition home or self-care (01) ==
LOC: HO.WFDLDS 09:17
PROVIDERS: Referring Provider Nurse Practitioner Family; Visit Provider Physician Assistant Medical
DX: Z12.5 Encounter for screening for malignant neoplasm of prostate (principal); K76.0 Fatty (change of) liver, not elsewhere classified; E78.5 Hyperlipidemia, unspecified; R10.9 Unspecified abdominal pain
CPT/HCPCS: 36415; 80053; 80061; 83690; 84153; 85025

== ENCOUNTER 2025-08-07 14:26 | Outpatient (REF) | payer OTHER, SELFPAY ==
--- OUTSIDE RECORDS SUMMARY | 2025-08-07 16:06 | XMS_ITS | Clinical Summary ---
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
--- OUTSIDE RECORDS SUMMARY | 2025-08-07 16:06 | XMS_ITS | Data Portability ---
Author Organization [facility], Main Office Address [address] [place] [address] Care Team Providers Care Title Manager Name Role Phone TAEJUAN Referring Provider EDDA LEW Primary Care Provider Assessment No assessment recorded. Plan of Treatment Reminders Order Date Submit Date Provider Last Modified By Organization Details Last Modified Time Details Appointments None record ed. Lab urinal ysis, dipsti ck 2021 [email or web address] In-Office Order, Internal Use Only DO Not Attach Compendium DO Not Attach Compendium, Do Not Delete/merge, [id number] 15:51:30 CT + NG DNA, PCR, urine 2021 [facility], [address], [place], [address], 16:29:37 hepati tis C virus Ab, serum 2021 [facility], [address], [place], [address], 3 11:25:41 lipid panel, serum 2021 [facility], [address], [address], [place], [address], 3 14:57:40 CMP, serum or plasma 2021 [facility], [address], [address], [place], [address], 3 14:57:38 hepati tis C virus Ab, serum 2021 022 [facility], [address], [address], [place], [address], 2 15:14:56 lipid panel, serum 2021 022 [email or web address], [address], [address], [place], [address], 2 09:20:48 CMP, serum or plasma 2021 022 [email or web address], [address], [address], [place], [address], 2 09:20:47 Referral genera l surgeo n referr al 2022 023 amane Jesse Jama MD, [address] [place] [address] , [address], [place], [address], 3 09:49:38 dermat ologis t referr al 2022 023 [email or web address] Not available 3 11:58:34 gastro entero logist referr thomas - Needs colon cancer screen ing 2022 023 [email or web address] [facility], [address] [place], [address], 3 16:02:15 urolog ist referr al - Urethr itis. 2021 022 [email or web address] [facility], [address] [facility], [place], [address], 2 09:52:09 ophtha lmolog ist referr al 2021 022 [email or web address] Not available 09:17:59 Procedures colono scopy screen ing (PROC) 2022 023 [email or web address] In-Office Order, Internal Use Only DO Not Attach Compendium DO Not Attach Compendium, Do Not Delete/merge, [id number] 08:40:27 Surgeries None record ed. Imaging None record ed. Medication Orders hydroc ortiso ne 2.5 % topica l cream with perine al applic ator 2022 023 [facility] [address] [facility], [address] [place], [address], 14:56:56 erythr omycin 5 mg/gra m (0.5 %) eye ointme nt 2021 [email or web address] [id number], [address] [place], [address], 15:32:04 citalo pram 20 mg tablet 2021 022 [facility] [address], [address] [place], [address], 14:42:12 Patient TargetsNo targets recorded. Patient Instructions Encounter Date Encounter Id Patient Instructions Last Modified By Organization Details Last Modified Time 10/10/2021 [id number] Well Visit, Ages 18 to 65: Care [...] medication. pmadden Not available 10/10/2021 15:07:45 12/26/2021 [id number] Preventing Depression From Coming Back: Care Instructions [...] medication. 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 Referring Physician: Grace eLw, Internal Medicine, Encounter Date: 07/26/2022 Policy Checker Referral for Screening for malignant neoplasm of colon Needs colon cancer screening Referring Physician: Edda Lew, Internal Medicine, Encounter Date: 10/23/2022 Supervisor Heat Treating Referral for H istory of malignant basal [...] Go To The Location Of Their Choice, [id number] 07/27/2022 16:29:37 07/26/2007/27/2022 URINE CHLAM YDIA GC [...] Disea se Contr ol and Preve ntion ([facility]) recom mends confi rmato ry retes ting using cultu re or a diffe rent nucle ic acid ampli ficat ion test when posit yomaira resul ts occur , if indic ated. Not Available [facility] (Centralized Electronic Ordering - All Locations) Patient Can Go To The Location Of Their Choice, [id number] 07/27/2022 16:29:37 07/26/2007/26/2022 urina lysis , dipst ick Leukocytes Negati ve Not Available In-Office Order Internal Use Only DO Not Attach Compendium DO Not Attach Compendium, Do Not Delete/merge, [id number] 07/26/2022 15:27:09 07/26/20 22 07/26/2022 urina lysis , dipst ick Nitritie negati ve Not Available In-Office Order Internal Use Only DO Not Attach Compendium DO Not Attach Compendium, Do Not Delete/merge, [id number] 07/26/2022 15:27:09 07/26/20 22 07/26/2022 urina lysis , dipst ick Urobilinogen .2 Not Available In-Of fice Order Internal Use Only DO Not Attach Compendium DO Not Attach Compendium, Do Not Delete/merge, [id number] 07/26/2022 15:27:09 07/26/20 22 07/26/2022 urina lysis , dipst ick Protein Negati ve Not Available In-Office Order Internal Use Only DO Not Attach Compendium DO Not Attach Compendium, Do Not Delete/merge, 07/26/2022 15:27:09 07/26/2007/26/2022 urina lysis , dipst ick pH 6.0 Not Available In-Office Order Internal Use Only DO Not Attach Compendium DO Not Attach Compendium, Do Not Delete/merge, [id number] 07/26/2022 15:27:09 07/26/2007/26/2022 urina lysis , dipst ick Blood Negati ve Not Available In-Office Order Internal Use Only DO Not Attach Compendium DO Not Attach Compendium, Do Not Delete/merge, 07/26/2022 15:27:09 07/26/20 22 07/26/2022 urina lysis , dipst ick Specific [place] 1.015 Not Available In-Off ice Order Internal Use Only DO Not Attach Compendium DO Not Attach Compendium, Do Not Delete/merge, [id number] 07/26/2022 15:27:09 07/26/20 22 07/26/2022 urina lysis , dipst ick Ketone Negati ve Not Available In-Office Order Internal Use Only DO Not Attach Compendium DO Not Attach Compendium, Do Not Delete/merge, 07/26/2022 15:27:09 07/26/2007/26/2022 urina lysis , dipst ick Bilirubin Negati ve Not Available In-Office Order Internal Use Only DO Not Attach Compendium DO Not Attach Compendium, Do Not Delete/merge, [id number] 07/26/2022 15:27:09 07/26/20 22 07/26/2022 urina lysis [...] DO Not Attach Compendium, Do Not Delete/merge, [id number] 07/26/2022 15:27:09 10/18/1910/18/2022 COMPR EHENS YOMAIRA METAB [...] Natio nal Kidne y Found ation recom makr d 2020 CKD-E PI equat ion. Estim [...] Go To The Location Of Their Choice, [facility] 10/18/2022 14:57:40 10/18/1910/18/2022 LIPID PANEL non HDL cholesterol (calc) 185 mg/dL (<160) high Not Available [facility] (Centralized Electronic Ordering - All Locations) Patient Can Go To The Location Of Their Choice, [facility] 10/18/2022 14:57:40 10/18/1910/19/2022 ANTI- HEPAT ITIS C anti-hepatit is C (neg) normal NEGAT YOMAIRA Refer ence range : Negat yomaira This test was perfo rmed on the Abbot t Archi tect immun oassa y syste m. Not Available [facility] (Centralized Electronic Ordering - All Locations) Patient Can Go To The Location Of Their Choice, [facility] 10/19/2022 11:25:41 Result Notes None recorded. Problems Name Problem SNOMED Code Status Onset Date Resolution Date Notes Provider Name and Address Organization Details Recorded Time Swelling of testicle 431993308 Active Not Available [facility] 14:45:12 Ultrasou nd scan abnormal 517552769 Active Not Available [facility] 14:45:12 Hyperlip idemia 31265675 Completed 08/11/2019 Edda Lew PA-C [address], [place], [address] , [facility] 9 20:45:53 Hemorrho ids 54244994 Active Not Available [facility] 14:45:12 Bronchos pasm 3907083 Completed 200704/21/2014 RECORDED 07/20/20 08 8:10AM BY MARTHA CHEN MA, ANNOTATI ON/BERNABE bar [facility] 6 14:48:53 Disorder of skin 82214308 Completed 200704/21/2014 RECORDED 07/20/20 08 9:11AM BY ALEJO DENSON, GRAYSONATI ON/ADDEN DUM Ivonne Ramirezand ro null, [facility] 6 14:48:53 Enthesop athy of hip region 39652881 Completed 200704/21/2014 RECORDED 07/20/20 08 8:11AM BY MARTHA CHEN MA, ANNOTATI ON/ADDEN DUM Ivonne aVle ro null, [facility] 6 14:48:53 Fever 186535479 Completed 200704/21/2014 RECORDED 07/20/20 08 8:10AM BY MARTHA CHEN MA, ANNOTATI ON/ADDEN DUM Ivonne Vale ro null, [facility] 6 14:48:53 General examinat ion of patient Completed 200704/21/2014 RECORDED 07/20/20 08 8:10AM BY MARTHA CHEN MA, ANNOTNAEEM ON/ADDEN DUM Ivonne Vale ro null, [facility] 6 14:48:53 Administ ration of diphther ia and tetanus vaccine Completed 200704/21/2014 RECORDED 07/20/20 08 8:11AM BY MARTHA CHEN MA, CRISTINE ON/ADDEN DUM Ivonne Vale ro null, [facility] 6 14:48:53 Acute sinusiti s 82375114 Completed 200704/21/2014 RECORDED 07/20/20 08 8:10AM BY MARTHA CHEN MA, CRISTINE ON/ADDEN DUM Ivonne Vale ro null, [facility] 6 14:48:53 Temporom andibula r joint disorder 22694212 Completed 200704/21/2014 RECORDED 07/20/20 08 9:11AM BY ALEJO DENSON, CRISTINE ON/ADDEN DUM Ivonne FioreAlearturoand ro null, [facility] 6 14:48:53 Bronchos pasm 7759537 Completed 200705/11/2014 RECORDED 07/20/20 08 8:10AM BY MARTHA CHEN MA, ANNOTATI ON/ADDEN DUM Ivonne FioreAlessand ro null, [facility] 6 14:48:53 Disorder of skin 12123742 Completed 200705/11/2014 RECORDED 07/20/20 08 9:11AM BY ALEJO DENSON, CRISTINE ON/ADDEN DUM Ivonne FioreAlearturoand ro null, [facility] 6 14:48:53 Enthesop athy of hip region 82369699 Completed 200705/11/2014 RECORDED 07/20/20 08 8:11AM BY MARTHA CHEN MA, ANNOTATI ON/ADDEN DUM Ivonne Ramirezand ro null, [facility] 6 14:48:53 Fever 389044829 Completed 200705/11/2014 RECORDED 07/20/20 08 8:10AM BY MARTHA CHEN MA, CRISTINE ON/ADDEN DUM Ivonne FioreAlewero ro null, [facility] 6 14:48:53 General examinat ion of patient Completed 200705/11/2014 RECORDED 07/20/20 08 8:10AM BY MARTHA CHEN MA, CRISTINE ON/ADDEN DUM Ivonne FioreAlearturoand ro null, [facility] 6 14:48:53 Administ ration of diphther ia and tetanus vaccine Completed 200705/11/2014 RECORDED 07/20/20 08 8:11AM BY MARTHA CHEN MA, ANNOTNAEEM ON/ADDEN DUM Ivonne FioreAlessand ro null, [facility] 6 14:48:53 Acute sinusiti s 48289835 Completed 200705/11/2014 RECORDED 07/20/20 08 8:10AM BY MARTHA CHEN MA, ANNOTATI ON/ADDEN DUM Ivonne D'Alessand ro null, [facility] 6 14:48:53 Temporom andibula r joint disorder 13469994 Completed 200705/11/2014 RECORDED 07/20/20 08 9:11AM BY ALEJO DENSON, ANNOTATI ON/ADDEN DUM Ivonne D'Alessand ro null, [facility] 6 14:48:53 Shoulder joint pain 529115394 Completed 201004/21/2014 RECORDED 10/28/19 11 3:46PM BY CARLOS A AGUILAR, ANNOTATI ON/ADDEN DUM Ivonne D'Alessand ro null, [facility] 6 14:48:53 Viral disease 36723522 Completed 201004/21/2014 RECORDED 10/28/19 11 3:46PM BY CARLOS A AGUILAR, GRAYSONATI ON/ADDEN DUM Ivonne D'Alessand ro null, [facility] 6 14:48:53 Shoulder joint pain 086249752 Completed 201005/11/2014 RECORDED 10/28/19 11 3:46PM BY CARLOS A AGUILAR, ANNOTATI ON/ADDEN DUM Ivonne D'Alessand ro null, [facility] 6 14:48:53 Viral disease 66669889 Completed 201005/11/2014 RECORDED 10/28/19 11 3:46PM BY GRAYSON ERAZOATI ON/ADDEN DUM Ivonne D'Alessand ro null, [facility] 6 14:48:53 Acute upper respirat ory infectio n 86379705 Completed 201304/21/2014 RECORDED 11/06/19 14 12:41PM BY PHIL LATHAM MA, ANNOTATI ON/ADDEN DUM Ivonne D'Alessand ro null, [facility] 6 14:48:53 Cough 44690687 Completed 201304/21/2014 STORY: POSSIBLE EARLY SINUS INFXN, AT RISK FROM DUST EXPOSURE ; RECORDED 11/06/19 14 12:41PM BY PHIL LATHAM MA, ANNOTATI ON/ADDEN DUM Ivonne [place]'Alessand ro null, [facility] 6 14:48:53 Lipoma 19339863 Completed 201304/21/2014 RECORDED 11/06/19 14 12:41PM BY PHIL LATHAM MA, ANNOTATI ON/ADDEN DUM Jenny Pandya MA null, [facility] 7 15:31:06 Closed fracture of metatars al bone 50153850 Completed 201304/21/2014 RECORDED 11/06/19 14 12:41PM BY PHIL LATHAM MA, ANNOTATI ON/ADDEN DUM Ivonne [place]'Alewero ro null, [facility] 6 14:48:53 Adult health examinat ion Completed 201304/21/2014 RECORDED 11/06/19 14 12:41PM BY PHIL LATHAM MA, ANNOTATI ON/ADDEN DUM Jenny Pandya MA null, [facility] 7 15:30:27 Acute upper respirat ory infectio n 68915233 Completed 201305/11/2014 RECORDED 11/06/19 14 12:41PM BY PHIL LATHAM MA, ANNOTATI ON/ADDEN DUM Ivonne [place]'Ramon ro null, [facility] 6 14:48:53 Cough 97891680 Completed 201305/11/2014 STORY: POSSIBLE EARLY SINUS INFXN, AT RISK FROM DUST EXPOSURE ; RECORDED 11/06/19 14 12:41PM BY PHIL LATHAM MA, ANNOTATI ON/ADDEN DUM Ivonne [place]'Alewero ro null, [facility] 6 14:48:53 Closed fracture of metatars al bone 45697786 Completed 201305/11/2014 RECORDED 11/06/19 14 12:41PM BY PHIL LATHAM MA, ANNOTATI ON/ADDEN DUM Ivonne bar, [facility] 6 14:48:53 Acute pharyngi tis 813222953 Completed 201304/21/2014 RECORDED 02/14/20 14 2:40PM BY VENU JAMES MA, ANNOTATI ON/ADDEN RUPALI matos null, [facility] 6 14:48:53 Disorder of bone and articula r cartilag e 602793779 Active 2013 Not Available [facility] 1 14:45:12 Backache 201383936 Active 2013 Not Available [facility] 1 14:45:12 Adult health examinat ion Completed 201303/12/2017 RECORDED 02/14/20 14 2:41PM BY VENU JAMES MA, OFFICE VISIT Jenny bar, [facility] 7 15:30:27 Lipoma 57624313 Active 2013 Not Available [facility] 1 14:45:12 Alopecia 74004372 Completed 201308/11/2019 Edda Lew PA-C [address] [address], [place], [address] , [facility] 9 20:35:11 Patient status finding 709635014 Completed 201303/12/2017 RECORDED 02/14/20 14 2:41PM BY VENU JAMES MA, OFFICE VISIT Jenny bar, [facility] 7 15:30:00 Patient status finding [id number] Completed 201304/21/2014 RECORDED 02/14/20 14 2:40PM BY VENU JAMES MA, ANNOTATI ON/[facility] Jenny bar, [facility] 7 15:30:00 Sciatica 00203115 Active 2013 Not Available [facility] 1 14:45:12 Chronic sinusiti s 29190098 Completed 201304/21/2014 IMPRESSI ON: ENCOURAG E REST AND HYDRATIO N. RTC IF PERSISTE NT OR WORSENIN G SYMPTOMS .; RECORDED 02/14/20 14 2:40PM BY VENU JAMES MA, GRAYSONATI ON/[facility] Ivonne bar, [facility] 6 14:48:53 Acute pharyngi tis 876167984 Completed 201305/11/2014 RECORDED 02/14/20 14 2:40PM BY VENU JAMES MA, ANNOTATI ON/[facility] Ivonne [place] matos null, [facility] 6 14:48:53 Chronic sinusiti s 78349633 Completed 201305/11/2014 IMPRESSI ON: ENCOURAG E REST AND HYDRATIO N. RTC IF PERSISTE NT OR WORSENIN G SYMPTOMS .; RECORDED 02/14/20 14 2:40PM BY VENU JAMES MA, GRAYSONATI ON/[facility] Ivonne matos null, [facility] 6 14:48:53 History of malignan t basal cell neoplasm of skin 632066233 Active 2018 Not Available [facility] 1 14:45:12 Male pattern alopecia 03244027 Active 2018 Not Available [facility] 1 14:45:12 Lumbosac ral radiculi tis 89824843 Active 2020 Edda Lew PA-C [address] [address], [place], [address] , [facility] 1 13:51:59 Pain of left knee joint 50602639197 4107 Active 2021 Edda Lew PA-C [address] [address], [place], [address] , [facility] 2 12:43:11 Lipoma of skin 580550988 Active 2021 Edda Lew PA-C [address] [address], [place], [address] , [facility] 2 12:53:50 Major depressi ve disorder 166761573 Active 2022 Edda Lew PA-C [address], [place], [address] , [facility] 3 14:41:30 Problem Notes None recorded. Procedures Surgical History Date Name Laterality Status Provider Name and Address Organization Details Recorded Time excision of lipoma completed Edda Lew PA-C [address], [place], [address], [facility] 08/05/2018 20:40:10 Imaging Results None recorded. Procedure Notes None recorded. Medical Equipment None Reported. Allergies No known drug allergies Medications Name Sig Start Date Stop Date Status Note LastModified by Organization Details LastModified Time dbg k-10 diclo 3% / baclo 2% / romy 6% / delano 10% cream Apply 1-3 grams to the affected area 3-4 times daily (LEFT KNEE/ RIGHT SHOULDER ) 07/26 completed PRN Not Available Not Available Not Available dbg - diclofena c 3% / baclofen2 % / gabapenti n 6% cream Apply 1-3 grams to the affected area 3-4 times daily (MULTIPL E SITES) active Not Available Not Available No t Available multivita min tablet Take 1 tablet [...] Updated DateTime 2 186.69 cm 25.8 kg/m2 96258.2 9 g 60 /min 98 % 98 % 98.96 [degF] 127/79 mm[Hg] Porsha Piper MA [facility] 2 14:17:35 Date Recorded Body height Body mass index (BMI) Body weight Heart rate Oxygen saturation Oxygen saturation in Arterial blood by Pulse oximetry Body temperature Systolic And Diastolic Provider Name and Address Organization Details Last Updated DateTime 3 186.69 cm 25.8 kg/m2 97868.6 9 g 50 /min 99 % 99 % 98.3 [degF] 131/79 mm[Hg] Herminia Quan MA [facility] 3 14:15:13 Date Recorded Body height Body mass index (BMI) Body weight Heart rate Oxygen saturation Oxygen saturation in Arterial blood by Pulse oximetry Body temperature Systolic And Diastolic Provider Name and Address Organization Details Last Updated DateTime 2 186.69 cm 25.1 kg/m2 65286.3 3 g 52 /min 98 % 98 % 98.24 [degF] 116/68 mm[Hg] Aracelis Hennessy MA [facility] 2 14:11:22 Date Recorded Body height Body mass index (BMI) Body weight Heart rate Oxygen saturation Oxygen saturation in Arterial blood by Pulse oximetry Body temperature Systolic And Diastolic Provider Name and Address Organization Details Last Updated DateTime 2 186.69 cm 25.5 kg/m2 54477.1 g 51 /min 98 % 98 % 98.24 [degF] 113/69 mm[Hg] Aracelis Hennessy MA [facility] 2 10:57:16 Date Recorded Body height Body mass index (BMI) Body weight Heart rate Oxygen saturation Oxygen saturation in Arterial blood by Pulse oximetry Body temperature Systolic And Diastolic Provider Name and Address Organization Details Last Updated DateTime 2 186.69 cm 25.6 kg/m2 34593.2 g 59 /min 97 % 97 % 98.1 [degF] 128/74 mm[Hg] Herminia Quan MA [facility] 2 15:34:04 Social History Question Answer Notes LastModified by Organizat ion Details LastModified Time Tobacco Smoking Status Never Smoker CARLOS A Anderson [facility] 03/10/2016 14:19:37 Is Blood Transfusion Acceptable In An Emergency? No [email or web address] Information not available 03/10/2016 What Is Your Level Of Caffeine Consumption? Moderate Information not available 10/23/2022 How Much Tobacco Do You Chew? None Information not available 10/07/2020 What Type Of Diet Are You Following? REGULAR [email or web address] Information not available 03/10/2016 Which Illicit Or Recreational Drugs Have You Used? None Information not available 10/07/2020 When Did You Quit Smoking? 0 N/a Information not available 10/07/2020 Live Alone Or With Others? With Others Information not available 07/06/2022 Do You Take Precautions To Prevent Distracted Driving? Yes [email or web address] Information not available 03/10/2016 How Often Do You Need To Have Someone Help You When You Read Instructions, Pamphlets, Or Other Written Material From Your Doctor Or Pharmacy? Sometimes Information not available 10/10/2021 Have You Served [...] Individual Who Tested Positive For COVID-19? Yes [email or web address] Information not available 10/10/2021 *AWV ONLY* Are [...] How Many Children Do You Have? 2 [email or web address] Information not available 03/10/2016 What Is Your Current Pack Years? 0 N/a Information not available 10/07/2020 Do You Use Protection During Sex? No [email or web address] Information not available 10/10/2021 Do You Use Your Seat Belt Or Car Seat Routinely? Yes [email or web address] Information not available 10/10/2021 Seat Belts Used Routinely Yes Information not available 07/06/2022 Are You Sexually Active? Yes [email or web address] Information not available 03/10/2016 Smoke Alarm In Home Yes Information not available 07/06/2022 Do You Have Smoke And Carbon Monoxide Detectors In Your Home? Yes [email or web address] Information not available 10/10/2021 At What Age Did You Start Smoking Tobacco? 0 Information not available 10/07/2020 Are You Passively Exposed To Smoke? No Information no t available 10/07/2020 How Much Tobacco Do You Smoke? No Information not available 10/07/2020 Do You Use Sunscreen Routinely? Yes [email or web address] Information not available 03/10/2016 How Many Years [...] is your level of alcohol consumption? Occasional [email or web address] Information not available 03/10/2016 Do you or have you ever used smokeless tobacco? Never used smokeless tobacco Information not available 10/10/2021 Are you currently employed? Yes [email or web address] Information not available 03/10/2016 Are you able to walk independently without assistance or assistive devices? YESWOREST Information not available 07/06/2022 Are you able to care for yourself independently? 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 04/05/2021 14:39:03 COVID-19, mRNA, LNP-S, PF, 30 mcg/0.3 mL dose 1 completed CARLOS A Escobar [facility] 12/26/2021 14:05:44 COVID-19, mRNA, LNP-S, PF, 30 mcg/0.3 mL dose 1 completed CARLOS A Escobar, [facility] 12/26/2021 14:05:44 Influenza, split virus, quadrivalent , PF 8 cancelled patient objection Not Available [facility] 10/18/2019 02:22:16 Influenza, split virus, quadrivalent , PF 9 cancelled patient objection Not Available [facility] 10/18/2019 02:22:10 Tdap 2 completed CARLOS A Lara [facility] 10/10/2021 15:22:13 Tdap [address] [facility] 04/05/2021 14:39:03 Past Encounters Encounter ID Performer Location Encounter Start Date Encounter Closed Date Diagnosis/Indication Diagnosis SNOMED-CT Code Diagnosis ICD10 Code Diagnosis IMO Codes Diagnosis Note [id number] [facility] er[facility] [address] [place] [address] 05/03/2007 00:00:00 [id number] autoEComm erce [address] [facility] [place] [address] 05/03/2007 00:00:00 [id number] auto[facility] erce [address] [place] [address] 05/03/2007 00:00:00 [id number] auto[facility] erce [address] [place] [address] 09/18/2007 00:00:00 [id number] autoEComm erce [address] [place] [address] 09/18/2007 00:00:00 [id number] [facility] erce [address] [place] [address] 09/18/2007 00:00:00 [id number] autoEComm erce [address] [place] [place] [address] 09/18/2007 00:00:00 [id number] autoEComm erce [address] [facility] [address] [place] [address] 10/03/2007 00:00:00 [id number] autoEComm erce [address] [facility] [place] [address] 10/03/2007 00:00:00 [id number] autoEComm erce [address] [facility],[address] [place] [address] 10/03/2007 00:00:00 [id number] autoEComm erce [address] [facility] [place] [address] 10/03/2007 00:00:00 [id number] autoEComm erce [address] [facility] [place] [address] 10/22/2007 00:00:00 [id number] autoEComm erce [address] [facility] [place] [address] 10/22/2007 00:00:00 [id number] autoEComm erce [address] [facility] [place] [address] 10/22/2007 00:00:00 [id number] autoEComm erce [address] [facility] [address] [place] [address] 10/22/2007 00:00:00 [id number] autoEComm erce [address] [facility] [address] [place] [address] 07/20/2008 00:00:00 [id number] autoEComm erce [address] [facility] [address] [place] [address] 07/20/2008 00:00:00 [id number] autoEComm erce [address] [facility] [address] [place] [address] 2 07/20/2008 00:00:00 [id number] autoEComm erce [address] [facility] [address] [place] [address] 07/20/2008 00:00:00 [id number] autoEComm erce [address] [facility] [address] [place] [address] 2 12/15/2008 00:00:00 [id number] autoEComm erce [address] [facility],[address] [place] [address] 2 12/15/2008 00:00:00 [id number] autoEComm erce [address] [facility] [place] [address] 12/15/2008 00:00:00 [id number] autoEComm erce [address] [facility] [place] [address] 2 12/15/2008 00:00:00 [id number] autoEComm erce [address] [facility] [place] [address] 2 06/10/2010 00:00:00 [id number] autoEComm erce [address] [facility] [place] [address] 2 06/10/2010 00:00:00 [id number] autoEComm erce [address] [facility] [place] [address] 06/10/2010 00:00:00 [id number] autoEComm erce [address] [facility] [place] [address] 2 10/28/2010 00:00:00 [id number] autoEComm erce [address] [facility] [place] [address] 11/06/2013 00:00:00 [id number] autoEComm erce [address] [facility] [place] [address] 02/13/2014 00:00:00 [id number] autoEComm jeze [address] [place] [address],[address] [place] [address] 02/13/2014 00:00:00 [id number] Edda Lew PA-C Main Office [address] [address] [place] [address] 01/27/2016 15:12:39 01/27/2016 16:12:42 Swelling of testicle 677039570 N50.8 Adult heal th examination 253301901 Z00.00 [id number] Ivonne matos MD Main Office [address] [address] 03/10/2016 14:09:37 03/10/2016 15:27:42 Adult health examination 518899524 Z00.00 Hyperlipidemia 95163699 E78.5 Swelling of testicle 438 870337 N50.8 Alopecia 61656918 L65.9 pt on finasterid e 1.25 mg from hair loss specialist /mirella Hemorrhoids 81258342 K64 .9 [id number] Edda eLw PA-C Main Office [address] [address] [place] [address] 03/12/2017 15:08:52 03/12/2017 16:44:08 Adult health examination 711232674 Z00.00 Hyperlipidemia 61090912 E78.5 Alopecia 97398372 L65.9 on med from hair loss specialist /mirella Upper resp iratory infection 93288339 J06.9 [id number] Edda Lew PA-C Main Office [address] [address] [place] [address] 08/05/2018 15:21:25 08/05/2018 16:21:16 Adult health examination 931056423 Z00.00 Needs infl uenza immunization 614006784 Z23 Hyperlipidemia 19737465 E78.5 Alopecia 68894293 L65.9 on med from hair loss specialist /mirella [id number] Solomon Castellano MD Main Office [address] [address] [place] [address] 04/04/2019 13:37:29 04/04/2019 14:28:39 Strain of trapezius muscle 379617012 S46.811A likely musculoske letal. recommend heat, massage, cyclobenza wong, stretching as tolerated. if sx do not improve we can refer to PT/ spine. 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 Pain of bi lateral hip joints 0000760771 6246224 M25.551 see below Chronic low back pain 27 9794995 M54.50 see above - will check xrays and get pmr eval Lumbosacra l radiculitis 82178710 M54.17 trial of gbn - enrique at hs - start c 2 tabs hs, may be all you need Lipoma of skin 930804335 D17.30 has had others excised in past - has a few new lipomas - one enrique is bothering him in RLQ - will get back to gen sx [id number] Ciaran Nunes MD Main Office [address] [address] [place] [address] 10/10/2021 14:10:07 10/10/2021 15:22:24 Adult health examination 288211853 Z00.00 Influenza vaccination declined 884266492 Z28.21 Chronic low back pain 27 9842754 M54.50 seen by pmr - had lumbar mri - unsure of results, rec cont f/u -- no sig help c gbn cont turmeric & gluc / chond as dir Pain of bi lateral hip joints 4044279591 3666440 M25.551 stable, consider second opinion if worse Hyperlipidemia 40496926 E78.5 Male pattern alopecia 87 044877 L64.9 cont med as per doll wig [employer] Hepatitis C screening 41 0352107 Z11.59 Administra tion of diphtheria, pertussis, and tetanus vaccine 272674191 Z23 [id number] Ciaran Nunes MD Main Office [address] [address] [place] [address] 12/26/2021 13:46:25 12/26/2021 14:51:04 Major depressive disorder 622363061 F32.1 moderate on phq, mild on león - trial c celexa, encouraged pt to call the mental health # on the back of his ins card [id number] Ciaran Nunes MD Main Office [address] [address] 07/06/2022 10:46:34 07/06/2022 11:56:09 Hordeolum externum of lower eyelid of left eye 2252445556 19295 H00.015 ? Chalazia vs hordeolum - trial c abx ointment - if no better, then rec f/u c eye md Hyperlipidemia 96951125 E78.5 Pain of le ft knee joint 9689287014 41553 M25.562 seen by ortho - reviewed note - cont hep, cont f/u c ortho - ? may need mri Lipoma of skin 881694542 D17.30 has had others excised in past - has a few new lipomas - one enrique is bothering him in RLQ - will get back to gen sx 9. - pt missed eval several months ago - re-opened order and forwarded to calibration specialist Hepatitis C screening 41 0300887 Z11.59 [id number] Hernandez Plasencia MD Main Office [address] [address] 07/26/2022 15:14:43 07/26/2022 16:09:04 Dysuria 70623365 R30.0 [id number] Ciaran Nunes MD Main Office [address] [address] 10/23/2022 14:02:42 10/23/2022 15:00:27 Adult health examination 637883511 Z00.00 Screening for malignant neoplasm of colon 810249645 Z12.11 encouraged pt to call his insurance company to see if colonoscop y is covered for age > 45 History of malignant basal cell neoplasm of skin 629263997 Z85.828 cont f/u c derm Lipoma 11078647 D17.9 multiple on trunk, legs Major depr essive disorder 117926811 F32.1 moderate on phq, mild on león - trial c celexa, encouraged pt to call the mental health # on the back of his ins card 1.23 - better lately, cont med as dir, no see therapist Internal hemorrhoids 904 15557 K64.8 no sig straining or bleeding, but [...] [place] Member ID Guarantor Name 03/06/2024 1 [place] [facility] Fam Cox [id number] Fam Cox 07/14/2021 1 [facility] - TIMBI-SHA SHOSH[employer] ZERO (HMO) Hailey Cox [id number] Fam Cox 07/14/2021 1 [facility] [employer] CONNECTORCARE TYPE II (HMO) [id number] Fam Snowdenin [id number] Fam Cox Notes Date Note Type Note Provider Name and Address Organization Details Recorded Time 10/10/2021 text/html Generic HPI TemplateReported by Patient here for annual pe. Edda Lew PA-C [address] [address], [place], [address], [facility] [place] 10/10/2021 15:17:36 12/26/2021 text/html Anxiety/Depressi onRepor marco antonio by PatientHPIFor quality, patient reportsmood worseandincreased anxiety(no panic attacks). For context, patient reportsmajor life stressorsandfamily problems. For severity, patient reportsdenies suicidal ideations. For associated symptoms, patient reportsdenies homicidal ideations. Edda Lew PA-C [address] [address], [place], [address], [facility] [place] 12/26/2021 14:48:59 07/06/2022 text/html ROS as [...] fevers. Normal blinking. Edda Lew PA-C [address] [address], [place], [address], [facility] [place] 07/06/2022 12:54:40 07/26/2022 text/html 42 year old male c/o burning on urination for past 4 days. No abdominal pressure/pain, frequency , urinary blood , fever, chills, penile discharge. Pt. reports some irritation on the urethra. U/a is normal. Pt. denies high risk sexual behavior. Grace Lew PA-C [address] [address], [place], [address], [facility] [place] 07/26/2022 16:48:27 10/23/2022 text/html Generic HPI TemplateReported by Patient here for annual pe. Edda Lew PA-C [address] [address], [place], [address], [facility] [place] 10/23/2022 15:04:47
--- OUTSIDE RECORDS SUMMARY | 2025-08-07 16:06 | XMS_ITS | Encounter Summary ---
Author Organization [employer] Address [address] [place] [address] Care Team Providers Care Rug Measurer Name Role Phone Unavailable Primary Care Provider Unavailabl e Encounter Details Date Type Department Care Team (Latest Contact Info) Description 07/25/2022 Abstract [facility] CONVERSIONS Dental, Provider, DDS Social History Tobacco [...]
--- OUTSIDE RECORDS SUMMARY | 2025-08-07 16:06 | XMS_ITS | Clinical Summary ---
Author Organization [facility] Address [address] [place] [phone] Phone Care Team Providers Care Traffic Technician Name Role Phone Stuart Coyle MD Primary [...] NSPG PCP [facility] [place] RODYENSE NON NSPG PCP [facility] [place] RODY[place] NON NSPG PCP [facility] RODYENSE NON NSPG PCP S[facility] CONNECTOR[facility]ARE WELLSENSE NON NSPG PCP [facility] Care Teams Traffic Technician Relationship Specialty Start Date End Date Stuart Coyle MD PCP - General Family Medicine 11/03/23 Additional Source Comments The information contained in this document represents components of the legal health record. It is not the complete legal health record.[facility]
[2025-08-14 16:29] LABS: Calprotectin, Fecal <5 mcg/g
== END 2025-08-07 14:27 | disposition home or self-care (01) ==
LOC: HO.LNP 14:26
PROVIDERS: Visit Provider Nurse Practitioner Family
DX: R74.8 Abnormal levels of other serum enzymes (principal)
CPT/HCPCS: 83993